=== PATIENT | male | born 1960 | race African-American/Black ===

== ENCOUNTER 2016-09-18 22:10 | Inpatient (IN) | payer OTHER ==
[~2016-09-18] VITALS: Ht 182.9 cm; Wt 82.0 kg
[2016-09-18 22:25] VITALS: BP 152/97; PULSE 129; RESP 18; TEMP 99; O2SAT 99
[2016-09-18] MEDS ORDERED: METF500T PO (22:32)
[2016-09-18] MEDS ORDERED: GLIP5TAB8 PO (22:32)
[2016-09-18] MEDS ORDERED: CYAN1TAB24 (22:32)
[2016-09-18] MEDS ORDERED: SODIUM CHLOR 0.9% 1000 ML INJ 1,000 ML IV ONE (22:45)
[2016-09-18] MEDS ORDERED: ONDANSETRON HCL 4 MG/2 ML VIAL IV ONE (22:45)
--- NOTE | 2016-09-18 22:47 | PD ---
HPI Chief Complaint: GI Complaint Time Seen by Provider: 22:26 Travel History International Travel<30 days: No Contact w/Intl Traveler<30days: No Traveled to known affect area: No History of Present Illness HPI The patient is a 56 year old male who presents to the [facility] emergency department with a history of nausea, vomiting, and diarrhea that began this morning at approximately 8 AM. The patient reports that he's had between 15 and 30 episodes of vomiting. He reports that he's had slightly less episodes of diarrhea. He reports that his emesis has been brown in color. He denies having any prior history of GI bleed. He does report having a history of diabetes mellitus. The patient was brought in by ambulance services and his blood sugar was reportedly in the 290s prior to arrival. The patient reports having midepigastric abdominal pain associated with this. I review systems, the patient denies any recent fevers, cough, congestion, neck pain, chest pain, shortness of breath, urinary symptoms, or neurologic symptoms. [facility] Past Medical History Narrative Medical The patient's past medical history is significant for diabetes mellitus. The patient is followed through the [facility] for his primary care. Diabetes: Yes Patient Takes Glucophage: Yes Tetanus Vaccination: > 5 Years Influenza Vaccination: No Past Surgical History Narrative Surgical The patient denies having any past surgical history. Surgical History: No Previous Surgery Social History Alcohol Use: Yes (DAILY) Tobacco Use: No Substance Use: No Allergies-Medications (Allergen,Severity, Reaction): Coded Allergies: No Known Allergies (Unverified , 09/18/16) Reported Meds & Prescriptions Reported Meds & Active Scripts Active Reported B12 (Cyanocobalamin) 1,000 Mcg Tab Glipizide 5 Mg Tab 5 Mg PO BIDAC Take 30 minutes before a meal Metformin (Metformin HCl) 500 Mg Tab 500 Mg PO BIDPC With meals Review of Systems Except as stated in HPI: all other systems reviewed are Neg General / Constitutional: No: Fever Eyes: No: Visual changes HENT: No: Headaches Cardiovascular: No: Chest Pain or Discomfort Respiratory: No: Shortness of Breath Gastrointestinal: Positive: Nausea, Vomiting, Diarrhea, Abdominal Pain, Changes in Bowel Habits, Indigestion, Loss of Appetite, No: Hematemesis, Hematochezia, Constipation Genitourinary: No: Dysuria Musculoskeletal: No: Pain Skin: No Rash Neurologic: No: Weakness, Focal Abnormalities, Change in Mentation, Slurred Speech, Sensory Disturbance Psychiatric: No: Depression Endocrine: No: Polydipsia Hematologic/Lymphatic: No: Easy Bruising Physical Exam Narrative General: The patient is a well-developed well-nourished male in no acute distress. Head and Neck exam: Head is normocephalic atraumatic. Eyes: EOMI, pupils are equal round and reactive to light. Nose: Midline septum with pink mucous membranes Mouth: Dentition unremarkable. Moist mucus membranes. Posterior oropharynx is not erythematous. No tonsillar hypertrophy. Uvula midline. Airway patent. Neck: No palpable lymphadenopathy. No nuchal rigidity. No thyromegaly. Cardiovascular: Sinus tachycardia in the low 100 without murmurs, gallops, or rubs. No pulse deficit to the extremities on simultaneous auscultation and palpation of his radial artery. Lungs: Clear to auscultation bilaterally. No wheezes, rhonchi, or rales. Abdomen: Soft, with tenderness on palpation of the midepigastric area, no other tenderness on palpation of the other quadrants of the abdomen. No guarding, rebound, or rigidity. Normal bowel sounds are audible. No tenderness on palpation of McBurney's point. Negative [place] sign. Extremities: No clubbing, cyanosis, or edema. 2+ pulses in all 4 extremities. No calf tenderness on motion. Back: No spinous process tenderness to palpation. No costovertebral angle tenderness to palpation. Neurologic Exam: Grossly nonfocal. Skin Exam: No rash noted. Intact skin that is warm and dry. Data Data Last Documented VS Vital Signs Date Time Temp Pulse Resp B/P Pulse Ox O2 Delivery O2 Flow Rate FiO2 09/18/16 23:33 113 18 148/92 99 Room Air 09/18/16 22:25 99.0 Orders Complete Blood Count With Diff (09/18/16 22:37) Comprehensive Metabolic Panel (09/18/16 22:37) Creatine Kinase (Cpk) (09/18/16 22:37) Ckmb (Isoenzyme) Profile (09/18/16 22:37) Troponin I (09/18/16 22:37) Act Partial Throm Time (Ptt) (09/18/16 22:37) Lipase (09/18/16 22:37) Urinalysis - C+S If Indicated (09/18/16 22:37) Fibrinogen (09/18/16 22:37) Magnesium (Mg) (09/18/16 22:37) Beta Hydroxybutyrate (Acetone) (09/18/16 22:37) Chest, Single Ap (09/18/16 22:37) Iv Access Insert/Monitor (09/18/16 22:37) Ecg Monitoring (09/18/16 22:37) Oximetry (09/18/16 22:37) Sodium Chlor 0.9% 1000 Ml Inj (Ns 1000 M (09/18/16 22:45) Ondansetron Inj (Zofran Inj) (09/18/16 22:45) Pantoprazole Inj (Protonix Inj) (09/18/16 23:00) Pantoprazole Inj (Protonix Inj) (09/18/16 23:00) CKMB (09/18/16 22:45) CKMB% (09/18/16 22:45) Sodium Chlor 0.9% 1000 Ml Inj (Ns 1000 M (09/19/16 00:15) Prothrombin Time / Inr (Pt) (09/19/16 00:15) Blood Gas Venous (Vbg) (09/19/16 00:16) Blood Glucose (09/19/16 00:26) Admit Order (Ed Use Only) (09/19/16 00:42) Labs Laboratory Tests Test 09/18/16 09/18/16 09/19/16 22:45 23:05 00:25 White Blood Count 12.5 TH/MM3 Red Blood Count 4.57 MIL/MM3 Hemoglobin 14.9 GM/DL Hematocrit 43.2 % Mean Corpuscular Volume 94.6 FL Mean Corpuscular Hemoglobin 32.7 PG Mean Corpuscular Hemoglobin 34.5 % Concent Red Cell Distribution Width 13.6 % Platelet Count 325 TH/MM3 Mean Platelet Volume 8.1 FL Neutrophils (%) (Auto) 90.6 % Lymphocytes (%) (Auto) 4.9 % Monocytes (%) (Auto) 4.2 % Eosinophils (%) (Auto) 0.0 % Basophils (%) (Auto) 0.3 % Neutrophils # (Auto) 11.3 TH/MM3 Lymphocytes # (Auto) 0.6 TH/MM3 Monocytes # (Auto) 0.5 TH/MM3 Eosinophils # (Auto) 0.0 TH/MM3 Basophils # (Auto) 0.0 TH/MM3 CBC Comment DIFF FINAL Differential Comment Activated Partial 21.3 SEC Thromboplast Time Fibrinogen 423 mg/dL Sodium Level 138 MEQ/L Potassium Level 4.7 MEQ/L Chloride Level 92 MEQ/L Carbon Dioxide Level 28.8 MEQ/L Anion Gap 17 MEQ/L Blood Urea Nitrogen 13 MG/DL Creatinine 1.64 MG/DL Estimat Glomerular Filtration 53 ML/MIN Rate Random Glucose 294 MG/DL Calcium Level 10.3 MG/DL Magnesium Level 2.6 MG/DL Total Bilirubin 1.1 MG/DL Aspartate Amino Transf 59 U/L (AST/SGOT) Alanine Aminotransferase 57 U/L (ALT/SGPT) Alkaline Phosphatase 108 U/L Total Creatine Kinase 284 U/L Creatine Kinase MB LESS THAN 0.5 NG/ML Troponin I LESS THAN 0.02 NG/ML Total Protein 9.4 GM/DL Albumin 4.3 GM/DL Lipase 109 U/L B-Hydroxybutyrate 1.19 MMOL/L Urine Color YELLOW Urine Turbidity CLEAR Urine pH 8.0 Urine Specific [place] 1.020 Urine Protein 30 mg/dL Urine Glucose (UA) 1000 mg/dL Urine Ketones 40 mg/dL Urine Occult Blood NEG Urine Nitrite NEG Urine Bilirubin NEG Urine Urobilinogen LESS THAN 2.0 MG/DL Urine Leukocyte Esterase NEG Urine RBC 7 /hpf Urine WBC 1 /hpf Urine Squamous Epithelial <1 /hpf Cells Urine Bacteria RARE /hpf Urine Mucus FEW /lpf Microscopic Urinalysis Comment CULT NOT INDICATED Blood Gas Puncture Site FROM IV LOCK Blood Gas Patient Temperature 98.6 Venous Blood pH 7.55 Venous Blood Partial Pressure 20 mmHg CO2 Venous Blood Partial Pressure 49 mmHg O2 Venous Blood HCO3 18 mmol/L Venous Blood Oxygen Saturation 86 % Venous Blood Oxygen Content 14.0 Vol % Venous Blood Base Excess -4.4 mmol/L Oxygen Delivery Device ROOM AIR Blood Gas Inspired Oxygen 21 % MDM Medical Decision Making Medical Screen Exam Complete: Yes Emergency Medical Condition: Yes Medical Record Reviewed: Yes Interpretation(s) Last Impressions Abdomen X-Ray 09/19/16 0000 Signed Impressions: Service Date/Time: Monday, September 19, 2016 01:28 - CONCLUSION: 1. No evidence of obstruction. Tristin Quispe MD Chest X-Ray 09/18/16 2237 Signed Impressions: Service Date/Time: Sunday, September 18, 2016 22:36 - CONCLUSION: No acute cardiopulmonary disease. Patria Neri MD Differential Diagnosis Viral versus bacterial gastroenteritis, versus GI bleed related to peptic ulcer disease, versus hemorrhagic esophagitis, versus Yadira-Ambriz tear, versus gastritis, versus acute pancreatitis Narrative Course During the course of the patients emergency department visit, the patients history, examination, and differential diagnosis were reviewed with the patient. The patient had IV access obtained and blood work sent for analysis. The patient states on a panel monitor with oximetry and blood pressure monitoring. The patient had an EKG done on arrival. The patient's EKG shows a sinus tachycardia rate of 112, nonspecific T-wave abnormalities, no acute ST segment elevation. The patient was initially provided normal saline 1 L IV fluid bolus, Zofran 4 mg IV. Gastric occult was done of his emesis and was positive for blood. The patient was started on Protonix 80 mg IV followed by a drip. The patients laboratory studies were reviewed and remarkable for a white count of 12.5, hemoglobin 14.9, platelets 325 with 90.6 neutrophils, CMP is remarkable for chloride of 92, anion gap 17, creatinine 1.64, glucose 294, calcium 10.3, magnesium 2.6, total bilirubin 1.1, AST 59, CPK 284, troponin I less than 0.02, lipase 109, PT 11.1, PTT 21.3, beta hydroxybutyrate is 1.19, urinalysis shows thousand glucose 40 ketones 7 RBCs otherwise unremarkable ABG reveals a pH of 7.55. Radiology studies were reviewed and remarkable for a chest x-ray that shows no acute abnormality. As the patient is not acidotic the patient was given regular insulin for hyperglycemia coverage subcutaneously. The patient was given 5 units subcutaneous 1. The patient was continued on normal saline for hydration, and given a second liter of normal saline IV fluids. The patients results were discussed with the patient, including the plan of care. I explained that further testing and/ or monitoring is indicated based on the patients history, examination, and/ or laboratory findings. Therefore, I recommended admission for additional evaluation. The patient expressed understanding and was agreeable with this plan. The patient was admitted to the hospital in guarded condition and [facility] a [facility] Physician Communication Physician Communication The patient's case was discussed with Dr. Ramsey who did agree to admit the patient for further evaluation and treatment at this time. Diagnosis Primary Impression: Nausea, vomiting, and diarrhea Additional Impression: Coffee ground emesis Admitting Information Admitting Physician Requests: Admit Eli Garcia MD Sep 18, 2016 22:47
--- NOTE | 2016-09-18 22:56 | RADRPT ---
EXAM DATE/TIME: 09/18/2016 22:36 [facility] COMPARISON: No previous studies available for comparison. INDICATIONS : Vomiting MEDICAL HISTORY : None. SURGICAL HISTORY : None. ENCOUNTER: Initial ACUITY: 1 day PAIN SCORE: 0/10 LOCATION: chest FINDINGS: The lungs are clear without infiltrate, nodule, or mass. There is no appreciable pleural effusion fo r technique. Heart and mediastinum are unremarkable. CONCLUSION: No acute cardiopulmonary disease. Patria Neri MD on September 18, 2016 at 22:53 Board Certified Radiologist. This report was verified electronically.
[2016-09-18 23:00] LABS: AUTOMATED NEUTROPHIL # 11.3 TH/MM3 (1.8-7.7); BASOPHIL % 0.3 % (0.0-2.0); HEMATOCRIT 43.2 % (39.0-51.0); HEMO FLAGS DIFF FINAL; LYMPH % 4.9 % (9.0-44.0); LYMPHOCYTE # 0.6 TH/MM3 (1.0-4.8); MEAN CELL VOLUME 94.6 FL (80.0-100.0); MEAN CORPUSCULAR HEMOGLOBIN 32.7 PG (27.0-34.0); MEAN CORPUSCULAR HGB CONC 34.5 % (32.0-36.0); MONO % 4.2 % (0.0-8.0); NEUT % 90.6 % (16.0-70.0); PLATELET COUNT 325 TH/MM3 (150-450); RED BLOOD COUNT 4.57 MIL/MM3 (4.50-5.90); RED CELL DISTRIBUTION WIDTH 13.6 % (11.6-17.2); WHITE BLOOD COUNT 12.5 TH/MM3 (4.0-11.0)
[2016-09-18] MEDS ORDERED: PANTOPRAZOLE INJ 80 MG in SODIUM CHLORIDE 0.9% INJ 35 ML IV ONE (23:00)
[2016-09-18 23:10] LABS: APTT (PATIENT) 21.3 SEC (24.3-30.1)
[2016-09-18 23:16] LABS: ALKALINE PHOSPHATASE 108 U/L (45-117); ALT (GPT) 57 U/L (12-78); ANION GAP 17 MEQ/L (5-15); AST (GOT) 59 U/L (15-37); BETA-HYDROXYBUTYRATE 1.19 MMOL/L (0.00-0.39); BICARBONATE 28.8 MEQ/L (21.0-32.0); BLOOD UREA NITROGEN 13 MG/DL (7-18); CHLORIDE 92 MEQ/L (98-107); CREATINE KINASE 284 U/L (39-308); GLOMERULAR FILTRATION RATE 53 ML/MIN (>89); MAGNESIUM 2.6 MG/DL (1.5-2.5); POTASSIUM 4.7 MEQ/L (3.5-5.1); SODIUM (NA) 138 MEQ/L (136-145); TOTAL BILIRUBIN ADULT 1.1 MG/DL (0.2-1.0)
[2016-09-18 23:28] LABS: CKMB LESS THAN 0.5 NG/ML (0.5-3.6)
[2016-09-18] MEDS: PANTOPRAZOLE INJ 80 MG in SODIUM CHLORIDE 0.9% INJ 100 ML IV SCH (23:32)
[2016-09-18 23:33] VITALS: BP 148/92; PULSE 113; RESP 18; O2SAT 99
[2016-09-19] VITALS (9 sets, daily range): BP systolic 125–176; BP diastolic 81–105; PULSE 78–121; RESP 17–20; TEMP 98.2–98.9; O2SAT 96–100
[2016-09-19 00:06] LABS: BACTERIA, URINE RARE /hpf; BLOOD, URINE NEG (NEG); COMMENT (UR) CULT NOT INDICATED; CULTURE IF INDICATED CULT NOT INDICATED; GLUCOSE,URINE 1000 mg/dL (NEG); KETONE, URINE 40 mg/dL (NEG); MUCUS URINE FEW /lpf (OCC); NITRITE,URINE NEG (NEG); SQUAMOUS EPITHELIAL CELL URINE <1 /hpf (0-5); URINE COLOR YELLOW (YELLW/STRAW)
[2016-09-19] MEDS ORDERED: SODIUM CHLOR 0.9% 1000 ML INJ 1,000 ML IV ONE (00:15)
[2016-09-19] MEDS ORDERED: SODIUM CHLOR 0.9% 1000 ML INJ 1,000 ML IV SCH (00:46)
[2016-09-19] MEDS ORDERED: SODIUM CHLORIDE 0.9% FLUSH 10 ML FLUSH IV FLUSH PRN (01:00)
[2016-09-19] MEDS ORDERED: INSULIN HUMAN REGULAR 1,000 UNITS/10 ML VIAL SQ ONE (01:00)
[2016-09-19] MEDS ORDERED: GLUCAGON 1 MG/ML VIAL OTHER PRN ×2 (01:00→01:30)
[2016-09-19] MEDS ORDERED: DEXTROSE 50% IN WATER 50 ML VIAL(D50) IV PUSH PRN ×2 (01:00→01:30)
[2016-09-19] MEDS ORDERED: NALOXONE HCL 0.4 MG/ML AMP IV PRN (01:00)
--- NOTE | 2016-09-19 01:04 | HHI.HP ---
[facility] Admission Diagnosis GI Bleed, Hyperglycemia, dehydration Diagnoses: Travel History International Travel<30 Days: No Contact w/Intl Traveler <30 Da: No Traveled to Known Affected Are: No History of Present Illness History from patient, ER physician to medication, and review of medical records. Patient reported that he came to the hospital because he's been having nausea vomiting which started today. Reports he last vomited about 5 times at least. Also reports of diarrhea which is about 5 times at niece as well. Reports black color stool. Also reports that the vomitus was black in color. ER physician also confirmed that the vomitus in ER was positive for occult blood. Patient denies taking any NSAIDs. He's not on any blood thinners. No fever. Denies any urinary burning or pain on urination. He does report of epigastric pain but stated that this only started after he vomited several times. Patient is a diabetic since age of [age] years old or so. He states that his A1c was 13 previously and currently is at 6. Review of Systems Except as stated in HPI: all other systems reviewed are Neg Past Family Social History Past Medical History dm Past Surgical History none Allergies: Coded Allergies: No Known Allergies (Unverified , 09/18/16) Family History mom breast cancer mom diabetic Social History no smoking drink socially no drugs lives by self, still drives Physical Exam Vital Signs Vital Signs Date Time Temp Pulse Resp B/P Pulse Ox O2 Delivery O2 Flow Rate FiO2 09/18/16 23:33 113 18 148/92 99 Room Air 09/18/16 22:25 99.0 129 18 152/97 99 Physical Exam GENERAL: This is a well-nourished, well-developed patient, in mild distress from constant nausea and vomiting and hiccups SKIN: No rashes, ecchymoses or lesions. Cool and dry. HEAD: Atraumatic. Normocephalic. No temporal or scalp tenderness. EYES: No scleral icterus. No injection or drainage. ENT: Nose without bleeding, purulent drainage or septal hematoma. Airway patent. NECK: Trachea midline. No JVD CARDIOVASCULAR: Regular rate and rhythm without murmurs, gallops, or rubs. RESPIRATORY: Clear to auscultation. Breath sounds equal bilaterally. No wheezes , rales, or rhonchi. GASTROINTESTINAL: Abdomen soft, non-tender, nondistended. . No guarding. MUSCULOSKELETAL: Extremities without clubbing, cyanosis, or edema. No calf tenderness. NEUROLOGICAL: Awake and alert. Motor and sensory grossly within normal limits. Normal speech. Laboratory Laboratory Tests Test 09/18/16 09/18/16 22:45 23:05 White Blood Count 12.5 Red Blood Count 4.57 Hemoglobin 14.9 Hematocrit 43.2 Mean Corpuscular Volume 94.6 Mean Corpuscular Hemoglobin 32.7 Mean Corpuscular Hemoglobin 34.5 Concent Red Cell Distribution Width 13.6 Platelet Count 325 Mean Platelet Volume 8.1 Neutrophils (%) (Auto) 90.6 Lymphocytes (%) (Auto) 4.9 Monocytes (%) (Auto) 4.2 Eosinophils (%) (Auto) 0.0 Basophils (%) (Auto) 0.3 Neutrophils # (Auto) 11.3 Lymphocytes # (Auto) 0.6 Monocytes # (Auto) 0.5 Eosinophils # (Auto) 0.0 Basophils # (Auto) 0.0 CBC Comment DIFF FINAL Differential Comment Activated Partial 21.3 Thromboplast Time Fibrinogen 423 Sodium Level 138 Potassium Level 4.7 Chloride Level 92 Carbon Dioxide Level 28.8 Anion Gap 17 Blood Urea Nitrogen 13 Creatinine 1.64 Estimat Glomerular Filtration 53 Rate Random Glucose 294 Calcium Level 10.3 Magnesium Level 2.6 Total Bilirubin 1.1 Aspartate Amino Transf 59 (AST/SGOT) Alanine Aminotransferase 57 (ALT/SGPT) Alkaline Phosphatase 108 Total Creatine Kinase 284 Creatine Kinase MB LESS THAN 0.5 Troponin I LESS THAN 0.02 Total Protein 9.4 Albumin 4.3 Lipase 109 B-Hydroxybutyrate 1.19 Urine Color YELLOW Urine Turbidity CLEAR Urine pH 8.0 Urine Specific [place] 1.020 Urine Protein 30 Urine Glucose (UA) 1000 Urine Ketones 40 Urine Occult Blood NEG Urine Nitrite NEG Urine Bilirubin NEG Urine Urobilinogen LESS THAN 2.0 Urine Leukocyte Esterase NEG Urine RBC 7 Urine WBC 1 Urine Squamous Epithelial <1 Cells Urine Bacteria RARE Urine Mucus FEW Microscopic Urinalysis Comment CULT NOT INDICATED Result Diagram: 09/18/16224409/18/162244 Imaging Last 48 hours Impressions Abdomen X-Ray 09/19/16 0000 Signed Impressions: Service Date/Time: Monday, September 19, 2016 01:28 - CONCLUSION: 1. No evidence of obstruction. Tristin Quispe MD Chest X-Ray 09/18/16 2237 Signed Impressions: Service Date/Time: Sunday, September 18, 2016 22:36 - CONCLUSION: No acute cardiopulmonary disease. Patria Neri MD Assessment and Plan Assessment and Plan Impression: Nausea/vomiting/diarrhealikely gastroenteritis Upper GI bleedlikely from gastritis/esophagitis. Mild anion gap metabolic acidosislikely from renal failure secondary to dehydration, with GI loss. Would need to watch out for DKA. Acute renal failuresecondary to dehydration/volume loss History of diabetes Plan: Patient was given normal saline 2 L bolus total. We'll repeat BMP status post hydration and follow anion gap If anion gap is normal, will hydrate patient with D5 half normal saline at 100 cc per hour. Cover with low-dose sliding scale while on D5 IV fluids. We'll monitor fingersticks every 4 hours. Nausea control. Would obtain KUB to rule out perforation/air under diaphragm. At this point, CT abdomen will not be obtained since patient cannot tolerate by mouth contrast. Abdomen is also quite benign on examination apart from the fact that he has nausea and vomiting and diarrhea. We'll check stool studies. Pantoprazole IV drip. GI consult. Nothing by mouth. Serial hemoglobin hematocrit. DVT prophylaxiswith SCD. GI prophylaxis on pantoprazole. Physician Certification 2 Midnight Certification Type: Admission for Inpatient Services Order for Inpatient Services The services are ordered in accordance with Medicare regulations or non- Medicare payer requirements, as applicable. In the case of services not specified as inpatient-only, they are appropriately provided as inpatient services in accordance with the 2-midnight benchmark. Estimated LOS (days): 2 days is the estimated time the patient will need to remain in the hospital, assuming treatment plan goals are met and no additional complications. Post-Hospital Plan: Kathia Coronado MD September 19, 2016 01:04
[2016-09-19] MEDS: ONDANSETRON HCL 4 MG/2 ML VIAL IVP PRN ×4 (01:07→23:39)
[2016-09-19 01:13] LABS: BLOOD GAS VENOUS BASE EXCESS -4.4 mmol/L (-2-2); BLOOD GAS VENOUS HCO3 18 mmol/L (22-26); BLOOD GAS VENOUS O2 HGB SAT 86 % (70-76); BLOOD GAS VENOUS PCO2 20 mmHg (44-48); BLOOD GAS VENOUS PO2 49 mmHg (35-40); BLOOD GAS VENOUS pH 7.55 (7.360-7.400); CRITICAL VALUE YES; FIO2 21 %; OXYGEN DEVICE ROOM AIR; TEMP CORR TO 98.6
[2016-09-19 01:14] LABS: DRAW SITE FROM IV LOCK; STAT YES
--- NOTE | 2016-09-19 02:00 | RADRPT ---
EXAM DATE/TIME: 09/19/2016 01:28 [facility] COMPARISON: No previous studies available for comparison. INDICATIONS : Gastrointestinal bleed. Nausea, Vomitting. MEDICAL HISTORY : Diabetes mellitus type I. SURGICAL HISTORY : None. ENCOUNTER: Initial ACUITY: 1 day PAIN SCORE: 2/10 LOCATION: Abdomen FINDINGS: Supine view of the abdomen was performed. The abdominal bowel gas pattern is normal. No abnormal ma sses, calcifications, or organomegaly is seen. The osseous structures are unremarkable. CONCLUSION: 1. No evidence of obstruction. Tristin Quispe MD on September 19, 2016 at 1:58 Board Certified Radiologist. This report was verified electronically.
[2016-09-19] MEDS: DEXT 5%-NACL 0.45% 1000 ML INJ 1,000 ML IV SCH ×3 (02:40→23:15)
[2016-09-19 03:04] LABS: HEMATOCRIT 40.5 % (39.0-51.0); REVIEW FLAG FINAL
[2016-09-19 03:20] LABS: BICARBONATE 30.7 MEQ/L (21.0-32.0); POTASSIUM 3.4 MEQ/L (3.5-5.1)
[2016-09-19 03:26] LABS: PROTHROMBIN TIME - PATIENT 11.1 SEC (9.8-11.6)
[2016-09-19 06:53] LABS: ALKALINE PHOSPHATASE 103 U/L (45-117); ALT (GPT) 54 U/L (12-78); ANION GAP 10 MEQ/L (5-15); AST (GOT) 42 U/L (15-37); BICARBONATE 30.8 MEQ/L (21.0-32.0); BLOOD UREA NITROGEN 11 MG/DL (7-18); CHLORIDE 100 MEQ/L (98-107); GLOMERULAR FILTRATION RATE 75 ML/MIN (>89); POTASSIUM 3.3 MEQ/L (3.5-5.1); SODIUM (NA) 141 MEQ/L (136-145)
[2016-09-19] MEDS ORDERED: INSULIN ASPART SUPPLEMENTAL SCALE SQ SCH (07:00)
[2016-09-19 07:09] LABS: BASOPHIL % 0.2 % (0.0-2.0); HEMATOCRIT 41.7 % (39.0-51.0); HEMO FLAGS DIFF FINAL; LYMPH % 6.9 % (9.0-44.0); LYMPHOCYTE # 0.9 TH/MM3 (1.0-4.8); MEAN CELL VOLUME 94.6 FL (80.0-100.0); MEAN CORPUSCULAR HEMOGLOBIN 32.1 PG (27.0-34.0); MONO % 5.1 % (0.0-8.0); NEUT % 87.8 % (16.0-70.0); PLATELET COUNT 274 TH/MM3 (150-450); RED BLOOD COUNT 4.41 MIL/MM3 (4.50-5.90); WHITE BLOOD COUNT 12.5 TH/MM3 (4.0-11.0)
[2016-09-19] MEDS: INSULIN ASPART SUPPLEMENTAL SCALE SQ SCH ×4 (07:28→23:14)
[2016-09-19] MEDS: POTASSIUM CHLOR 20 MEQ PREMIX 100 ML IV SCH ×2 (07:28→08:39)
[2016-09-19] MEDS: SODIUM CHLORIDE 0.9% FLUSH 10 ML FLUSH IV FLUSH SCH ×2 (08:39→20:16)
--- NOTE | 2016-09-19 09:33 | PD.CONS ---
HPI History of Present Illness This is a 56 year old male who came to the emergency room for evaluation of nausea and vomiting. His symptoms began suddenly yesterday evening around 8 PM. He states that he did not have anything to eat prior to the onset of his symptoms. He complains of nausea and vomiting with coffee ground emesis. He also complains of moderate epigastric discomfort which he describes as a severe gas pain. He feels that if he could just belch, his pain would improve. However, whenever he goes to belch he actually vomits a small amount of coffee ground emesis. He also complains of black tarry stools since yesterday. He does not normally have reflux, but states that he has been having severe heartburn since this morning. He also reports a 27 pound weight loss over the past year (unintentionally). He denies any history of peptic ulcer disease. He denies the use of ibuprofen or Aleve. He does drink alcohol, although the amount is unclear. He states that he has not had any ETOH in 3 weeks and then drank on (unable to quantify amount) and started feeling bad on Monday , but is unable to describe this further. He has never had an EGD/Colonoscopy. (Dianna Denise) PFSH Past Medical History Diabetes Past Surgical History Denies (Dianna Denise) Coded Allergies: No Known Allergies (Unverified , 09/18/16) Medications Allergies Coded Allergies Type Severity Reaction Last Updated Verified No Known Allergies 09/18/16 No Active Scripts Medications Dose Route/Sig Days Date Category Dose Instructions B12 (Cyanocobalamin) 1,000 Mcg Tab 09/18/16 Reported Glipizide 5 Mg Tab 5 Mg PO BIDAC 09/18/16 Reported Take 30 minutes before a meal Metformin (Metformin HCl) 500 Mg Tab 500 Mg PO BIDPC 09/18/16 Reported With meals Family History Mom breast cancer, DM Social History Denies tobacco ETOH, amount unclear. He is unable to quantify (Dianna Denise) Review of Systems Constitutional: COMPLAINS OF: Fatigue, Weight loss, Change in appetite Respiratory: DENIES: Cough Cardiovascular: DENIES: Chest pain Gastrointestinal: COMPLAINS OF: Abdominal pain, Black stools, Diarrhea, Nausea , Vomiting, Heartburn, Hematemesis, DENIES: Constipation Musculoskeletal: DENIES: Joint pain Integumentary: DENIES: Abnormal pigmentation Hematologic/lymphatic: DENIES: Bruising Neurologic: DENIES: Headache Psychiatric: DENIES: Confusion (HowieDianna Wallace DULCE) GI Exam Vitals I&O Vital Signs Date Time Temp Pulse Resp B/P Pulse Ox O2 Delivery O2 Flow Rate FiO2 09/19/16 08:00 98.2 121 18 125/83 97 09/19/16 05:27 116 09/19/16 05:03 Room Air 09/19/16 04:25 98.5 118 17 165/95 98 09/19/16 01:30 118 18 146/81 98 Room Air 09/18/16 23:33 113 18 148/92 99 Room Air 09/18/16 22:25 99.0 129 18 152/97 99 I/O 09/18/16 09/18/16 09/18/16 09/19/16 09/19/16 09/19/16 07:00 15:00 23:00 07:00 15:00 23:00 Intake Total 0 ml Balance 0 ml Intake Oral 0 ml # Voids 1 # Bowel Movements 0 Imaging Last Impressions Abdomen X-Ray 09/19/16 0000 Signed Impressions: Service Date/Time: Monday, September 19, 2016 01:28 - CONCLUSION: 1. No evidence of obstruction. Tristin Quispe MD Chest X-Ray 09/18/167 Signed Impressions: Service Date/Time: Sunday, September 18, 2016 22:36 - CONCLUSION: No acute cardiopulmonary disease. Patria Neri MD Laboratory Test 09/18/16 09/18/16 09/19/16 09/19/16 22:45 23:05 00:25 02:35 White Blood Count 12.5 TH/MM3 Red Blood Count 4.57 MIL/MM3 Hemoglobin 14.9 GM/DL 14.0 GM/DL Hematocrit 43.2 % 40.5 % Mean Corpuscular Volume 94.6 FL Mean Corpuscular Hemoglobin 32.7 PG Mean Corpuscular Hemoglobin 34.5 % Concent Red Cell Distribution Width 13.6 % Platelet Count 325 TH/MM3 Mean Platelet Volume 8.1 FL Neutrophils (%) (Auto) 90.6 % Lymphocytes (%) (Auto) 4.9 % Monocytes (%) (Auto) 4.2 % Eosinophils (%) (Auto) 0.0 % Basophils (%) (Auto) 0.3 % Neutrophils # (Auto) 11.3 TH/MM3 Lymphocytes # (Auto) 0.6 TH/MM3 Monocytes # (Auto) 0.5 TH/MM3 Eosinophils # (Auto) 0.0 TH/MM3 Basophils # (Auto) 0.0 TH/MM3 CBC Comment DIFF FINAL Differential Comment Activated Partial 21.3 SEC Thromboplast Time Fibrinogen 423 mg/dL Sodium Level 138 MEQ/L 143 MEQ/L Potassium Level 4.7 MEQ/L 3.4 MEQ/L Chloride Level 92 MEQ/L 100 MEQ/L Carbon Dioxide Level 28.8 MEQ/L 30.7 MEQ/L Anion Gap 17 MEQ/L 12 MEQ/L Blood Urea Nitrogen 13 MG/DL 11 MG/DL Creatinine 1.64 MG/DL 1.38 MG/DL Estimat Glomerular Filtration 53 ML/MIN 64 ML/MIN Rate Random Glucose 294 MG/DL 247 MG/DL Calcium Level 10.3 MG/DL 9.4 MG/DL Magnesium Level 2.6 MG/DL Total Bilirubin 1.1 MG/DL Aspartate Amino Transf 59 U/L (AST/SGOT) Alanine Aminotransferase 57 U/L (ALT/SGPT) Alkaline Phosphatase 108 U/L Total Creatine Kinase 284 U/L Creatine Kinase MB LESS THAN 0.5 NG/ML Troponin I LESS THAN 0.02 NG/ML Total Protein 9.4 GM/DL Albumin 4.3 GM/DL Lipase 109 U/L B-Hydroxybutyrate 1.19 MMOL/L Urine Color YELLOW Urine Turbidity CLEAR Urine pH 8.0 Urine Specific [place] 1.020 Urine Protein 30 mg/dL Urine Glucose (UA) 1000 mg/dL Urine Ketones 40 mg/dL Urine Occult Blood NEG Urine Nitrite NEG Urine Bilirubin NEG Urine Urobilinogen LESS THAN 2.0 MG/DL Urine Leukocyte Esterase NEG Urine RBC 7 /hpf Urine WBC 1 /hpf Urine Squamous Epithelial <1 /hpf Cells Urine Bacteria RARE /hpf Urine Mucus FEW /lpf Microscopic Urinalysis Comment CULT NOT INDICATED Blood Gas Puncture Site FROM IV LOCK Blood Gas Patient Temperature 98.6 Venous Blood pH 7.55 Venous Blood Partial Pressure 20 mmHg CO2 Venous Blood Partial Pressure 49 mmHg O2 Venous Blood HCO3 18 mmol/L Venous Blood Oxygen Saturation 86 % Venous Blood Oxygen Content 14.0 Vol % Venous Blood Base Excess -4.4 mmol/L Oxygen Delivery Device ROOM AIR Blood Gas Inspired Oxygen 21 % Prothrombin Time 11.1 SEC Prothromb Time International 1.0 RATIO Ratio Blood Type A POSITIVE Antibody Screen NEGATIVE Blood Bank Comment Test 09/19/16 05:41 White Blood Count 12.5 TH/MM3 Red Blood Count 4.41 MIL/MM3 Hemoglobin 14.2 GM/DL Hematocrit 41.7 % Mean Corpuscular Volume 94.6 FL Mean Corpuscular Hemoglobin 32.1 PG Mean Corpuscular Hemoglobin 34.0 % Concent Red Cell Distribution Width 14.0 % Platelet Count 274 TH/MM3 Mean Platelet Volume 7.9 FL Neutrophils (%) (Auto) 87.8 % Lymphocytes (%) (Auto) 6.9 % Monocytes (%) (Auto) 5.1 % Eosinophils (%) (Auto) 0.0 % Basophils (%) (Auto) 0.2 % Neutrophils # (Auto) 11.0 TH/MM3 Lymphocytes # (Auto) 0.9 TH/MM3 Monocytes # (Auto) 0.6 TH/MM3 Eosinophils # (Auto) 0.0 TH/MM3 Basophils # (Auto) 0.0 TH/MM3 CBC Comment DIFF FINAL Differential Comment Sodium Level 141 MEQ/L Potassium Level 3.3 MEQ/L Chloride Level 100 MEQ/L Carbon Dioxide Level 30.8 MEQ/L Anion Gap 10 MEQ/L Blood Urea Nitrogen 11 MG/DL Creatinine 1.21 MG/DL Estimat Glomerular Filtration 75 ML/MIN Rate Random Glucose 226 MG/DL Calcium Level 9.5 MG/DL Total Bilirubin 1.0 MG/DL Aspartate Amino Transf 42 U/L (AST/SGOT) Alanine Aminotransferase 54 U/L (ALT/SGPT) Alkaline Phosphatase 103 U/L Total Protein 8.9 GM/DL Albumin 4.2 GM/DL Physical Examination HEENT: Normocephalic; atraumatic; no jaundice CHEST: CTA CARDIAC: RRR ABDOMEN: Soft, nondistended, moderate epigastric tenderness; no hepatosplenomegaly; bowel sounds are present in all four quadrants. EXTREMITIES: No clubbing, cyanosis, or edema. SKIN: Normal; no rash; no jaundice. CAR WRECKER: No focal deficits; alert and oriented times three. (Dianna Denise) Assessment and Plan Plan ASSESSMENT: - Upper GIB. 1 day hx of coffee ground emesis and melena. No hx PUD. Unclear ETOH use- downplays and unable to quantify. No NSAID use. H/H stable 14.2/ 41.7. PPI gtt. - N/V, Abdominal pain. Abdomen X-Ray (09/19/16)---> 1. No evidence of obstruction. Reports moderate epigastric pain x 1 day. PPI - GERD. States he does not usually have this but has severe heartburn/reflux since he woke up. PPI - Mild elevation of LFTs. Improved. T. Bili 1.0, AST 42, ALT 54, Alk Phosph 103. - VALERIA, improved. - DM per primary. PLAN: - Plan for egd in am - Obtain consents - Clear liquids - NPO after MN - Protonix Gtt - CBC, CMP in am - Supportive care - Further recommendations to follow based on results of above - Pt seen and examined by Dr. Pimentel and myself and this note is written on his behalf (Dianna Denise) Physician Comments Seen and examined with DULCE, egd planned for tomorrow. Discussed with pt. Thank you. (Karely Pimentel MD) Dianna Denise September 19, 2016 09:33 Karely Pimentel MD September 19, 2016 20:44
[2016-09-19] MEDS: PANTOPRAZOLE INJ 80 MG in SODIUM CHLORIDE 0.9% INJ 100 ML IV SCH ×3 (10:39→23:15)
[2016-09-19 12:57] LABS: REVIEW FLAG FINAL
[2016-09-19 16:40] LABS: REVIEW FLAG FINAL
[2016-09-19] MEDS: MORPHINE SULFATE 4 MG/ML INJ IV PUSH PRN ×2 (20:15→23:39)
[2016-09-19] MEDS: METOCLOPRAMIDE HCL 10 MG/2 ML VIAL IV PUSH PRN (20:15)
--- NOTE | 2016-09-19 22:51 | EKG ---
Date Performed: 09/18/2016 Time Performed: 22:25:22 PTAGE: 56 years EKG: SINUS TACHYCARDIA NONSPECIFIC T-WAVE ABNORMALITY ABNORMAL RHYTHM ECG NO PREVIOUS TRACING DOCTOR: Khanh Kim Interpretating Date/Time 09/19/2016 22:48:47
[2016-09-20] VITALS (7 sets, daily range): BP systolic 109–187; BP diastolic 76–117; PULSE 85–108; RESP 17–19; TEMP 98–98.6; O2SAT 95–99
[2016-09-20] MEDS ORDERED: CHLORHEXIDINE GLUCONATE 2 % 1 PACK (2 CLOTHS) TOPICAL PRN (05:15)
[2016-09-20] MEDS ORDERED: INSULIN HUMAN REGULAR 1,000 UNITS/10 ML VIAL SQ PRN (05:15)
[2016-09-20] MEDS ORDERED: LACTATED RINGER'S 1000 ML IV PRN (05:15)
[2016-09-20] MEDS ORDERED: POVIDONE IODINE 5% (ANTISEPSIS KIT) 4 APPLICATIONS EACH NARE PRN (05:15)
[2016-09-20] MEDS ORDERED: METOPROLOL TARTRATE 25 MG TAB PO PRN (05:15)
[2016-09-20] MEDS ORDERED: SODIUM CHLORID 0.9% 500 ML IV PRN (05:15)
[2016-09-20] MEDS: INSULIN ASPART SUPPLEMENTAL SCALE SQ SCH ×4 (06:38→21:47)
--- NOTE | 2016-09-20 08:17 | HHI.PR ---
Subjective Remarks This is a pleasant 56 y/o male who came to ER with Nausea, vomit, Melenic stools , loose stools, he has DM II, patient seen in his bedroom, no signs of bleeding, awaiting for EGD and Colonoscopy today, stable in his bedroom, no nausea, vomit or diarrhea. discussed with nurse Miss Ayala Objective Vital Signs Date Time Temp Pulse Resp B/P Pulse Ox O2 Delivery O2 Flow Rate FiO2 09/20/16 03:40 98.2 92 18 109/76 98 09/20/16 00:10 98.6 104 17 146/96 95 09/19/16 20:45 100 129/82 09/19/16 19:30 98.9 113 17 176/105 98 153/103 09/19/16 18:55 Room Air 09/19/16 16:30 98.8 108 20 166/102 96 09/19/16 12:00 78 09/19/16 11:50 98.5 112 20 145/91 100 I/O 09/19/16 09/19/16 09/19/16 09/20/16 09/20/16 09/20/16 07:00 15:00 23:00 07:00 15:00 23:00 Intake Total 0 ml 240 ml 1240 ml 726 ml Output Total 400 ml Balance 0 ml -160 ml 1240 ml 726 ml Intake Oral 0 ml 240 ml 240 ml 0 ml IV Total 1000 ml 726 ml Output Urine Total 400 ml # Voids 1 0 1 # Bowel Movements 0 0 0 0 Result Diagram: 09/19/16 1537 09/19/16 0541 Imaging Last Impressions Abdomen X-Ray 09/19/16 0000 Signed Impressions: Service Date/Time: Monday, September 19, 2016 01:28 - CONCLUSION: 1. No evidence of obstruction. Tristin Quispe MD Chest X-Ray 09/18/16 1027 Signed Impressions: Service Date/Time: Sunday, September 18, 2016 22:36 - CONCLUSION: No acute cardiopulmonary disease. Patria Neri MD Procedures No procedures performed. Other Results Laboratory Tests Test 09/18/16 09/18/16 09/19/16 09/19/16 22:45 23:05 00:25 02:35 Activated Partial 21.3 SEC Thromboplast Time Fibrinogen 423 mg/dL Magnesium Level 2.6 MG/DL Total Creatine Kinase 284 U/L Creatine Kinase MB LESS THAN 0.5 NG/ML Troponin I LESS THAN 0.02 NG/ML Lipase 109 U/L B-Hydroxybutyrate 1.19 MMOL/L Urine Color YELLOW Urine Turbidity CLEAR Urine pH 8.0 Urine Specific [place] 1.020 Urine Protein 30 mg/dL Urine Glucose (UA) 1000 mg/dL Urine Ketones 40 mg/dL Urine Occult Blood NEG Urine Nitrite NEG Urine Bilirubin NEG Urine Urobilinogen LESS THAN 2.0 MG/DL Urine Leukocyte Esterase NEG Urine RBC 7 /hpf Urine WBC 1 /hpf Urine Squamous Epithelial <1 /hpf Cells Urine Bacteria RARE /hpf Urine Mucus FEW /lpf Microscopic Urinalysis Comment CULT NOT INDICATED Blood Gas Puncture Site FROM IV LOCK Blood Gas Patient Temperature 98.6 Venous Blood pH 7.55 Venous Blood Partial Pressure 20 mmHg CO2 Venous Blood Partial Pressure 49 mmHg O2 Venous Blood HCO3 18 mmol/L Venous Blood Oxygen Saturation 86 % Venous Blood Oxygen Content 14.0 Vol % Venous Blood Base Excess -4.4 mmol/L Oxygen Delivery Device ROOM AIR Blood Gas Inspired Oxygen 21 % Prothrombin Time 11.1 SEC Prothromb Time International 1.0 RATIO Ratio Blood Type A POSITIVE Antibody Screen NEGATIVE Blood Bank Comment Test 09/19/16 09/19/16 05:41 15:37 White Blood Count 12.5 TH/MM3 Red Blood Count 4.41 MIL/MM3 Mean Corpuscular Volume 94.6 FL Mean Corpuscular Hemoglobin 32.1 PG Mean Corpuscular Hemoglobin 34.0 % Concent Red Cell Distribution Width 14.0 % Platelet Count 274 TH/MM3 Mean Platelet Volume 7.9 FL Neutrophils (%) (Auto) 87.8 % Lymphocytes (%) (Auto) 6.9 % Monocytes (%) (Auto) 5.1 % Eosinophils (%) (Auto) 0.0 % Basophils (%) (Auto) 0.2 % Neutrophils # (Auto) 11.0 TH/MM3 Lymphocytes # (Auto) 0.9 TH/MM3 Monocytes # (Auto) 0.6 TH/MM3 Eosinophils # (Auto) 0.0 TH/MM3 Basophils # (Auto) 0.0 TH/MM3 CBC Comment DIFF FINAL Differential Comment Sodium Level 141 MEQ/L Potassium Level 3.3 MEQ/L Chloride Level 100 MEQ/L Carbon Dioxide Level 30.8 MEQ/L Anion Gap 10 MEQ/L Blood Urea Nitrogen 11 MG/DL Creatinine 1.21 MG/DL Estimat Glomerular Filtration 75 ML/MIN Rate Random Glucose 226 MG/DL Calcium Level 9.5 MG/DL Total Bilirubin 1.0 MG/DL Aspartate Amino Transf 42 U/L (AST/SGOT) Alanine Aminotransferase 54 U/L (ALT/SGPT) Alkaline Phosphatase 103 U/L Total Protein 8.9 GM/DL Albumin 4.2 GM/DL Hemoglobin 13.2 GM/DL Hematocrit 38.0 % Objective Remarks GENERAL: No acute distress. SKIN: No rashes, ecchymoses or lesions. Cool and dry. HEAD: Atraumatic. Normocephalic. No temporal or scalp tenderness. EYES: No scleral icterus. No injection or drainage. ENT: Nose without bleeding, purulent drainage or septal hematoma. Airway patent. NECK: Trachea midline. No JVD CARDIOVASCULAR: Regular rate and rhythm without murmurs, gallops, or rubs. RESPIRATORY: Clear to auscultation. Breath sounds equal bilaterally. No wheezes , rales, or rhonchi. GASTROINTESTINAL: Abdomen soft, non-tender, nondistended. . No guarding. MUSCULOSKELETAL: Extremities without clubbing, cyanosis, or edema. No calf tenderness. NEUROLOGICAL: Awake and alert. Motor and sensory grossly within normal limits. Normal speech. Medications and IVs Current Medications Medications (Trade) Dose Ordered Sig/[place] Route Start Time Stop Time Status Last Admin (Protonix Inj/NS Inj) 100 ml @ 10 mls/hr CONTINUOUS IV 09/18/16 23:00 09/19/16 23:15 (NS Flush) 2 ml UNSCH PRN IV FLUSH 09/19/16 01:00 (NS Flush) 2 ml BID IV FLUSH 09/19/16 09:00 (Zofran Inj) 4 mg Q6H PRN IVP 09/19/16 01:00 09/19/16 23:39 Naloxone HCl 0.4 mg 0.4 mg UNSCH PRN IV 09/19/16 01:00 (D5W-05/23 NS 1000 ml Inj) 1,000 ml @ 84 mls/hr [id number] IV 09/19/16 01:30 09/19/16 23:15 (D50w (Vial) Inj) 25 ml UNSCH PRN IV PUSH 09/19/16 01:30 (Glucagon Inj) 1 mg UNSCH PRN OTHER 09/19/16 01:30 (Reglan Inj) 10 mg Q8H PRN IV PUSH 09/19/16 19:45 09/19/16 20:15 Morphine Sulfate 2 mg 2 mg Q3H PRN IV PUSH 09/19/16 19:45 09/19/16 23:39 Lactated Ringer's 1,000 ml @ 30 mls/hr Q24H PRN IV 09/20/16 05:15 09/23/16 05:14 (NS 500 ml Inj) 500 ml @ 30 mls/hr [id number] PRN IV 09/20/16 05:15 09/23/16 05:14 A/P Assessment and Plan 1. Upper GI bleed, Given IV fluids, on Protonix Drip, will have EGD and Colonoscopy later today. 2. DM II sliding scale. stable 3. Hypokalemia replaced and following. DVT prophylaxiswith SCD. GI prophylaxis on pantoprazole. Attending Attestation Expected later today or tomorrow AM Jacques Mauro MD September 20, 2016 08:16
[2016-09-20 08:22] LABS: AUTOMATED NEUTROPHIL # 6.2 TH/MM3 (1.8-7.7); BASOPHIL % 0.3 % (0.0-2.0); EOSINOPHIL % 0.2 % (0.0-4.0); HEMATOCRIT 38.9 % (39.0-51.0); HEMO FLAGS DIFF FINAL; LYMPH % 19.8 % (9.0-44.0); LYMPHOCYTE # 1.7 TH/MM3 (1.0-4.8); MEAN CELL VOLUME 95.6 FL (80.0-100.0); MEAN CORPUSCULAR HEMOGLOBIN 32.3 PG (27.0-34.0); MEAN CORPUSCULAR HGB CONC 33.8 % (32.0-36.0); MONO % 9.3 % (0.0-8.0); NEUT % 70.4 % (16.0-70.0); PLATELET COUNT 232 TH/MM3 (150-450); RED BLOOD COUNT 4.07 MIL/MM3 (4.50-5.90); RED CELL DISTRIBUTION WIDTH 13.7 % (11.6-17.2); WHITE BLOOD COUNT 8.7 TH/MM3 (4.0-11.0)
[2016-09-20] MEDS: SODIUM CHLORIDE 0.9% FLUSH 10 ML FLUSH IV FLUSH SCH ×2 (08:47→21:47)
[2016-09-20 08:56] LABS: ALKALINE PHOSPHATASE 89 U/L (45-117); ALT (GPT) 42 U/L (12-78); ANION GAP 7 MEQ/L (5-15); AST (GOT) 72 U/L (15-37); BLOOD UREA NITROGEN 10 MG/DL (7-18); CHLORIDE 104 MEQ/L (98-107); GLOMERULAR FILTRATION RATE 94 ML/MIN (>89); POTASSIUM 3.3 MEQ/L (3.5-5.1); SODIUM (NA) 138 MEQ/L (136-145); TOTAL BILIRUBIN ADULT 1.2 MG/DL (0.2-1.0)
[2016-09-20] MEDS ORDERED: PROPOFOL 200 MG/20 ML AMP IV ONE (09:41)
[2016-09-20] MEDS ORDERED: GLYCOPYRROLATE 0.2 MG/ML VIAL IV ONE (09:41)
--- NOTE | 2016-09-20 09:59 | GIPROC ---
[facility] [address] [facility]. [facility], [address] EGD PROCEDURE REPORT EXAM DATE: 09/20/2016 PATIENT NAME: Juan Ramon Baptiste MR #: [id number] BIRTHDATE: 1960 ATTENDING: Karely Pimentel MD ORDER #: [id number] AIRPORT DUTY MANAGER: Char Salazar STATUS: inpatient INDICATIONS: The patient is a 56 yr old male here for an EGD due to melena PROCEDURE PERFORMED: EGD w/ biopsy MEDICATIONS: None and Per Anesthesia. TOPICAL ANESTHETIC: CONSENT: The patient understands the risks and benefits of the procedure and understands that these risks include, but are not limited to: sedation, allergic reaction, infection, perforation and/or bleeding. Alternative means of evaluation and treatment include, among others: physical exam, x-rays, and/or surgical intervention. The patient elects to proceed with this endoscopic procedure. medical equipment was checked for proper function. Hand hygiene and appropriate measures for infection prevention was taken. After the risks, benefits and alternatives of the procedure were thoroughly explained, Informed consent was verified, confirmed and timeout was successfully executed by the treatment team. The patient was anesthetized with topical anesthesia and the Pentax [id number] endoscope was introduced through the mouth and advanced to the second portion of the duodenum. Retroflexed views revealed no abnormalities The gastroscope was then slowly withdrawn and removed. ESOPHAGUS: There was LA Class C esophagitis noted. A biopsy was performed using cold forceps. Sample sent for histology. STOMACH: There was erythematous moderate gastritis in the gastric antrum. A biopsy was performed using cold forceps. Sample sent for histology. DUODENUM: The duodenal mucosa appeared normal. ADVERSE EVENTS: There were no complications. IMPRESSIONS: 1. There was LA Class C esophagitis noted; biopsy was performed 2. There was erythematous gastritis in the gastric antrum; biopsy was performed 3. Normal duodenal mucosa 4. Retroflexed views revealed no abnormalities RECOMMENDATIONS: 1. Await biopsy results. Biopsy results will not be ready for 7-10 days. If you don't hear from us in two weeks, call our office for biopsy results. 2. Anti-reflux regimen 3. Continue PPI 4. Avoid NSAIDS 5. Follow-up: GI clinic 2 week(s) 6. Ok to ks home per gi PATIENT CONDITION: stable DISPOSITION: Inpatient REPEAT EXAM: Return 1 year EGD pending biopsy results Karely Pimentel MD eSigned: Karely Pimentel MD 09/20/2016 9:58 AM cc: PATIENT NAME: Juan Ramon Baptiste MR#: [id number]
[2016-09-20] MEDS: METOCLOPRAMIDE HCL 10 MG/2 ML VIAL IV PUSH PRN (10:44)
[2016-09-20] MEDS: PANTOPRAZOLE INJ 80 MG in SODIUM CHLORIDE 0.9% INJ 100 ML IV SCH (10:44)
[2016-09-20] MEDS ORDERED: cloNIDine HCL 0.1 MG TAB PO PRN (12:45)
[2016-09-20] MEDS: MORPHINE SULFATE 4 MG/ML INJ IV PUSH PRN ×2 (12:54→17:48)
[2016-09-20] MEDS: ONDANSETRON HCL 4 MG/2 ML VIAL IVP PRN ×2 (12:54→17:48)
[2016-09-20] MEDS: DEXT 5%-NACL 0.45% 1000 ML INJ 1,000 ML IV SCH (13:15)
[2016-09-21 00:15] VITALS: BP 118/82; PULSE 72; RESP 16; TEMP 98.4; O2SAT 97
[2016-09-21 04:40] VITALS: BP 158/98; PULSE 84; RESP 16; TEMP 98.7; O2SAT 98
[2016-09-21] MEDS: ONDANSETRON HCL 4 MG/2 ML VIAL IVP PRN (04:56)
[2016-09-21] MEDS: DEXT 5%-NACL 0.45% 1000 ML INJ 1,000 ML IV SCH (04:57)
[2016-09-21] MEDS: PANTOPRAZOLE INJ 80 MG in SODIUM CHLORIDE 0.9% INJ 100 ML IV SCH (04:58)
[2016-09-21] MEDS: MORPHINE SULFATE 4 MG/ML INJ IV PUSH PRN (05:09)
[2016-09-21] MEDS: INSULIN ASPART SUPPLEMENTAL SCALE SQ SCH ×2 (07:00→11:00)
[2016-09-21] MEDS: SODIUM CHLORIDE 0.9% FLUSH 10 ML FLUSH IV FLUSH SCH (08:21)
[2016-09-21 08:27] VITALS: BP 142/90; PULSE 76; RESP 16; TEMP 98; O2SAT 97
[2016-09-21] MEDS ORDERED: POTASSIUM CHLORIDE 20 MEQ CONTROLLED RELEASE TAB PO ONE ×3 (08:45→15:15)
[2016-09-21] MEDS ORDERED: PANTOPRAZOLE SOD 40 MG DELAYED RELEASE TAB PO SCH (09:00)
[2016-09-21] MEDS ORDERED: SUCRALFATE 1 GM TAB PO SCH (11:00)
[2016-09-21 11:01] VITALS: O2SAT 98
[2016-09-21 11:56] VITALS: BP 127/83; PULSE 60; RESP 16; TEMP 97.9; O2SAT 99
[2016-09-21] MEDS ORDERED: CARA1TAB6 PO ×2 (15:00→16:09)
[2016-09-21] MEDS ORDERED: PANT40TA3 PO ×2 (15:00→16:09)
--- NOTE | 2016-09-21 15:01 | HHI.DS ---
Discharge Summary Admission Date September 19, 2016 at 00:44 Discharge Date: September 21, 2016 Admitting Diagnosis GI Bleed, Hyperglycemia, dehydration (1) Coffee ground emesis ICD Code: K92.0 Diagnosis: Principal Procedures EGD AND COLONOSCOPY Brief History - From Admission History from patient, ER physician to medication, and review of medical records. Patient reported that he came to the hospital because he's been having nausea vomiting which started today. Reports he last vomited about 5 times at least. Also reports of diarrhea which is about 5 times at niece as well. Reports black color stool. Also reports that the vomitus was black in color. ER physician also confirmed that the vomitus in ER was positive for occult blood. Patient denies taking any NSAIDs. He's not on any blood thinners. No fever. Denies any urinary burning or pain on urination. He does report of epigastric pain but stated that this only started after he vomited several times. Patient is a diabetic since age of [age] years old or so. He states that his A1c was 13 previously and currently is at 6. CBC/BMP: 09/20/16 0634 09/21/16 1217 Significant Findings Laboratory Tests Test 09/18/16 09/18/16 09/19/16 09/19/16 22:45 23:05 00:25 02:35 White Blood Count 12.5 TH/MM3 (4.0-11.0) Neutrophils (%) (Auto) 90.6 % (16.0-70.0) Lymphocytes (%) (Auto) 4.9 % (9.0-44.0) Neutrophils # (Auto) 11.3 TH/MM3 (1.8-7.7) Lymphocytes # (Auto) 0.6 TH/MM3 (1.0-4.8) Activated Partial 21.3 SEC Thromboplast Time (24.3-30.1) Fibrinogen 423 mg/dL (181-393) Chloride Level 92 MEQ/L (98-107) Anion Gap 17 MEQ/L (5-15) Creatinine 1.64 MG/DL 1.38 MG/DL (0.60-1.30) (0.60-1.30) Estimat Glomerular Filtration 53 ML/MIN (>89) 64 ML/MIN (>89) Rate Random Glucose 294 MG/DL 247 MG/DL (74-106) (74-106) Calcium Level 10.3 MG/DL (8.5-10.1) Magnesium Level 2.6 MG/DL (1.5-2.5) Total Bilirubin 1.1 MG/DL (0.2-1.0) Aspartate Amino Transf 59 U/L (15-37) (AST/SGOT) Creatine Kinase MB LESS THAN 0.5 NG/ML (0.5-3.6) Troponin I LESS THAN 0.02 NG/ML (0.02-0.05) Total Protein 9.4 GM/DL (6.4-8.2) B-Hydroxybutyrate 1.19 MMOL/L (0.00-0.39) Urine Protein 30 mg/dL (NEG-TRACE) Urine Glucose (UA) 1000 mg/dL (NEG) Urine Ketones 40 mg/dL (NEG) Urine RBC 7 /hpf (0-3) Urine Bacteria RARE /hpf (NONE) Urine Mucus FEW /lpf (OCC) Venous Blood pH 7.55 (7.360-7.400) Venous Blood Partial Pressure 20 mmHg (44-48) CO2 Venous Blood Partial Pressure 49 mmHg (35-40) O2 Venous Blood HCO3 18 mmol/L (22-26) Venous Blood Oxygen Saturation 86 % (70-76) Venous Blood Base Excess -4.4 mmol/L (-2-2) Potassium Level 3.4 MEQ/L (3.5-5.1) Test 09/19/16 09/19/16 09/20/16 09/21/16 05:41 15:37 06:34 12:17 White Blood Count 12.5 TH/MM3 (4.0-11.0) Red Blood Count 4.41 MIL/MM3 4.07 MIL/MM3 (4.50-5.90) (4.50-5.90) Neutrophils (%) (Auto) 87.8 % 70.4 % (16.0-70.0) (16.0-70.0) Lymphocytes (%) (Auto) 6.9 % (9.0-44.0) Neutrophils # (Auto) 11.0 TH/MM3 (1.8-7.7) Lymphocytes # (Auto) 0.9 TH/MM3 (1.0-4.8) Potassium Level 3.3 MEQ/L 3.3 MEQ/L 3.3 MEQ/L (3.5-5.1) (3.5-5.1) (3.5-5.1) Estimat Glomerular Filtration 75 ML/MIN (>89) Rate Random Glucose 226 MG/DL 198 MG/DL (74-106) (74-106) Aspartate Amino Transf 42 U/L (15-37) 72 U/L (15-37) (AST/SGOT) Total Protein 8.9 GM/DL (6.4-8.2) Hematocrit 38.0 % 38.9 % (39.0-51.0) (39.0-51.0) Monocytes (%) (Auto) 9.3 % (0.0-8.0) Total Bilirubin 1.2 MG/DL (0.2-1.0) Imaging Last Impressions Abdomen X-Ray 09/19/16 0000 Signed Impressions: Service Date/Time: Monday, September 19, 2016 01:28 - CONCLUSION: 1. No evidence of obstruction. Tristin Quispe MD Chest X-Ray 09/18/16 2237 Signed Impressions: Service Date/Time: Sunday, September 18, 2016 22:36 - CONCLUSION: No acute cardiopulmonary disease. Patria Neri MD PE at Discharge GENERAL: No acute distress. SKIN: No rashes, ecchymoses or lesions. Cool and dry. HEAD: Atraumatic. Normocephalic. No temporal or scalp tenderness. EYES: No scleral icterus. No injection or drainage. ENT: Nose without bleeding, purulent drainage or septal hematoma. Airway patent. NECK: Trachea midline. No JVD CARDIOVASCULAR: Regular rate and rhythm without murmurs, gallops, or rubs. RESPIRATORY: Clear to auscultation. Breath sounds equal bilaterally. No wheezes , rales, or rhonchi. GASTROINTESTINAL: Abdomen soft, non-tender, nondistended. . No guarding. MUSCULOSKELETAL: Extremities without clubbing, cyanosis, or edema. No calf tenderness. NEUROLOGICAL: Awake and alert. Motor and sensory grossly within normal limits. Normal speech. Hospital Course This is a pleasant 56 y/o male who came to ER with Nausea, vomit, Melenic stools , loose stools, he has DM II, patient seen in his bedroom, no signs of bleeding. 09/21: Seen in his bedroom status post EGD with Diagnosis of LA Class C Esophagitis biopsy taken, erythematous Gastritis in the antrum, biopsy taken, normal duodenal mucosa. okay to discharge home seen his Potassium level decreased will try to replenish given 40 meq at 8:30 am and will give another dose at 10:30 am and follow because continue low was given 40 meq more and will follow by PCP that is [place] and with GI specialist Doctor Karely Pimentel. no complaint by patient. no signs of bleeding and no Nausea, vomit or diarrhea. Assessment and Plan 1. Upper GI bleed, Given IV fluids, on Protonix Drip, will have EGD performed and found LA Class C Esophagitis biopsy taken, erythematous Gastritis in the antrum, biopsy taken, normal duodenal mucosa. okay to discharge Home as per GI specialist will continue PPI and [facility] Karely Pimentel [facility] one week 2. DM II sliding scale. stable will continue Home medicines at discharge 3. Hypokalemia replaced DVT prophylaxiswith SCD. GI prophylaxis on pantoprazole. Discharge Planning Discharge Home today Pt Condition on Discharge: Good Discharge Disposition: Discharge Home Discharge Time: <= 30 minutes Discharge Instructions DIET: Follow Instructions for: Diabetic Diet Activities you can perform: Regular-No Restrictions Jacques Mauro MD September 21, 2016 15:00
--- NOTE | 2016-09-21 15:16 | HHI.PR ---
Subjective Remarks This is a pleasant 56 y/o male who came to ER with Nausea, vomit, Melenic stools , loose stools, he has DM II, patient seen in his bedroom, no signs of bleeding. 09/21: Seen in his bedroom status post EGD with Diagnosis of LA Class C Esophagitis biopsy taken, erythematous Gastritis in the antrum, biopsy taken, normal duodenal mucosa. okay to discharge home seen his Potassium level decreased will try to replenish given 40 meq at 8:30 am and will give another dose at 10:30 am and follow because continue low was given 40 meq more and will follow by PCP that is [place] and with GI specialist Doctor Karely Pimentel. no complaint by patient. no signs of bleeding and no Nausea, vomit or diarrhea. Objective Vital Signs Date Time Temp Pulse Resp B/P Pulse Ox O2 Delivery O2 Flow Rate FiO2 09/21/16 11:56 97.9 60 16 127/83 99 09/21/16 11:01 98 21 09/21/16 08:27 98.0 76 16 142/90 97 09/21/16 04:40 98.7 84 16 158/98 98 09/21/16 00:15 98.4 72 16 118/82 97 09/20/16 20:00 98.1 85 17 128/88 98 09/20/16 17:53 98 21 09/20/16 16:00 98.1 87 18 115/76 98 I/O 09/20/16 09/20/16 09/20/16 09/21/16 09/21/16 09/21/16 07:00 15:00 23:00 07:00 15:00 23:00 Intake Total 726 ml 1020 ml 240 ml 240 ml Output Total 900 ml Balance 726 ml 120 ml 240 ml 240 ml Intake Oral 0 ml 720 ml 240 ml 240 ml IV Total 726 ml Other 300 ml Output Urine Total 900 ml # Voids 1 1 1 # Bowel Movements 0 0 0 Result Diagram: 09/20/16 0634 09/21/16 1217 Imaging Last Impressions Abdomen X-Ray 09/19/16 0000 Signed Impressions: Service Date/Time: Monday, September 19, 2016 01:28 - CONCLUSION: 1. No evidence of obstruction. Tristin Quispe MD Chest X-Ray 09/18/16 2237 Signed Impressions: Service Date/Time: Sunday, September 18, 2016 22:36 - CONCLUSION: No acute cardiopulmonary disease. Patria Neri MD Procedures EGD Other Results Laboratory Tests Test 09/18/16 09/18/16 09/19/16 09/19/16 22:45 23:05 00:25 02:35 Activated Partial 21.3 SEC Thromboplast Time Fibrinogen 423 mg/dL Magnesium Level 2.6 MG/DL Total Creatine Kinase 284 U/L Creatine Kinase MB LESS THAN 0.5 NG/ML Troponin I LESS THAN 0.02 NG/ML Lipase 109 U/L B-Hydroxybutyrate 1.19 MMOL/L Urine Color YELLOW Urine Turbidity CLEAR Urine pH 8.0 Urine Specific [place] 1.020 Urine Protein 30 mg/dL Urine Glucose (UA) 1000 mg/dL Urine Ketones 40 mg/dL Urine Occult Blood NEG Urine Nitrite NEG Urine Bilirubin NEG Urine Urobilinogen LESS THAN 2.0 MG/DL Urine Leukocyte Esterase NEG Urine RBC 7 /hpf Urine WBC 1 /hpf Urine Squamous Epithelial <1 /hpf Cells Urine Bacteria RARE /hpf Urine Mucus FEW /lpf Microscopic Urinalysis Comment CULT NOT INDICATED Blood Gas Puncture Site FROM IV LOCK Blood Gas Patient Temperature 98.6 Venous Blood pH 7.55 Venous Blood Partial Pressure 20 mmHg CO2 Venous Blood Partial Pressure 49 mmHg O2 Venous Blood HCO3 18 mmol/L Venous Blood Oxygen Saturation 86 % Venous Blood Oxygen Content 14.0 Vol % Venous Blood Base Excess -4.4 mmol/L Oxygen Delivery Device ROOM AIR Blood Gas Inspired Oxygen 21 % Prothrombin Time 11.1 SEC Prothromb Time International 1.0 RATIO Ratio Blood Type A POSITIVE Antibody Screen NEGATIVE Blood Bank Comment Test 09/20/16 09/21/16 06:34 12:17 White Blood Count 8.7 TH/MM3 Red Blood Count 4.07 MIL/MM3 Hemoglobin 13.1 GM/DL Hematocrit 38.9 % Mean Corpuscular Volume 95.6 FL Mean Corpuscular Hemoglobin 32.3 PG Mean Corpuscular Hemoglobin 33.8 % Concent Red Cell Distribution Width 13.7 % Platelet Count 232 TH/MM3 Mean Platelet Volume 7.9 FL Neutrophils (%) (Auto) 70.4 % Lymphocytes (%) (Auto) 19.8 % Monocytes (%) (Auto) 9.3 % Eosinophils (%) (Auto) 0.2 % Basophils (%) (Auto) 0.3 % Neutrophils # (Auto) 6.2 TH/MM3 Lymphocytes # (Auto) 1.7 TH/MM3 Monocytes # (Auto) 0.8 TH/MM3 Eosinophils # (Auto) 0.0 TH/MM3 Basophils # (Auto) 0.0 TH/MM3 CBC Comment DIFF FINAL Differential Comment Sodium Level 138 MEQ/L Chloride Level 104 MEQ/L Carbon Dioxide Level 27.0 MEQ/L Anion Gap 7 MEQ/L Blood Urea Nitrogen 10 MG/DL Creatinine 0.99 MG/DL Estimat Glomerular Filtration 94 ML/MIN Rate Random Glucose 198 MG/DL Calcium Level 8.6 MG/DL Total Bilirubin 1.2 MG/DL Aspartate Amino Transf 72 U/L (AST/SGOT) Alanine Aminotransferase 42 U/L (ALT/SGPT) Alkaline Phosphatase 89 U/L Total Protein 7.7 GM/DL Albumin 3.6 GM/DL Potassium Level 3.3 MEQ/L Objective Remarks GENERAL: No acute distress. SKIN: No rashes, ecchymoses or lesions. Cool and dry. HEAD: Atraumatic. Normocephalic. No temporal or scalp tenderness. EYES: No scleral icterus. No injection or drainage. ENT: Nose without bleeding, purulent drainage or septal hematoma. Airway patent. NECK: Trachea midline. No JVD CARDIOVASCULAR: Regular rate and rhythm without murmurs, gallops, or rubs. RESPIRATORY: Clear to auscultation. Breath sounds equal bilaterally. No wheezes , rales, or rhonchi. GASTROINTESTINAL: Abdomen soft, non-tender, nondistended. . No guarding. MUSCULOSKELETAL: Extremities without clubbing, cyanosis, or edema. No calf tenderness. NEUROLOGICAL: Awake and alert. Motor and sensory grossly within normal limits. Normal speech. Medications and IVs Current Medications Medications (Trade) Dose Ordered Sig/[place] Route Start Time Stop Time Status Last Admin (NS Flush) 2 ml UNSCH PRN IV FLUSH 09/19/16 01:00 (NS Flush) 2 ml BID IV FLUSH 09/19/16 09:00 09/20/16 21:47 (Zofran Inj) 4 mg Q6H PRN IVP 09/19/16 01:00 09/21/16 04:56 (Narcan Inj) 0.4 mg UNSCH PRN IV 09/19/16 01:00 (D50w (Vial) Inj) 25 ml UNSCH PRN IV PUSH 09/19/16 01:30 (Glucagon Inj) 1 mg UNSCH PRN OTHER 09/19/16 01:30 (Reglan Inj) 10 mg Q8H PRN IV PUSH 09/19/16 19:45 09/20/16 10:44 Morphine Sulfate 2 mg 2 mg Q3H PRN IV PUSH 09/19/16 19:45 09/21/16 05:09 Lactated Ringer's 1,000 ml @ 30 mls/hr Q24H PRN IV 09/20/16 05:15 09/23/16 05:14 (NS 500 ml Inj) 500 ml @ 30 mls/hr [id number] PRN IV 09/20/16 05:15 09/23/16 05:14 (Catapres) 0.1 mg Q6H PRN PO 09/20/16 12:45 09/20/16 12:54 (Protonix) 40 mg DAILY PO 09/21/16 09:00 09/21/16 10:59 (Carafate) 1 gm ACHS PO 09/21/16 11:00 09/21/16 10:59 (KCl) 40 meq ONCE ONCE PO 09/21/16 15:15 09/21/16 15:16 UNV A/P Assessment and Plan 1. Upper GI bleed, Given IV fluids, on Protonix Drip, will have EGD performed and found LA Class C Esophagitis biopsy taken, erythematous Gastritis in the antrum, biopsy taken, normal duodenal mucosa. okay to discharge Home as per GI specialist will continue PPI and [facility] one week 2. DM II sliding scale. stable will continue Home medicines at discharge 3. Hypokalemia replaced DVT prophylaxiswith SCD. GI prophylaxis on pantoprazole. Discharge Planning Discharge Home today Jacques aMuro MD September 21, 2016 15:16
== END 2016-09-21 15:52 | disposition home or self-care (01) | DRG 378 ==
LOC: NEPE 22:10 → NEDA 09-19 00:44 → N06A 09-19 03:48
PROVIDERS: ADMIT Internal Medicine; ATTEND Internal Medicine
PROC: 0DB68ZX Excision of Stomach, Via Natural or Artificial Opening Endoscopic, Diagnostic (ICD-10-PCS; 2016-09-20)
PROC: 0DB58ZX Excision of Esophagus, Via Natural or Artificial Opening Endoscopic, Diagnostic (ICD-10-PCS; principal; 2016-09-20 09:27)
DX: K92.1 Melena (principal); E87.2 Acidosis; N17.9 Acute kidney failure, unspecified; E11.65 Type 2 diabetes mellitus with hyperglycemia; E87.6 Hypokalemia; E86.0 Dehydration; K21.0 Gastro-esophageal reflux disease with esophagitis; K29.70 Gastritis, unspecified, without bleeding; Z79.84 Long term (current) use of oral hypoglycemic drugs
CPT/HCPCS: 71010; 74000; 80048; 80053; 81001; 82010; 82550; 82552; 82805; 82948; 83690; 83735; 84132; 84484; 85014; 85018; 85025; 85384; 85610; 85730; 86850; 86900; 86901; 88305; 88312; 93005; 96361; 96374; 96375; C9113; J1815; J2270; J2405; J2765; J3230; J3480; J7030

== ENCOUNTER 2017-01-07 00:56 | Inpatient (IN) | payer OTHER, MEDICARE ==
[2017-01-07] VITALS (7 sets, daily range): BP systolic 93–139; BP diastolic 53–89; PULSE 98–119; RESP 16–20; TEMP 97.4–99.6; O2SAT 92–100
[~2017-01-07] VITALS: Ht 182.9 cm; Wt 86.2 kg
[~2017-01-07 00:56] MED LIST: CARA1TAB6 PO; CYAN1TAB24; GLIP5TAB8 PO; METF500T PO; PANT40TA3 PO
--- NOTE | 2017-01-07 01:14 | PD ---
HPI . "I have had the hiccups for 6 days straight" Chief Complaint: Abdominal Pain Time Seen by Provider: 01:04 Travel History International Travel<30 days: No Contact w/Intl Traveler<30days: No Traveled to known affect area: No History of Present Illness HPI This is a 56 year-old male who presents to the [place] emergency room for 6 days of hiccups. He states that he also has epigastric pain and a sore throat from throwing up and hiccuping, he tried Gas-X and Tums without resolution of his symptoms. He is currently vomiting small amounts of brown/black fluid. His past medical history includes diabetes and was seen here on 09/19 with upper GI bleed and was diagnosed with gastritis and esophagitis. [facility] and was [facility] treated with [facility]. He states he has not been for follow up or taking any GI medications since his last visit 1 month ago. Apparently at his last visit he was told to stop all GI medications. He admits to black and tarry stools, and states he was supposed to provide a stool sample to his doctor but has not had a bowel movement in 3 days. The patient is a poor historian. PFSH Past Medical History Cancer: No Cardiovascular Problems: No Chemotherapy: No Diabetes: Yes (NEUROPATHY) Patient Takes Glucophage: Yes (4 days ago) Diminished Hearing: No Endocrine: Yes Genitourinary: No Immune Disorder: No Musculoskeletal: No Neurologic: No Reproductive: No Respiratory: No Radiation Therapy: No Sickle Cell Disease: No Tetanus Vaccination: Unknown Influenza Vaccination: No Past Surgical History Surgical History: No Previous Surgery Abdominal Surgery: No Cardiac Surgery: No Ear Surgery: No Endocrine Surgery: No Eye Surgery: No Genitourinary Surgery: No Gynecologic Surgery: No Oral Surgery: No Thoracic Surgery: No Social History Alcohol Use: Yes (DAILY) Tobacco Use: No Substance Use: No Allergies-Medications (Allergen,Severity, Reaction): Coded Allergies: No Known Allergies (Unverified , 09/18/16) Reported Meds & Prescriptions Reported Meds & Active Scripts Active Reported Glipizide 5 Mg Tab 5 Mg PO BIDAC Take 30 minutes before a meal Metformin (Metformin HCl) 500 Mg Tab 500 Mg PO BIDPC With meals Review of Systems Except as stated in HPI: all other systems reviewed are Neg Gastrointestinal: Positive: Nausea, Vomiting, Abdominal Pain, Hematemesis, Constipation, No: Diarrhea Physical Exam Narrative GENERAL: The patient was seated on the exam bed and clutching a waste bag. He was hiccuping and asking for relief. He was otherwise alert and oriented x3. SKIN: Warm and dry. HEAD: Atraumatic. Normocephalic. EYES: Pupils equal and round. Yellowed sclera. ENT: No nasal bleeding or discharge. Mucous membranes pink and moist. NECK: Trachea midline. CARDIOVASCULAR: Regular rate and rhythm. No murmurs or extra beats. RESPIRATORY: No accessory muscle use. GASTROINTESTINAL: Abdomen soft, non-tender, nondistended. Rectal exam revealed no stool in the rectal vault, prostate was enlarged but uniform. MUSCULOSKELETAL: No obvious deformities. No edema. NEUROLOGICAL: Awake and alert. No obvious cranial nerve deficits. Motor grossly within normal limits. Normal speech. PSYCHIATRIC: Appropriate mood and affect; insight and judgment normal. Data Data Last Documented VS Vital Signs Date Time Temp Pulse Resp B/P Pulse Ox O2 Delivery O2 Flow Rate FiO2 01/07/17 03:21 119 18 129/75 98 Room Air 01/07/17 00:59 99.1 Orders Chlorpromazine (Thorazine) (01/07/17 01:15) Ondansetron Inj (Zofran Inj) (01/07/17 01:15) Chlorpromazine Inj (Thorazine Inj) (01/07/17 01:30) Pantoprazole Inj (Protonix Inj) (01/07/17 01:30) Complete Blood Count With Diff (01/07/17 01:22) Comprehensive Metabolic Panel (01/07/17 01:22) Chest, Single Ap (01/07/17 ) Sodium Chlor 0.9% 1000 Ml Inj (Ns 1000 M (01/07/17 02:45) Sodium Chlor 0.9% 1000 Ml Inj (Ns 1000 M (01/07/17 02:45) Consult Gastroenterology (01/07/17 ) Pantoprazole Inj (Protonix Inj) (01/07/17 03:45) Pantoprazole Inj (Protonix Inj) (01/07/17 03:45) Admit Order (Ed Use Only) (01/07/17 03:38) Labs Laboratory Tests Test 01/07/17 01:50 White Blood Count 20.1 TH/MM3 Red Blood Count 4.94 MIL/MM3 Hemoglobin 16.1 GM/DL Hematocrit 46.7 % Mean Corpuscular Volume 94.5 FL Mean Corpuscular Hemoglobin 32.5 PG Mean Corpuscular Hemoglobin 34.4 % Concent Red Cell Distribution Width 14.6 % Platelet Count 260 TH/MM3 Mean Platelet Volume 8.0 FL Neutrophils (%) (Auto) 86.4 % Lymphocytes (%) (Auto) 7.2 % Monocytes (%) (Auto) 6.4 % Eosinophils (%) (Auto) 0.0 % Basophils (%) (Auto) 0.0 % Neutrophils # (Auto) 17.4 TH/MM3 Lymphocytes # (Auto) 1.5 TH/MM3 Monocytes # (Auto) 1.3 TH/MM3 Eosinophils # (Auto) 0.0 TH/MM3 Basophils # (Auto) 0.0 TH/MM3 CBC Comment DIFF FINAL Differential Comment Sodium Level 136 MEQ/L Potassium Level 4.0 MEQ/L Chloride Level 81 MEQ/L Carbon Dioxide Level 37.5 MEQ/L Anion Gap 18 MEQ/L Blood Urea Nitrogen 38 MG/DL Creatinine 5.36 MG/DL Estimat Glomerular Filtration 13 ML/MIN Rate Random Glucose 240 MG/DL Calcium Level 11.2 MG/DL Total Bilirubin 1.5 MG/DL Aspartate Amino Transf 54 U/L (AST/SGOT) Alanine Aminotransferase 35 U/L (ALT/SGPT) Alkaline Phosphatase 78 U/L Total Protein 9.6 GM/DL Albumin 4.6 GM/DL [facility] Medical Decision Making Medical Screen Exam Complete: Yes Emergency Medical Condition: Yes Medical Record Reviewed: Yes (Admission 09/19 for UGI bleed, diagnosed with gastritis and esophagitis) Differential Diagnosis Persistent hiccups, gastritis, esophagitis, GI bleed Narrative Course This is a 56 year old male with previous history of GI bleed secondary to gastritis and esophagitis who presents with persistent hiccups and vomiting. He has not followed up with his GI in the last month, and has not been taking any GI medications. Vital Signs Date Time Temp Pulse Resp B/P Pulse Ox O2 Delivery O2 Flow Rate FiO2 01/07/17 00:59 99.1 114 18 123/75 100 This patient appears hemodynamically stable. He is being evaluated by a laboratory phlebotomist at the [place] clinic. CBC & BMP Diagram 01/07/17 01:50 The renal failure is a new finding. IV fluids have been ordered. The patient will need to be admitted to the hospital. HemaPrompt Point of Care Internal Pos. & Neg. Controls: Passed Fecal Specimen Occult Blood: Negative Gastric Specimen Occult Blood: Positive Physician Communication Physician Communication Dr. Lakhani Diagnosis Primary Impression: Coffee ground emesis Additional Impressions: Acute renal failure Qualified Code: N17.9 - Acute renal failure, unspecified acute renal failure type Leukocytosis Qualified Code: D72.829 - Leukocytosis, unspecified type Admitting Information Admitting Physician Requests: Admit Condition: Stable Gissel Bautista MD Jan 07, 2017 01:14
[2017-01-07] MEDS ORDERED: chlorproMAZINE HCL 25 MG TAB PO SCH (01:15)
[2017-01-07] MEDS ORDERED: ONDANSETRON HCL 4 MG/2 ML VIAL IV PUSH ONE (01:15)
[2017-01-07] MEDS ORDERED: PANTOPRAZOLE SODIUM 40 MG VIAL IV PUSH ONE (01:30)
[2017-01-07 02:07] LABS: AUTOMATED NEUTROPHIL # 17.4 TH/MM3 (1.8-7.7); HEMATOCRIT 46.7 % (39.0-51.0); HEMO FLAGS DIFF FINAL; LYMPH % 7.2 % (9.0-44.0); LYMPHOCYTE # 1.5 TH/MM3 (1.0-4.8); MEAN CELL VOLUME 94.5 FL (80.0-100.0); MEAN CORPUSCULAR HEMOGLOBIN 32.5 PG (27.0-34.0); MEAN CORPUSCULAR HGB CONC 34.4 % (32.0-36.0); MONO % 6.4 % (0.0-8.0); NEUT % 86.4 % (16.0-70.0); PLATELET COUNT 260 TH/MM3 (150-450); RED BLOOD COUNT 4.94 MIL/MM3 (4.50-5.90); RED CELL DISTRIBUTION WIDTH 14.6 % (11.6-17.2); WHITE BLOOD COUNT 20.1 TH/MM3 (4.0-11.0)
--- NOTE | 2017-01-07 02:17 | RADRPT ---
EXAM DATE/TIME: 01/07/2017 01:42 [facility] COMPARISON: CHEST SINGLE AP, September 18, 2016, 22:36. INDICATIONS : Nausea and vomiting x 3 days MEDICAL HISTORY : Diabetes mellitus type I. SURGICAL HISTORY : None. ENCOUNTER: Initial ACUITY: 3 days PAIN SCORE: 7/10 LOCATION: Bilateral chest FINDINGS: A single view of the chest demonstrates the lungs to be symmetrically aerated without evidence of mas s, infiltrate or effusion. Mild basilar atelectasis. The cardiomediastinal contours are unremarkable. Osseous structures are intact. CONCLUSION: 1. Basilar atelectasis. No effusion. No pneumothorax. Heart size within normal limits. Castro Moctezuma MD on January 07, 2017 at 2:13 Board Certified Radiologist. This report was verified electronically.
[2017-01-07 02:25] LABS: ALKALINE PHOSPHATASE 78 U/L (45-117); TOTAL BILIRUBIN ADULT 1.5 MG/DL (0.2-1.0)
[2017-01-07 02:26] LABS: ALT (GPT) 35 U/L (12-78); ANION GAP 18 MEQ/L (5-15); AST (GOT) 54 U/L (15-37); BICARBONATE 37.5 MEQ/L (21.0-32.0); BLOOD UREA NITROGEN 38 MG/DL (7-18); CHLORIDE 81 MEQ/L (98-107); GLOMERULAR FILTRATION RATE 13 ML/MIN (>89); SODIUM (NA) 136 MEQ/L (136-145)
[2017-01-07] MEDS ORDERED: SODIUM CHLOR 0.9% 1000 ML INJ 1,000 ML IV ONE ×2 (02:45)
[2017-01-07] MEDS ORDERED: PANTOPRAZOLE INJ 80 MG in SODIUM CHLORIDE 0.9% INJ 35 ML IV ONE (03:45)
[2017-01-07] MEDS ORDERED: PANTOPRAZOLE INJ 80 MG in SODIUM CHLORIDE 0.9% INJ 100 ML IV SCH (03:45)
[2017-01-07] MEDS: SODIUM CHLOR 0.9% 1000 ML INJ 1,000 ML IV SCH ×2 (03:58→15:50)
[2017-01-07] MEDS ORDERED: SODIUM CHLORIDE 0.9% FLUSH 10 ML FLUSH IV FLUSH PRN (04:00)
[2017-01-07] MEDS ORDERED: LACTULOSE SYRUP 20 GM/30 ML CUP PO PRN (04:00)
[2017-01-07] MEDS ORDERED: DEXTROSE 50% IN WATER 50 ML VIAL(D50) IV PRN (04:00)
[2017-01-07] MEDS ORDERED: GLUCAGON 1 MG/ML VIAL OTHER PRN (04:00)
[2017-01-07] MEDS ORDERED: SENNOSIDES 8.6 MG TAB PO PRN (04:00)
[2017-01-07] MEDS ORDERED: MAGNESIUM HYDROXIDE SUSP 30 ML CUP PO PRN (04:00)
[2017-01-07] MEDS ORDERED: MORPHINE SULFATE 4 MG/ML INJ IV PRN (04:00)
[2017-01-07] MEDS ORDERED: BISACODYL 10 MG SUPP RECTAL PRN (04:00)
[2017-01-07] MEDS ORDERED: ACETAMINOPHEN 325 MG TAB PO PRN (04:00)
[2017-01-07] MEDS ORDERED: ONDANSETRON HCL 4 MG/2 ML VIAL IVP PRN (04:00)
--- NOTE | 2017-01-07 05:12 | HHI.HP ---
[facility] Admission Diagnosis upper GI bleed, ARF Diagnoses: (1) GI bleed Diagnosis: Principal (2) Intractable nausea and vomiting Diagnosis: Principal (3) VALERIA (acute kidney injury) Diagnosis: Principal (4) DM (diabetes mellitus) Diagnosis: Principal Travel History International Travel<30 Days: No Contact w/Intl Traveler <30 Da: No Traveled to Known Affected Are: No History of Present Illness This is a 56-year-old male with PMH of DM and GERD who presented to the ER with complaints of epigastric pain, nausea, vomiting and persistent hiccups for approx 1wk. States has been taking OTC medications with no relief. Denies fever, chills, diarrhea or sick contacts. Reports vomiting now coffee ground emesis, similar to previous episode of GI Bleed. Previous admit 09/19-09/21/16 for hematemesis, s/p EGD by Dr. Pimentel w/ LA Class C Esophagitis and Gastritis, instructed to continue w/ PPI and Carafate and follow up w/ PCP. States he [facility] and was recently taken off his medications by his PCP approx 1mo ago, he is unsure why. On arrival, BP 123/75, HR 114, O2 sat 100% on RA, Temp 99.1. WBC 20.1, elevated neutrophil count. Creatinine 5.36, previously 0.9905-17. UA pending. Urine Drug Screen pending. CXR with basilar atelectasis. S/p IVF and analgesics/antiemetics in ER w/ some improvement. Started on Protonix gtt, GI Consulted by ER physician. Review of Systems Except as stated in HPI: all other systems reviewed are Neg ROS: 14 point review of systems otherwise negative. Past Family Social History Past Medical History PMH: DM and GERD Past Surgical History PAST SURGICAL HISTORY: None Allergies: Coded Allergies: No Known Allergies (Unverified , 09/18/16) Family History PAST FAMILY HISTORY: Reviewed, positive for DM. Social History PAST SOCIAL HISTORY: Occasional alcohol. Negative for tobacco or drugs. Physical Exam Vital Signs Vital Signs Date Time Temp Pulse Resp B/P Pulse Ox O2 Delivery O2 Flow Rate FiO2 01/07/17 04:18 Room Air 01/07/17 03:21 119 18 129/75 98 Room Air 01/07/17 00:59 99.1 114 18 123/75 100 Physical Exam PE: GENERAL: Middle-aged black male in no acute distress, on arrival with intractable nausea and vomiting, now resolved. HEENT: PERRLA, EOMI. No scleral icterus or conjunctival pallor. No lid lag or facial droop. CARDIOVASCULAR: Regular rate and rhythm. No obvious murmurs to auscultation. No chest tenderness to palpation. RESPIRATORY: No obvious rhonchi or wheezing. Clear to auscultation. Breath sounds equal bilaterally. GASTROINTESTINAL: Abdomen soft, mild epigastric tenderness palpation, nondistended. BS normal. MUSCULOSKELETAL: Extremities without clubbing, cyanosis, or edema. No obvious deformities. NEUROLOGICAL: Awake, alert and oriented x4. No focal neurologic deficits. Moving both upper and lower extremities spontaneously. Laboratory Laboratory Tests Test 01/07/17 01:50 White Blood Count 20.1 Red Blood Count 4.94 Hemoglobin 16.1 Hematocrit 46.7 Mean Corpuscular Volume 94.5 Mean Corpuscular Hemoglobin 32.5 Mean Corpuscular Hemoglobin 34.4 Concent Red Cell Distribution Width 14.6 Platelet Count 260 Mean Platelet Volume 8.0 Neutrophils (%) (Auto) 86.4 Lymphocytes (%) (Auto) 7.2 Monocytes (%) (Auto) 6.4 Eosinophils (%) (Auto) 0.0 Basophils (%) (Auto) 0.0 Neutrophils # (Auto) 17.4 Lymphocytes # (Auto) 1.5 Monocytes # (Auto) 1.3 Eosinophils # (Auto) 0.0 Basophils # (Auto) 0.0 CBC Comment DIFF FINAL Differential Comment Sodium Level 136 Potassium Level 4.0 Chloride Level 81 Carbon Dioxide Level 37.5 Anion Gap 18 Blood Urea Nitrogen 38 Creatinine 5.36 Estimat Glomerular Filtration 13 Rate Random Glucose 240 Calcium Level 11.2 Total Bilirubin 1.5 Aspartate Amino Transf 54 (AST/SGOT) Alanine Aminotransferase 35 (ALT/SGPT) Alkaline Phosphatase 78 Total Protein 9.6 Albumin 4.6 Result Diagram: 01/07/1714901/07/17 0150 Assessment and Plan Problem List: (1) GI bleed ICD Code: K92.2 Status: Acute (2) Intractable nausea and vomiting ICD Code: R11.2 Status: Acute (3) AVLERIA (acute kidney injury) ICD Code: N17.9 Status: Acute (4) DM (diabetes mellitus) ICD Code: E11.9 Status: Acute Assessment and Plan A/P: 1. GI Bleed: Multiple episodes of nausea/vomiting, now with hematemesis, similar presentation 09/19/16 s/p EGD by Dr. Pimentel w/ LA Class C Esophagitis/ Gastritis, instructed to continue w/ PPI/Carafate, however states taken off meds by PCP approx 1mo ago for unknown reasons. Hemodynamically stable. Hgb 16.1. Started on Protonix gtt, GI Consulted by ER physician. Monitor Hgb/Hct 2. Intractable N/V: Improved. s/p analgesics/antiemetics in ER w/ improvement , will continue, IVF for hydration. 3. VALERIA: Creatinine 5.36, previously 0.99 on 09/20/16. U/a, Urine Drug Screen pending. VALERIA likely secondary to intractable nv/dehydration. IVF, Consult Nephrology, Renal US. 4. DM: Sliding scale w/ Accu-Cheks. Hold Metformin 5. DVT Prophylaxis: Pharmacologic contraindication secondary to GI Bleed 6. Social work for d/c planning as needed. 7. Case discussed w/ ER physician at length. Physician Certification 2 Midnight Certification Type: Admission for Inpatient Services Order for Inpatient Services The services are ordered in accordance with Medicare regulations or non- Medicare payer requirements, as applicable. In the case of services not specified as inpatient-only, they are appropriately provided as inpatient services in accordance with the 2-midnight benchmark. Estimated LOS (days): 2 days is the estimated time the patient will need to remain in the hospital, assuming treatment plan goals are met and no additional complications. Post-Hospital Plan: Not yet determined Maryam Lakhani MD Jan 07, 2017 05:12
[2017-01-07 05:20] LABS: BACTERIA, URINE FEW /hpf; BLOOD, URINE MOD (NEG); COMMENT (UR) CULTURE INDICATED; CULTURE IF INDICATED CULTURE INDICATED; GLUCOSE,URINE 150 mg/dL (NEG); HYALINE CAST, URINE 162 /lpf (RARE); KETONE, URINE NEG (NEG); MUCUS URINE FEW /lpf (OCC); NITRITE,URINE NEG (NEG); SQUAMOUS EPITHELIAL CELL URINE 6 /hpf (0-5); TRANSITIONAL EPI CELLS, URINE 1 /hpf; URINE COLOR YELLOW (YELLW/STRAW)
[2017-01-07] MEDS ORDERED: METOPROLOL TARTRATE 25 MG TAB PO ONE (06:15)
[2017-01-07] MEDS: INSULIN ASPART SUPPLEMENTAL SCALE SQ SCH ×4 (06:51→21:00)
--- NOTE | 2017-01-07 08:44 | RADRPT ---
EXAM DATE/TIME: 01/07/2017 07:33 [facility] COMPARISON: No previous studies available for comparison. INDICATIONS : Increased lab values. MEDICAL HISTORY : Diabetes. Alcohol use. Caffeine use. Gastritis. Esophagitis. SURGICAL HISTORY : None. ENCOUNTER: Initial ACUITY: 1 day PAIN SCORE: 3/10 LOCATION: Bilateral flank MEASUREMENTS: RIGHT KIDNEY: 11.7 x 6.2 x 6.3 cm LEFT KIDNEY: 9.9 x 5.4 x 6.8 cm FINDINGS: RIGHT KIDNEY: Renal cortex is normal in thickness and echotexture. No hydronephrosis, stone, or mass. LEFT KIDNEY: Renal cortex is normal in thickness and heterogeneous echotexture. No hydronephrosis, stone, or mass . BLADDER: Within normal limits given the degree of distension. CONCLUSION: 1. No evidence for hydronephrosis. 2. Left kidney slightly heterogeneous of uncertain etiology but could be pyelonephritis in the right clinical setting. Johan Payton MD on January 07, 2017 at 8:40 Board Certified Radiologist. This report was verified electronically.
[2017-01-07] MEDS: SODIUM CHLORIDE 0.9% FLUSH 10 ML FLUSH IV FLUSH SCH ×2 (09:00→22:38)
[2017-01-07] MEDS: DOCUSATE SODIUM 50 MG/SENNA 8.6 MG TAB PO SCH ×2 (09:40→22:37)
--- NOTE | 2017-01-07 11:53 | PD.CONS ---
HPI History of Present Illness This is a 56 year old male with a history of esophagitis, gastritis, who presented to the ER for evaluation of nausea, vomiting, abdominal pain, hematemesis, and hiccuping. He was evaluated in September of 2016 for hematemesis and underwent EGD (09/20/16)----> There was LA Class C esophagitis noted; biopsy was performed 2. There was erythematous gastritis in the gastric antrum; biopsy was performed. 3. Normal duodenal mucosa 4. Retroflexed views revealed no abnormalities. Gastric mucosa with moderate active chronic gastritis and focal intestinal metaplasia, A marlyn stain is positive for a small number of helicobacter-like organisms, distal esophagus biopsy with squamous mucosa with marked parakeratosis and mild chronic inflammation. He reports that he was treated with antibiotics and his symptoms improved, but since being off of the antibiotics, he has been having some burning discomfort in his stomach and esophagus. He is not currently taking any meds for his stomach. He states that he started having nausea and vomiting, with a small amount of hematemesis on Monday. He then had a couple of episodes on and one episode yesterday. He cannot tell me if this is dark or red blood. He complains of a burning sensation in his epigastric area that radiates to his chest. He also reports that he has been having black tarry stools for the past few days. He has not tried any [id number] medications and is not currently on any meds for his stomach. He denies the use of any alcohol or NSAIDs. Of note he does have a history of diabetes, but he cannot tell me if this is well controlled or not. (Dianna Denise) [facility] Past Medical History DM H. Pylori Gastritis Esophagitis Past Surgical History EGD (Dianna Denise) Coded Allergies: No Known Allergies (Unverified , 09/18/16) Medications Allergies Coded Allergies Type Severity Reaction Last Updated Verified No Known Allergies 09/18/16 No Active Scripts Medications Dose Route/Sig Days Date Category Dose Instructions Glipizide 5 Mg Tab 5 Mg PO BIDAC 09/18/16 Reported Take 30 minutes before a meal Metformin (Metformin HCl) 500 Mg Tab 500 Mg PO BIDPC 09/18/16 Reported With meals Family History Noncontributory Social History Denies the use of ETOH, Tobacco, or ETOH use. (Dianna Denisealysia CARDONA) Review of Systems Constitutional: DENIES: Fatigue, Fever Respiratory: DENIES: Cough Cardiovascular: COMPLAINS OF: Chest pain Gastrointestinal: COMPLAINS OF: Abdominal pain, Black stools, Nausea, Vomiting , Heartburn, Hematemesis, DENIES: Bloody stools, Constipation, Diarrhea Musculoskeletal: DENIES: Back pain Integumentary: DENIES: Abnormal pigmentation Hematologic/lymphatic: DENIES: Bruising Neurologic: DENIES: Headache Psychiatric: DENIES: Confusion (Dianna Denisealysia CARDONA) GI Exam Vitals I&O Vital Signs Date Time Temp Pulse Resp B/P Pulse Ox O2 Delivery O2 Flow Rate FiO2 01/07/17 08:00 99.6 98 20 108/73 92 01/07/17 04:55 97.4 110 17 139/89 95 01/07/17 04:18 Room Air 01/07/17 03:21 119 18 129/75 98 Room Air 01/07/17 00:59 99.1 114 18 123/75 100 I/O 01/06/17 01/06/17 01/06/17 01/07/17 01/07/17 01/07/17 07:00 15:00 23:00 07:00 15:00 23:00 Intake Total 60 ml Balance 60 ml Intake Oral 60 ml Imaging Last Impressions Renal Ultrasound 01/07/17 0000 Signed Impressions: Service Date/Time: Saturday, January 07, 2017 07:33 - CONCLUSION: 1. No evidence for hydronephrosis. 2. Left kidney slightly heterogeneous of uncertain etiology but could be pyelonephritis in the right clinical setting. Johan Payton MD Chest X-Ray 01/07/17 0000 Signed Impressions: Service Date/Time: Saturday, January 07, 2017 01:42 - CONCLUSION: 1. Basilar atelectasis. No effusion. No pneumothorax. Heart size within normal limits. Castro Moctezuma MD Laboratory Test 01/07/17 01/07/17 01:50 04:20 White Blood Count 20.1 TH/MM3 Red Blood Count 4.94 MIL/MM3 Hemoglobin 16.1 GM/DL Hematocrit 46.7 % Mean Corpuscular Volume 94.5 FL Mean Corpuscular Hemoglobin 32.5 PG Mean Corpuscular Hemoglobin 34.4 % Concent Red Cell Distribution Width 14.6 % Platelet Count 260 TH/MM3 Mean Platelet Volume 8.0 FL Neutrophils (%) (Auto) 86.4 % Lymphocytes (%) (Auto) 7.2 % Monocytes (%) (Auto) 6.4 % Eosinophils (%) (Auto) 0.0 % Basophils (%) (Auto) 0.0 % Neutrophils # (Auto) 17.4 TH/MM3 Lymphocytes # (Auto) 1.5 TH/MM3 Monocytes # (Auto) 1.3 TH/MM3 Eosinophils # (Auto) 0.0 TH/MM3 Basophils # (Auto) 0.0 TH/MM3 CBC Comment DIFF FINAL Differential Comment Sodium Level 136 MEQ/L Potassium Level 4.0 MEQ/L Chloride Level 81 MEQ/L Carbon Dioxide Level 37.5 MEQ/L Anion Gap 18 MEQ/L Blood Urea Nitrogen 38 MG/DL Creatinine 5.36 MG/DL Estimat Glomerular Filtration 13 ML/MIN Rate Random Glucose 240 MG/DL Calcium Level 11.2 MG/DL Total Bilirubin 1.5 MG/DL Aspartate Amino Transf 54 U/L (AST/SGOT) Alanine Aminotransferase 35 U/L (ALT/SGPT) Alkaline Phosphatase 78 U/L Total Protein 9.6 GM/DL Albumin 4.6 GM/DL Urine Color YELLOW Urine Turbidity HAZY Urine pH 6.0 Urine Specific [place] 1.014 Urine Protein 100 mg/dL Urine Glucose (UA) 150 mg/dL Urine Ketones NEG mg/dL Urine Occult Blood MOD Urine Nitrite NEG Urine Bilirubin NEG Urine Urobilinogen LESS THAN 2.0 MG/DL Urine Leukocyte Esterase NEG Urine RBC 11 /hpf Urine WBC 13 /hpf Urine Squamous Epithelial 6 /hpf Cells Urine Transitional Epithelial 1 /hpf Cells Urine Amorphous Sediment RARE Urine Bacteria FEW /hpf Urine Hyaline Casts 162 /lpf Urine Mucus FEW /lpf Microscopic Urinalysis Comment CULTURE INDICATED Urine Opiates Screen NEG Urine Barbiturates Screen NEG Urine Amphetamines Screen NEG Urine Benzodiazepines Screen NEG Urine Cocaine Screen NEG Urine Cannabinoids Screen NEG Date/Time Procedure Status Source Growth 01/07/17 04:20 Urine Culture Received Urine Clean Catch Pending Physical Examination HEENT: Normocephalic; atraumatic; no jaundice. CHEST: CTA CARDIAC: RRR ABDOMEN: Soft, nondistended, mild epigastric tenderness; no hepatosplenomegaly ; bowel sounds are present in all four quadrants. EXTREMITIES: No clubbing, cyanosis, or edema. SKIN: Normal; no rash; no jaundice. CAMPAIGN COORDINATOR: No focal deficits; alert and oriented times three. (Dianna Denise) Assessment and Plan Plan ASSESSMENT: - GIB, Hematemesis. Pt was admitted for the same in September and underwent with EGD (09/20/16)----> There was LA Class C esophagitis noted; biopsy was performed 2. There was erythematous gastritis in the gastric antrum; biopsy was performed. 3. Normal duodenal mucosa 4. Retroflexed views revealed no abnormalities. Gastric mucosa with moderate active chronic gastritis and focal intestinal metaplasia, A marlyn stain is positive for a small number of helicobacter-like organisms, distal esophagus biopsy with squamous mucosa with marked parakeratosis and mild chronic inflammation. He reports that he was treated with antibiotics and his symptoms improved, but since being off of the antibiotics, he has been having some burning discomfort in his stomach and esophagus. HH is stable. Protonix gtt, change to BID dosing. Add carafate. Monitor HH - Intractable N/V, Epigastric pain. Pt also with hx of dm and intractable hiccups. Will add reglan and reduced dose secondary to impaired renal function. Check Stool for H. Pylori Ag- as he reports that his symptoms improved while on abx , but came back after he completed his antibiotics. GES. - Hiccups. Will check GES. Reglan at reduced risk. - Mild elevation of LFTs. T. Bili 1.5, AST 54, ALT 35, Alk Phosph 78. - VALERIA. Creat was normal on 09/20, now 5.36. Has had intractable nausea/vomiting , likely related to dehydration. IVF. - DM. Per attending. PLAN: - Clear liquids - GES - Stool for H. Pylori Ag - D/C Protonix Gtt - Protonix 40mg IV BID - Add Carafate - Add Reglan at 5mg IV q8h - CBC, CMP in am - Consider further imaging of liver/liver workup if lfts remain elevated - Possible EGD on Monday if symptoms persist - Pt seen and examined by Dr. Ferrara and myself and this note is written on his behalf (Dianna Denise) Physician Comments Seen and examined, plan as above, will re-assess the condition after correction of the uremia, EGD if symptoms persists or significant drop in HH. Will follow up with you. (Lisa Ferrara MD) Dianna Denise Jan 07, 2017 11:53 Lisa Ferrara MD Jan 07, 2017 11:59
[2017-01-07] MEDS: METOCLOPRAMIDE HCL 10 MG/2 ML VIAL IV PUSH SCH ×2 (15:44→22:38)
[2017-01-07] MEDS: PANTOPRAZOLE SODIUM 40 MG VIAL IV PUSH SCH (15:45)
[2017-01-07] MEDS: SUCRALFATE 1 GM/10 ML CUP PO SCH ×2 (15:45→22:37)
--- NOTE | 2017-01-07 19:32 | MB ---
cc: ANTONY RODRIGUEZ MD DATE OF CONSULTATION 01/07/17 REASON FOR CONSULTATION Acute renal failure management. HISTORY OF PRESENT ILLNESS This is a 56-year-old male with history of diabetes as well as gastroesophageal reflux disease. The patient had a previous presentation with gastritis in September when he had an upper endoscopy and was found to have esophagitis and had gastritis as well as H. Pylori. The patient had been on PPIs and Carafate which were stopped approximately 1 month prior to this admission. The patient reported having ongoing hiccups as well as epigastric and abdominal pains. The patient reported having ongoing nausea and vomiting as well with poor p.o. intake. This persisted for quite some time until he came into the emergency room for evaluation. Here the patient was found to have significant renal failure. His creatinine upon presentation here was 5.3. His previous creatinine was 0.99 in September of this year. The patient further progressed with ongoing nausea and vomiting and as well developed hematemesis and he was admitted with the primary team. GI was consulted and the patient was started on PPI drip as well as Carafate. Plan is for a possible EGD early this week as he further stabilizes. The patient's hemoglobin has otherwise been stable at 16 from initial labs. The patient presented with symptoms of volume depletion and was started with IV fluids. He currently is on normal saline at 100 cc/hour at this time. He apparently has a history of diabetes and had been on metformin at home and this was held as well. At this point the patient is resting in bed. He reports having ongoing weakness and fatigue, however, was feeling somewhat better since admission here. Nephrology was consulted for further evaluation. REVIEW OF SYSTEMS The patient reports having nausea and vomiting as well as poor p.o. intake with difficulty swallowing and poor fluid intake as well as hiccups. No fevers, chills, no diarrhea. No chest pains. No dizziness. No dyspnea. No loss of consciousness, otherwise review of systems negative. PAST FAMILY HISTORY INCLUDES Diabetes and GERD. PAST SURGICAL HISTORY Includes EGD. ALLERGIES NO KNOWN DRUG ALLERGIES. FAMILY HISTORY Diabetes. SOCIAL HISTORY Occasional alcohol. MEDICAL HISTORY Includes diabetes and GERD for the patient otherwise. PHYSICAL EXAMINATION VITAL SIGNS: At time of evaluation temperature 98.8, pulse 103, respiratory rate 20, blood pressure 93/53, pulse ox 98% on room air. GENERAL: Awake, alert, oriented, lethargic, no apparent distress. HEENT: Neck soft supple. CARDIAC: Regular rate and rhythm. PULMONARY: Lungs clear to auscultation. ABDOMEN: Soft, mild tenderness. EXTREMITIES: No edema. LABORATORY FINDINGS UA with 100 protein, 150 glucose and 162 hyaline casts. White count 20.1, hemoglobin 16.1, hematocrit 46.7 with platelet count 260, sodium 136, potassium 4, chloride 81, bicarb 37.5, BUN 38, creatinine 5.3, glucose 240. Tox screen negative. ASSESSMENT/PLAN PROBLEM #1 Acute kidney injury: The patient had a normal creatinine of 0.99 in September of this year. At this time he presents with a creatinine of 5, has an extensive history of poor p.o. intake, nausea, vomiting and volume depletion. Clinically he appears volume depleted at this time. He has acute kidney injury at this point apparently secondary to volume depletion. At this point, agree with IV fluids and the patient continues with 100 cc of normal saline per hour. His urinalysis further supports volume depletion with greater than 160 hyaline casts seen. At this point I suspect his renal function should improve given apparently normal renal function in September. Continue with aggressive IV fluid and continue follow up labs and urine output. I have instructed the nurses to monitor strict Is and Os so we can further assess urine output. Renal ultrasound was otherwise unremarkable, some questionable heterogenicity of the left kidney was seen, however clinically this does not correlate to any significant issues. Continue to monitor urine output and continue to monitor at this time. PROBLEM #2 GI bleed: The patient presented with nausea and vomiting which progressed to hematemesis. He has a history of H. Pylori as well as gastritis and esophagitis in the past. At this point he continues on a PPI and Carafate. Continue to follow with GI service. PROBLEM #3 Hiccups: The patient is followed with GI. Reglan has been started. Continue to monitor. PROBLEM #4 Diabetes: The patient had been on metformin in the past. Continue to hold this. He is on insulin sliding scale. Continue monitor for improvement. Antony Rodriguez MD DVP/EO /5:59 PM /7:15 PM KAVITHA
[2017-01-07] MEDS: MORPHINE SULFATE 4 MG/ML INJ IV PRN (22:46)
[2017-01-08] MEDS: PANTOPRAZOLE SODIUM 40 MG VIAL IV PUSH SCH ×2 (00:19→12:05)
[2017-01-08 00:27] VITALS: BP 135/86; PULSE 105; RESP 18; TEMP 98.3; O2SAT 95
[2017-01-08] MEDS: SODIUM CHLOR 0.9% 1000 ML INJ 1,000 ML IV SCH ×3 (01:24→19:58)
[2017-01-08 02:22] LABS: AUTOMATED NEUTROPHIL # 7.9 TH/MM3 (1.8-7.7); BASOPHIL % 0.2 % (0.0-2.0); EOSINOPHIL % 0.2 % (0.0-4.0); HEMATOCRIT 37.9 % (39.0-51.0); HEMO FLAGS DIFF FINAL; LYMPH % 15.7 % (9.0-44.0); LYMPHOCYTE # 1.6 TH/MM3 (1.0-4.8); MEAN CELL VOLUME 94.9 FL (80.0-100.0); MEAN CORPUSCULAR HEMOGLOBIN 32.8 PG (27.0-34.0); MEAN CORPUSCULAR HGB CONC 34.6 % (32.0-36.0); MONO % 8.3 % (0.0-8.0); NEUT % 75.6 % (16.0-70.0); PLATELET COUNT 177 TH/MM3 (150-450); RED CELL DISTRIBUTION WIDTH 14.5 % (11.6-17.2); WHITE BLOOD COUNT 10.4 TH/MM3 (4.0-11.0)
[2017-01-08 02:43] LABS: ALKALINE PHOSPHATASE 60 U/L (45-117); ALT (GPT) 31 U/L (12-78); ANION GAP 8 MEQ/L (5-15); AST (GOT) 60 U/L (15-37); BICARBONATE 35.7 MEQ/L (21.0-32.0); BLOOD UREA NITROGEN 28 MG/DL (7-18); CHLORIDE 99 MEQ/L (98-107); GLOMERULAR FILTRATION RATE 56 ML/MIN (>89); SODIUM (NA) 143 MEQ/L (136-145); TOTAL BILIRUBIN ADULT 1.4 MG/DL (0.2-1.0)
[2017-01-08 02:50] LABS: POTASSIUM 2.5 MEQ/L (3.5-5.1)
[2017-01-08] MEDS ORDERED: POTASSIUM CHLOR 20 MEQ PREMIX 100 ML IV ONE (03:45)
[2017-01-08] MEDS: POTASSIUM CHLORIDE 20 MEQ CONTROLLED RELEASE TAB PO ONE ×2 (04:30→05:20)
[2017-01-08] MEDS: MORPHINE SULFATE 4 MG/ML INJ IV PRN ×2 (04:48→20:22)
[2017-01-08] MEDS: INSULIN ASPART SUPPLEMENTAL SCALE SQ SCH ×4 (07:00→20:06)
[2017-01-08] MEDS: SUCRALFATE 1 GM/10 ML CUP PO SCH ×4 (07:06→20:06)
[2017-01-08] MEDS: METOCLOPRAMIDE HCL 10 MG/2 ML VIAL IV PUSH SCH ×3 (07:06→22:38)
[2017-01-08 07:51] VITALS: BP 160/104; PULSE 96; RESP 17; TEMP 97.9; O2SAT 96
[2017-01-08 08:00] VITALS: BP 160/104; PULSE 96; RESP 17; TEMP 97.9; O2SAT 96
[2017-01-08] MEDS ORDERED: POTASSIUM CHLORIDE 10 MEQ CONTROLLED RELEASE TAB PO ONE ×2 (08:00→17:00)
--- NOTE | 2017-01-08 11:52 | RADRPT ---
EXAM DATE/TIME: 01/08/2017 08:08 [place] COMPARISON: No previous studies available for comparison. INDICATIONS : Increased lab values. MEDICAL HISTORY : Diabetes. Alcohol use. Caffeine use. Gastritis. Esophagitis. SURGICAL HISTORY : None. ENCOUNTER: Initial ACUITY: 1 day PAIN SCORE: 0/10 LOCATION: Bilateral upper quadrant MEASUREMENTS: LIVER: 13.9 cm length COMMON DUCT: Non-visualized RIGHT KIDNEY: 11.8 x 5.4. x 5.2 cm SPLEEN: 7.6 cm length FINDINGS: LIVER: Diffuse echogenic without focal lesion or ductal dilatation. Hepatopedal flow main portal vein. COMMON DUCT: No intraluminal mass or stone visualized. GALLBLADDER: Contains no stones, demonstrates no wall thickening or pericholecystic fluid. PANCREAS: Not seen due to overlying bowel gas. RIGHT KIDNEY: No hydronephrosis, stone or mass. SPLEEN: No focal lesion. CONCLUSION: 1. Echogenic liver likely moderate hepatic steatosis. 2. No evidence for cholelithiasis. 3. Nonvisualization of the pancreas. Johan Payton MD on January 08, 2017 at 10:29 Board Certified Radiologist. This report was verified electronically.
[2017-01-08 12:00] VITALS: BP 157/104; PULSE 108; RESP 18; TEMP 98.4; O2SAT 95
[2017-01-08] MEDS: SODIUM CHLORIDE 0.9% FLUSH 10 ML FLUSH IV FLUSH SCH ×2 (12:05→20:05)
[2017-01-08] MEDS: POLYETHYLENE GLYCOL 17 GM PKG PO SCH (12:05)
[2017-01-08] MEDS: DOCUSATE SODIUM 50 MG/SENNA 8.6 MG TAB PO SCH ×3 (12:05→20:07)
[2017-01-08 16:00] VITALS: BP 142/98; PULSE 109; RESP 16; TEMP 97.8; O2SAT 96
--- NOTE | 2017-01-08 16:41 | HHI.PR ---
Subjective Remarks Follow up on patient with GIB, intractable N/V and VALERIA. Patient seen and examined today. Patient not a very good historian. He will mostly give only head nods for responses. States he is the same. Denies any nausea or vomiting. No change in abdominal pain. Denies any fever or chills. Denies any chest pain or shortness of breath. Objective Vitals Vital Signs Date Time Temp Pulse Resp B/P (MAP) Pulse Ox O2 Delivery O2 Flow Rate FiO2 01/08/17 12:00 98.4 108 18 157/104 (121) 95 01/08/17 08:00 97.9 96 17 160/104 (122) 96 01/08/17 07:51 97.9 96 17 160/104 (122) 96 01/08/17 00:27 98.3 105 18 135/86 (102) 95 01/07/17 20:43 98.4 103 16 116/84 (95) 93 I/O 01/07/17 01/07/17 01/07/17 01/08/17 01/08/17 01/08/17 07:00 15:00 23:00 07:00 15:00 23:00 Intake Total 60 ml 360 ml Output Total 500 ml 550 ml Balance 60 ml -140 ml -550 ml Intake Oral 60 ml 360 ml Output Urine Total 500 ml 550 ml # Bowel Movements 0 Result Diagram: 01/08/17 0058 01/08/17 1144 Imaging Last Impressions Renal Ultrasound 01/07/17 0000 Signed Impressions: Service Date/Time: Saturday, January 07, 2017 07:33 - CONCLUSION: 1. No evidence for hydronephrosis. 2. Left kidney slightly heterogeneous of uncertain etiology but could be pyelonephritis in the right clinical setting. Johan Payton MD Chest X-Ray 01/07/17 0000 Signed Impressions: Service Date/Time: Saturday, January 07, 2017 01:42 - CONCLUSION: 1. Basilar atelectasis. No effusion. No pneumothorax. Heart size within normal limits. Castro Moctezuma MD Objective Remarks GENERAL: Well-nourished, well-developed patient in NAD. Awake and alert. Appears comfortable. SKIN: Warm and dry. No rash. HEAD: Normocephalic. Atraumatic. EYES: Pupils equal and round. No scleral icterus. No injection or drainage. ENT: No nasal bleeding or discharge. Mucous membranes pink and moist. NECK: Supple. Trachea midline. CARDIOVASCULAR: Regular rate and rhythm. S1, S2 noted. No murmur appreciated. RESPIRATORY: No accessory muscle use. Clear to auscultation. Breath sounds equal bilaterally. GASTROINTESTINAL: Abdomen soft, non-tender, nondistended. Normoactive bowel sounds x4. MUSCULOSKELETAL: No obvious deformities. Extremities without clubbing, cyanosis , or edema. NEUROLOGICAL: Awake and alert. Able to move all extremities. Normal speech. PSYCHIATRIC: Flat affect. Not talkative. Medications and IVs Current Medications Medications (Trade) Dose Ordered Sig/[place] Route Start Time Stop Time Status Last Admin (D50w (Vial) Inj) 50 ml UNSCH PRN IV 01/07/17 04:00 (Glucagon Inj) 1 mg UNSCH PRN OTHER 01/07/17 04:00 (NovoLOG SUPPLEMENTAL SCALE) 1 ACHS SLIDING SCALE SQ 01/07/17 07:00 01/07/17 06:51 Sodium Chloride 1,000 ml @ 100 mls/hr Q10H IV 01/07/17 03:58 01/08/17 12:05 (NS Flush) 2 ml UNSCH PRN IV FLUSH 01/07/17 04:00 (NS Flush) 2 ml BID IV FLUSH 01/07/17 09:00 01/08/17 12:05 (Zofran Inj) 4 mg Q6H PRN IVP 01/07/17 04:00 (Tylenol) 650 mg Q6H PRN PO 01/07/17 04:00 (Morphine Inj) 1 mg Q3H PRN IV 01/07/17 04:00 (Morphine Inj) 2 mg Q3H PRN IV 01/07/17 04:00 01/08/17 04:48 (Hetal-Colace) 1 tab BID PO 01/07/17 09:00 01/08/17 12:05 (Milk Of Magnesia Liq) 30 ml Q12H PRN PO 01/07/17 04:00 (Senokot) 17.2 mg Q12H PRN PO 01/07/17 04:00 (Dulcolax Supp) 10 mg DAILY PRN RECTAL 01/07/17 04:00 (Lactulose Liq) 30 ml DAILY PRN PO 01/07/17 04:00 (Thorazine) 50 mg Q8HR PRN PO 01/07/17 06:15 01/07/17 10:34 (Protonix Inj) 40 mg Q12H IV PUSH 01/07/17 12:00 01/08/17 12:05 (Carafate Liq) 1 gm ACHS PO 01/07/17 16:00 01/08/17 12:05 (Reglan Inj) 5 mg Q8HR IV PUSH 01/07/17 14:00 01/08/17 07:06 (Miralax) 17 gm DAILY PO 01/08/17 09:00 01/08/17 12:05 (Catapres) 0.1 mg Q8HR PRN PO 01/08/17 14:30 A/P Problem List: (1) GI bleed ICD Code: K92.2 - Gastrointestinal hemorrhage, unspecified Status: Acute (2) Intractable nausea and vomiting ICD Code: R11.2 - Nausea with vomiting, unspecified Status: Acute (3) VALERIA (acute kidney injury) ICD Code: N17.9 - Acute kidney failure, unspecified Status: Acute (4) DM (diabetes mellitus) ICD Code: E11.9 - Type 2 diabetes mellitus without complications Status: Acute Assessment and Plan 56-year-old male with PMH of DM and GERD who presented to the ER with complaints of epigastric pain, nausea, vomiting and persistent hiccups for approx 1wk. States has been taking OTC medications with no relief. Denies fever, chills, diarrhea or sick contacts. Reports vomiting now coffee ground emesis, similar to previous episode of GI Bleed. UGIB Multiple episodes of nausea/vomiting, now with hematemesis. Hiccups. Resolved at present. similar presentation 09/19/16 s/p EGD by Dr. Pimentel w/ LA Class C Esophagitis/ Gastritis, instructed to continue w/ PPI/Carafate, however states taken off meds by PCP approx 1mo ago for unknown reasons. Hemodynamically stable. Hemoglobin has dropped from 16.1 to 13.1. May be dilutional. AM labs to monitor trend. Followed by GI. Off of Protonix drip. On Protonix 40 mg IV twice a day, Carafate and Reglan. Possible EGD on Monday if symptoms persist. Tolerating clear liquid diet. Advance per GI. Intractable N/V improved Continue Zofran as needed GES pending Hypertension BP 157/104 Begin nifedipine SR 30mg daily clonidine 0.1mg q8h prn with parameters monitor vitals VALERIA Likely secondary to intractable nausea/vomiting/dehydration Creatinine much improved, 5.36 --> 1.55. UCX shows no growth x 24hrs Nephrology following. Appreciate recs. Renal US shows no evidence of hydronephrosis. Per nephrology, some questionable heterogenicity of the left kidney was seen however clinically does not correlate any significant issues. Monitor I's and O's Hypokalemia Status post repletion AM labs to monitor response Hyperbilirubinemia Elevated AST Liver ultrasound ordered Hepatitis profile Repeat CMP in a.m. Diabetes mellitus blood sugar 126 Continue with Accu-Cheks and insulin sliding scale Continue to hold metformin DVT prophylaxis Pharmacological contraindication secondary to GI bleed Discussed with Dr. Frias and patient Kaylin Boone Jan 08, 2017 16:40
[2017-01-08] MEDS ORDERED: NIFEdipine 30 MG SUSTAINED RELEASE TAB PO ONE (16:45)
[2017-01-08] MEDS ORDERED: POLYETHYLENE GLYCOL 17 GM PKG PO ONE (17:15)
--- NOTE | 2017-01-08 17:20 | HHI.GIFU ---
Subjective Remarks Patient is resting in bed, denies N/V or hematemesis, states last episode was a couple of days ago. He has persistent hiccups, states on going for a long time. (Markie Hess) Objective Vitals I&O Vital Signs Date Time Temp Pulse Resp B/P (MAP) Pulse Ox O2 Delivery O2 Flow Rate FiO2 01/08/17 12:00 98.4 108 18 157/104 (121) 95 01/08/17 08:00 97.9 96 17 160/104 (122) 96 01/08/17 07:51 97.9 96 17 160/104 (122) 96 01/08/17 00:27 98.3 105 18 135/86 (102) 95 01/07/17 20:43 98.4 103 16 116/84 (95) 93 I/O 01/07/17 01/07/17 01/07/17 01/08/17 01/08/17 01/08/17 07:00 15:00 23:00 07:00 15:00 23:00 Intake Total 60 ml 360 ml Output Total 500 ml 550 ml Balance 60 ml -140 ml -550 ml Intake Oral 60 ml 360 ml Output Urine Total 500 ml 550 ml # Bowel Movements 0 Laboratory Laboratory Tests Test 01/08/17 00:58 01/08/17 07:30 01/08/17 11:44 White Blood Count 10.4 Red Blood Count 4.00 Hemoglobin 13.1 Hematocrit 37.9 Mean Corpuscular Volume 94.9 Mean Corpuscular Hemoglobin 32.8 Mean Corpuscular Hemoglobin Concent 34.6 Red Cell Distribution Width 14.5 Platelet Count 177 Mean Platelet Volume 7.8 Neutrophils (%) (Auto) 75.6 Lymphocytes (%) (Auto) 15.7 Monocytes (%) (Auto) 8.3 Eosinophils (%) (Auto) 0.2 Basophils (%) (Auto) 0.2 Neutrophils # (Auto) 7.9 Lymphocytes # (Auto) 1.6 Monocytes # (Auto) 0.9 Eosinophils # (Auto) 0.0 Basophils # (Auto) 0.0 CBC Comment DIFF FINAL Differential Comment Blood Urea Nitrogen 28 Creatinine 1.55 Random Glucose 143 Total Protein 7.1 Albumin 3.3 Calcium Level 9.0 Alkaline Phosphatase 60 Aspartate Amino Transf (AST/SGOT) 60 Alanine Aminotransferase (ALT/SGPT) 31 Total Bilirubin 1.4 Sodium Level 143 Potassium Level 2.5 3.1 3.0 Chloride Level 99 Carbon Dioxide Level 35.7 Anion Gap 8 Estimat Glomerular Filtration Rate 56 Magnesium Level 2.3 Lipase 171 Date/Time Source Procedure Growth Status 01/07/17 04:20 Urine Clean Catch Urine Culture - Preliminary NO GROWTH IN 24 HOURS. Resulted Imaging Last Impressions Renal Ultrasound 01/07/17 0000 Signed Impressions: Service Date/Time: Saturday, January 07, 2017 07:33 - CONCLUSION: 1. No evidence for hydronephrosis. 2. Left kidney slightly heterogeneous of uncertain etiology but could be pyelonephritis in the right clinical setting. Johan Payton MD Chest X-Ray 01/07/17 0000 Signed Impressions: Service Date/Time: Saturday, January 07, 2017 01:42 - CONCLUSION: 1. Basilar atelectasis. No effusion. No pneumothorax. Heart size within normal limits. Castro Moctezuma MD Physical Exam HEENT: normocephalic; atraumatic; no jaundice. NECK: Neck is supple, no JVD, no lymphadenopathy. CHEST: Chest is clear to auscultation and percussion. CARDIAC: Regular rate and rhythm with no murmur gallop or rubs. ABDOMEN: Soft, nondistended, nontender; no hepatosplenomegaly; bowel sounds are present in all four quadrants. EXTREMITIES: No clubbing, cyanosis, or edema. SKIN: Normal; no rash; no jaundice. INCIDENT ENGINEER: No focal deficits; alert and oriented times three. (Deshawn,Markie [facility]) Assessment and Plan Plan ASSESSMENT: - GIB, Hematemesis. Pt was admitted for the same in September and underwent with EGD (09/20/16)----> There was LA Class C esophagitis noted; biopsy was performed 2. There was erythematous gastritis in the gastric antrum; biopsy was performed. 3. Normal duodenal mucosa 4. Retroflexed views revealed no abnormalities. Gastric mucosa with moderate active chronic gastritis and focal intestinal metaplasia, A Madelin stain is positive for a small number of Helicobacter-like organisms, distal esophagus biopsy with squamous mucosa with marked parakeratosis and mild chronic inflammation. He reports that he was treated with antibiotics and his symptoms improved, but since being off of the antibiotics, he has been having some burning discomfort in his stomach and esophagus. Drop in hgb today 13.1 - Intractable N/V, Epigastric pain. Pt also with hx of dm and intractable hiccups. Reglan, will add Phenergan - Hiccups. Will check GES. Reglan at reduced risk. - Mild elevation of AST, bili Hepatitis panel pending Liver US showed moderate hepatic steatosis, no evidence of cholelithiasis - VALERIA. Has had intractable nausea/vomiting, likely related to dehydration. IVF. - DM. Per attending. PLAN: - Clear liquids - Await GES - Await Stool for H. Pylori Ag - Cont. Protonix 40mg IV BID - Cont Carafate - Cont. Reglan at 5mg IV q8h - Add Phenergan - CBC in am - Possible EGD sometimes this week pending GES results and clinical symptoms - Pt seen and examined by Dr. Ferrara and myself and this note is written on his behalf (Markie Hess) Physician Comments Agree with the plan as above, will follow up with you. (Lisa Ferrara MD) Markie Hess Jan 08, 2017 17:20 Lisa Ferrara MD Jan 09, 2017 09:24
[2017-01-08] MEDS ORDERED: PILL SPLITTER OTHER PRN (18:00)
[2017-01-08] MEDS: PROMETHAZINE HCL 25 MG TAB PO SCH (18:00)
--- NOTE | 2017-01-08 18:39 | HHI.NPPN ---
Subjective Additional Remarks Feeling better today Objective Data Data 01/08/17 01/09/17 18:59 06:59 Intake Total 275 ml Output Total 400 ml Balance -125 ml Intake Oral 275 ml Output Urine Total 400 ml # Bowel Movements 0 Vital Signs Date Time Temp Pulse Resp B/P (MAP) Pulse Ox O2 Delivery O2 Flow Rate FiO2 01/08/17 16:00 97.8 109 16 142/98 (113) 96 01/08/17 12:00 98.4 108 18 157/104 (121) 95 01/08/17 08:00 97.9 96 17 160/104 (122) 96 01/08/17 07:51 97.9 96 17 160/104 (122) 96 01/08/17 00:27 98.3 105 18 135/86 (102) 95 01/07/17 20:43 98.4 103 16 116/84 (95) 93 -: 01/08/17 0058 01/08/17 1144 Physical Exam General Appearance: No Acute Distress, Comfortable Throat Throat Exam: Oral Mucosa [place] & Moist Neck Neck Exam: Neck Supple Pulmonary Resp Exam: Clear Bilaterally Cardiology CV Exam: Regular, Normal Sinus Rhythm Gastrointestinal/Abdomen GI Exam: Soft, Non-Tender, Bowel Sounds Present Integumentary Skin Exam: Dry, Intact Extremeties Extremities Exam: No Edema Neurologic Neuro Exam: Alert, Awake, Oriented, Speech Clear Psychiatric Psych Exam: Appropriate Responses Assessment/Plan Problem List: (1) VALERIA (acute kidney injury) ICD Codes: N17.9 - Acute kidney failure, unspecified Status: Acute Plan: Creatinine of 0.99 in September of this year. VALERIA due to volume depletion, nausea and vomiting. Creatine 5 -> 1.5 on IVFs. Continue IVFs for now with NS at 100cc/hour Stop IVFs tomorrow if tolerating PO intake and creatinine stable. Renal ultrasound was otherwise unremarkable, some questionable heterogenicity of the left kidney was seen, however clinically this does not correlate to any significant issues. Continue to monitor urine output and continue to monitor at this time. (2) GI bleed ICD Codes: K92.2 - Gastrointestinal hemorrhage, unspecified Status: Acute Plan: The patient presented with nausea and vomiting which progressed to hematemesis. He has a history of H. Pylori as well as gastritis and esophagitis in the past. At this point he continues on a PPI and Carafate. Continue to follow with GI service - possible EGD this week. On reglan, phenergan for hiccups (3) DM (diabetes mellitus) ICD Codes: E11.9 - Type 2 diabetes mellitus without complications Status: Acute Plan: Diabetes: The patient had been on metformin in the past. Continue to hold this. He is on insulin sliding scale. Continue monitor for improvement. Problem Qualifiers (1) DM (diabetes mellitus): Kennedy Olmos MD Jan 08, 2017 18:39
[2017-01-08 20:00] VITALS: BP 173/105; PULSE 110; RESP 18; TEMP 98; O2SAT 98
[2017-01-08] MEDS: cloNIDine HCL 0.1 MG TAB PO PRN (20:05)
[2017-01-09] VITALS (7 sets, daily range): BP systolic 92–183; BP diastolic 71–115; PULSE 81–106; RESP 16–18; TEMP 95.3–99.2; O2SAT 96–98
[2017-01-09] MEDS: PANTOPRAZOLE SODIUM 40 MG VIAL IV PUSH SCH ×2 (00:31→12:00)
[2017-01-09] MEDS: PROMETHAZINE HCL 25 MG TAB PO SCH ×4 (00:31→18:19)
[2017-01-09 05:22] LABS: AUTOMATED NEUTROPHIL # 5.1 TH/MM3 (1.8-7.7); BASOPHIL % 0.3 % (0.0-2.0); EOSINOPHIL # 0.1 TH/MM3 (0-0.4); HEMATOCRIT 37.1 % (39.0-51.0); HEMO FLAGS DIFF FINAL; LYMPHOCYTE # 1.8 TH/MM3 (1.0-4.8); MEAN CELL VOLUME 95.4 FL (80.0-100.0); MEAN CORPUSCULAR HEMOGLOBIN 32.8 PG (27.0-34.0); MEAN CORPUSCULAR HGB CONC 34.4 % (32.0-36.0); MONO % 9.2 % (0.0-8.0); NEUT % 66.5 % (16.0-70.0); PLATELET COUNT 151 TH/MM3 (150-450); RED BLOOD COUNT 3.89 MIL/MM3 (4.50-5.90); RED CELL DISTRIBUTION WIDTH 14.1 % (11.6-17.2); WHITE BLOOD COUNT 7.7 TH/MM3 (4.0-11.0)
[2017-01-09 05:40] LABS: ALKALINE PHOSPHATASE 57 U/L (45-117); ALT (GPT) 41 U/L (12-78); ANION GAP 7 MEQ/L (5-15); AST (GOT) 50 U/L (15-37); BICARBONATE 27.8 MEQ/L (21.0-32.0); BLOOD UREA NITROGEN 15 MG/DL (7-18); CHLORIDE 106 MEQ/L (98-107); GLOMERULAR FILTRATION RATE 101 ML/MIN (>89); POTASSIUM 3.3 MEQ/L (3.5-5.1); SODIUM (NA) 141 MEQ/L (136-145); TOTAL BILIRUBIN ADULT 1.4 MG/DL (0.2-1.0)
[2017-01-09] MEDS: SODIUM CHLOR 0.9% 1000 ML INJ 1,000 ML IV SCH ×2 (05:58→15:58)
[2017-01-09] MEDS: METOCLOPRAMIDE HCL 10 MG/2 ML VIAL IV PUSH SCH ×3 (06:07→21:53)
[2017-01-09] MEDS: INSULIN ASPART SUPPLEMENTAL SCALE SQ SCH ×4 (07:00→21:00)
[2017-01-09] MEDS: SUCRALFATE 1 GM/10 ML CUP PO SCH ×4 (08:49→21:52)
[2017-01-09] MEDS: POTASSIUM CHLORIDE 10 MEQ CONTROLLED RELEASE TAB PO ONE ×2 (08:49→15:28)
[2017-01-09] MEDS: POLYETHYLENE GLYCOL 17 GM PKG PO SCH ×2 (08:50)
[2017-01-09] MEDS: SODIUM CHLORIDE 0.9% FLUSH 10 ML FLUSH IV FLUSH SCH ×2 (08:50→21:53)
[2017-01-09] MEDS ORDERED: NIFEdipine 30 MG SUSTAINED RELEASE TAB PO SCH (09:00)
[2017-01-09] MEDS: DOCUSATE SODIUM 50 MG/SENNA 8.6 MG TAB PO SCH ×2 (09:00→21:52)
[2017-01-09] MEDS ORDERED: POTASSIUM CHLORIDE 10 MEQ CONTROLLED RELEASE TAB PO ONE (09:45)
--- NOTE | 2017-01-09 09:45 | HHI.PR ---
Subjective Remarks Follow up on patient with GIB, intractable N/V and VALERIA. Patient seen and examined today. Patient reports abdominal pain is the same. Denies any improvement. Requesting to eat. Denies any nausea or vomiting. Denies any fever or chills. Denies any chest pain or shortness of breath. No BM. Denies any dysuria. Objective Vitals Vital Signs Date Time Temp Pulse Resp B/P (MAP) Pulse Ox O2 Delivery O2 Flow Rate FiO2 01/09/17 08:00 99.2 99 17 151/100 (117) 98 01/09/17 04:02 98.4 81 18 112/79 (90) 96 01/09/17 00:00 98.5 92 18 92/71 (78) 98 01/08/17 20:00 98.0 110 18 173/105 (127) 98 01/08/17 16:00 97.8 109 16 142/98 (113) 96 01/08/17 12:00 98.4 108 18 157/104 (121) 95 I/O 01/08/17 01/08/17 01/08/17 01/09/17 01/09/17 01/09/17 07:00 15:00 23:00 07:00 15:00 23:00 Intake Total 275 ml 3820 ml 240 ml Output Total 550 ml 400 ml 600 ml 800 ml Balance -550 ml -125 ml 3220 ml -560 ml Intake Oral 275 ml 240 ml 240 ml IV Total 3580 ml Output Urine Total 550 ml 400 ml 600 ml 800 ml # Bowel Movements 0 0 0 0 Result Diagram: 01/09/17 0356 01/09/17 0356 Imaging Last Impressions Liver Ultrasound 01/08/17 0000 Signed Impressions: Service Date/Time: Sunday, January 08, 2017 08:08 - CONCLUSION: 1. Echogenic liver likely moderate hepatic steatosis. 2. No evidence for cholelithiasis. 3. Nonvisualization of the pancreas. Johan Payton MD Renal Ultrasound 01/07/17 0000 Signed Impressions: Service Date/Time: Saturday, January 07, 2017 07:33 - CONCLUSION: 1. No evidence for hydronephrosis. 2. Left kidney slightly heterogeneous of uncertain etiology but could be pyelonephritis in the right clinical setting. Johan Payton MD Chest X-Ray 01/07/17 0000 Signed Impressions: Service Date/Time: Saturday, January 07, 2017 01:42 - CONCLUSION: 1. Basilar atelectasis. No effusion. No pneumothorax. Heart size within normal limits. Castro Moctezuma MD Objective Remarks GENERAL: Well-nourished, well-developed patient in NAD. Awake and alert. Appears comfortable. Sitting up in hospital bed. SKIN: Warm and dry. No rash. HEAD: Normocephalic. Atraumatic. EYES: EOMI. No scleral icterus. No injection or drainage. ENT: No nasal bleeding or discharge. Mucous membranes pink and moist. NECK: Supple. Trachea midline. CARDIOVASCULAR: Regular rate and rhythm. S1, S2 noted. No murmur appreciated. RESPIRATORY: No accessory muscle use. Clear to auscultation. Breath sounds equal bilaterally. GASTROINTESTINAL: Abdomen soft, non-tender, nondistended. Normoactive bowel sounds x4. MUSCULOSKELETAL: No obvious deformities. Extremities without clubbing, cyanosis , or edema. NEUROLOGICAL: Awake and alert. Able to move all extremities. Normal speech. PSYCHIATRIC: Flat affect. Medications and IVs Current Medications Medications (Trade) Dose Ordered Sig/[place] Route Start Time Stop Time Status Last Admin (D50w (Vial) Inj) 50 ml UNSCH PRN IV 01/07/17 04:00 (Glucagon Inj) 1 mg UNSCH PRN OTHER 01/07/17 04:00 (NovoLOG SUPPLEMENTAL SCALE) 1 ACHS SLIDING SCALE SQ 01/07/17 07:00 01/07/17 06:51 Sodium Chloride 1,000 ml @ 100 mls/hr Q10H IV 01/07/17 03:58 01/08/17 19:58 (NS Flush) 2 ml UNSCH PRN IV FLUSH 01/07/17 04:00 (NS Flush) 2 ml BID IV FLUSH 01/07/17 09:00 01/09/17 08:50 (Zofran Inj) 4 mg Q6H PRN IVP 01/07/17 04:00 (Tylenol) 650 mg Q6H PRN PO 01/07/17 04:00 (Morphine Inj) 1 mg Q3H PRN IV 01/07/17 04:00 (Morphine Inj) 2 mg Q3H PRN IV 01/07/17 04:00 01/08/17 20:22 (Hetal-Colace) 1 tab BID PO 01/07/17 09:00 01/08/17 12:05 (Milk Of Magnesia Liq) 30 ml Q12H PRN PO 01/07/17 04:00 (Senokot) 17.2 mg Q12H PRN PO 01/07/17 04:00 (Dulcolax Supp) 10 mg DAILY PRN RECTAL 01/07/17 04:00 (Lactulose Liq) 30 ml DAILY PRN PO 01/07/17 04:00 (Thorazine) 50 mg Q8HR PRN PO 01/07/17 06:15 01/07/17 10:34 (Protonix Inj) 40 mg Q12H IV PUSH 01/07/17 12:00 01/09/17 00:31 (Carafate Liq) 1 gm ACHS PO 01/07/17 16:00 01/09/17 08:49 (Reglan Inj) 5 mg Q8HR IV PUSH 01/07/17 14:00 01/09/17 06:07 (Miralax) 17 gm DAILY PO 01/08/17 09:00 01/08/17 12:05 (Catapres) 0.1 mg Q8HR PRN PO 01/08/17 14:30 01/08/17 20:05 (Procardia Xl) 30 mg DAILY PO 01/09/17 09:00 (Miralax) 17 gm DAILY PO 01/09/17 09:00 (Phenergan) 12.5 mg Q6H PO 01/08/17 18:00 01/09/17 00:31 (Pill Splitter) 1 ea UNSCH PRN OTHER 01/08/17 18:00 (KCl) 30 meq ONCE ONCE PO 01/09/17 08:15 01/09/17 08:16 UNV A/P Problem List: (1) GI bleed ICD Code: K92.2 - Gastrointestinal hemorrhage, unspecified Status: Acute (2) Intractable nausea and vomiting ICD Code: R11.2 - Nausea with vomiting, unspecified Status: Acute (3) VALERIA (acute kidney injury) ICD Code: N17.9 - Acute kidney failure, unspecified Status: Acute (4) DM (diabetes mellitus) ICD Code: E11.9 - Type 2 diabetes mellitus without complications Status: Acute Assessment and Plan 56-year-old male with PMH of DM and GERD who presented to the ER with complaints of epigastric pain, nausea, vomiting and persistent hiccups for approx 1wk. States has been taking OTC medications with no relief. Denies fever, chills, diarrhea or sick contacts. Reports vomiting now coffee ground emesis, similar to previous episode of GI Bleed. UGIB Multiple episodes of nausea/vomiting, now with hematemesis. Hiccups. Resolved at present. similar presentation 09/19/16 s/p EGD by Dr. Pimentel w/ LA Class C Esophagitis/ Gastritis, instructed to continue w/ PPI/Carafate, however states taken off meds by PCP approx 1mo ago for unknown reasons. Hemodynamically stable. Hemoglobin has dropped from 16.1 to 12.8. May be dilutional. AM labs to monitor trend. Followed by GI. Off of Protonix drip. Continue on Protonix 40 mg IV twice a day, Carafate and Reglan. Phenergan added by GI for intractable hiccups. Possible EGD sometime this week pending GES results and clinical course. Tolerating clear liquid diet. Requesting to eat. Advance per GI. Intractable N/V Epigastric pain N/V resolved. Abdominal pain unchanged ppr but requesting to eat. Continue Zofran as needed GES pending h/o Hpylori completed abx treatment in the past. Stool for H Pylori Ag pending specimen. Hypertension hypotensive after Nifedipine dose. Patient BP 151/100 this am. Patient refusing Nifedipine now. Trial Norvasc 2.5mg daily clonidine 0.1mg q8h prn with parameters monitor vitals VALERIA Likely secondary to intractable nausea/vomiting/dehydration Creatinine much improved, 5.36 --> 0.93 UCX shows no growth x 24hrs Nephrology following. Appreciate recs. Plan to stop IVF once tolerating po and creatinine stable. Renal US shows no evidence of hydronephrosis. Per nephrology, some questionable heterogenicity of the left kidney was seen however clinically does not correlate any significant issues. Monitor I's and O's Hypokalemia improved but persistent status post repletion K level 3.3 KCL 40meq once Mag level 2.3 AM labs to monitor response Hyperbilirubinemia, stable Elevated AST, improving Liver ultrasound showing moderate hepatic steatosis, no e/o cholelithiasis Hepatitis profile pending alcohol cessation Diabetes mellitus blood sugar 131 Continue with Accu-Cheks and insulin sliding scale Continue to hold metformin DVT prophylaxis Pharmacological contraindication secondary to GI bleed Discussed with Dr. Frias and patient Problem Qualifiers (1) DM (diabetes mellitus): Kaylin Boone Jan 09, 2017 09:45
[2017-01-09] MEDS ORDERED: amLODIPine BESYLATE 5 MG TAB PO ONE (10:15)
--- NOTE | 2017-01-09 14:06 | RADRPT ---
EXAM DATE/TIME: 01/09/2017 11:24 [place] COMPARISON: No previous studies available for comparison. INDICATIONS : Nausea, vomiting and abdominal pain for one week. DOSE: 1.0 mCi Tc99m Sulfur Colloid Labeled Whole egg PO MEDICATONS: 1.) 5 mg Reglan IV at 90 minutes IMAGIN hrs MEDICAL HISTORY : Diabetes mellitus type 2. Gastritis. SURGICAL HISTORY : None. ENCOUNTER: Initial ACUITY: 1 week PAIN SCALE: 3/10 LOCATION: Abdomen. TECHNIQUE: Following the oral ingestion of radiotracer-labeled meal, dynamic sequential images in the CROATIAN projec tion were acquired with simultaneous computer acquisition. The data set was decay-corrected. FINDINGS: LAG PHASE: There is 10 minutes before onset of gastric emptying. EMPTYING: Gastric emptying kinetics are linear. The decay-corrected, back-extrapolated half-time of emptying i s 13 minutes. (Normal for this lab is 45- 90 minutes.) INTERVENTION: Reglan given at 90 minutes CONCLUSION: Normal gastric emptying.. Johan Payton MD on January 09, 2017 at 14:00 Board Certified Radiologist. This report was verified electronically.
[2017-01-09] MEDS: MORPHINE SULFATE 4 MG/ML INJ IV PRN (15:38)
--- NOTE | 2017-01-09 17:52 | HHI.GIFU ---
Subjective Remarks Resting in bed. No further bleeding. States mild nausea, no vomiting. No abdominal pain. Started on full liquid diet. (Dianna Denise) Objective Vitals I&O Vital Signs Date Time Temp Pulse Resp B/P (MAP) Pulse Ox O2 Delivery O2 Flow Rate FiO2 01/09/17 08:00 99.2 99 17 151/100 (117) 98 01/09/17 04:02 98.4 81 18 112/79 (90) 96 01/09/17 00:00 98.5 92 18 92/71 (78) 98 01/08/17 20:00 98.0 110 18 173/105 (127) 98 I/O 01/08/17 01/08/17 01/08/17 01/09/17 01/09/17 01/09/17 06:59 14:59 22:59 06:59 14:59 22:59 Intake Total 275 ml 3820 ml 240 ml Output Total 550 ml 400 ml 600 ml 800 ml Balance -550 ml -125 ml 3220 ml -560 ml Intake Oral 275 ml 240 ml 240 ml IV Total 3580 ml Output Urine Total 550 ml 400 ml 600 ml 800 ml # Bowel Movements 0 0 0 0 Laboratory Laboratory Tests Test 01/09/17 03:56 White Blood Count 7.7 Red Blood Count 3.89 Hemoglobin 12.8 Hematocrit 37.1 Mean Corpuscular Volume 95.4 Mean Corpuscular Hemoglobin 32.8 Mean Corpuscular Hemoglobin Concent 34.4 Red Cell Distribution Width 14.1 Platelet Count 151 Mean Platelet Volume 7.7 Neutrophils (%) (Auto) 66.5 Lymphocytes (%) (Auto) 23.0 Monocytes (%) (Auto) 9.2 Eosinophils (%) (Auto) 1.0 Basophils (%) (Auto) 0.3 Neutrophils # (Auto) 5.1 Lymphocytes # (Auto) 1.8 Monocytes # (Auto) 0.7 Eosinophils # (Auto) 0.1 Basophils # (Auto) 0.0 CBC Comment DIFF FINAL Differential Comment Blood Urea Nitrogen 15 Creatinine 0.93 Random Glucose 131 Total Protein 6.9 Albumin 3.1 Calcium Level 8.7 Alkaline Phosphatase 57 Aspartate Amino Transf (AST/SGOT) 50 Alanine Aminotransferase (ALT/SGPT) 41 Total Bilirubin 1.4 Sodium Level 141 Potassium Level 3.3 Chloride Level 106 Carbon Dioxide Level 27.8 Anion Gap 7 Estimat Glomerular Filtration Rate 101 Date/Time Source Procedure Growth Status 01/07/17 04:20 Urine Clean Catch Urine Culture - Final NO GROWTH IN 48 HOURS. Complete Imaging Last Impressions Liver Ultrasound 01/08/17 0000 Signed Impressions: Service Date/Time: Sunday, January 08, 2017 08:08 - CONCLUSION: 1. Echogenic liver likely moderate hepatic steatosis. 2. No evidence for cholelithiasis. 3. Nonvisualization of the pancreas. Johan Payton MD Renal Ultrasound 01/07/17 0000 Signed Impressions: Service Date/Time: Saturday, January 07, 2017 07:33 - CONCLUSION: 1. No evidence for hydronephrosis. 2. Left kidney slightly heterogeneous of uncertain etiology but could be pyelonephritis in the right clinical setting. Johan Payton MD Chest X-Ray 01/07/17 0000 Signed Impressions: Service Date/Time: Saturday, January 07, 2017 01:42 - CONCLUSION: 1. Basilar atelectasis. No effusion. No pneumothorax. Heart size within normal limits. Castro Moctezuma MD Physical Exam HEENT: Normocephalic; atraumatic CHEST: CTA, CARDIAC: RRR ABDOMEN: Soft, nondistended, nontender; no hepatosplenomegaly; bowel sounds are present in all four quadrants. EXTREMITIES: No clubbing, cyanosis, or edema. SKIN: Normal; no rash; no jaundice. OPTOMETRIC AIDE: No focal deficits; alert and oriented times three. (Dianna Denise [facility]) Assessment and Plan Plan ASSESSMENT: - GIB, Hematemesis. Pt was admitted for the same in September and underwent with EGD (09/20/16)----> There was LA Class C esophagitis noted; biopsy was performed 2. There was erythematous gastritis in the gastric antrum; biopsy was performed. 3. Normal duodenal mucosa 4. Retroflexed views revealed no abnormalities. Gastric mucosa with moderate active chronic gastritis and focal intestinal metaplasia, A Madelin stain is positive for a small number of Helicobacter-like organisms, distal esophagus biopsy with squamous mucosa with marked parakeratosis and mild chronic inflammation. He reports that he was treated with antibiotics and his symptoms improved, but since being off of the antibiotics, he has been having some burning discomfort in his stomach and esophagus. No further hematemesis. Mild nausea, no vomiting. Symptoms much improved. 12.8/37.1. Helicobacter pylori ag pending- not sent yet. - Intractable N/V, Epigastric pain. Pt also with hx of dm and intractable hiccups. GES unremarkable. Reglan. Improved. Tolerating full liquids. - Hiccups. Improved with reglan. GES unremarkable. - Mild elevation of LFTs. T. Bili 1.4, AST 50, ALT 41, Alk Phosph 57. US liver (01/08/17)---> echogenic liver likely moderate hepatic steatosis, no evidence for cholelithiasis, nonvisualization of the pancreas. - VALERIA. Has had intractable nausea/vomiting, likely related to dehydration. IVF. Improved. - DM. Per attending. PLAN: - Full liquids, diabetic soft diet in am - Stool for H. Pylori Ag - Cont. Protonix 40mg IV BID - Cont Carafate - Cont. Reglan at 5mg IV q8h - CBC in am - Supportive care - If tolerates diet in am, can follow up as outpatient. If patient unable to tolerate diet or if significant drop in Hgb, will consider EGD - Pt seen and examined by Dr. Ferrara and myself and this note is written on his behalf (Dianna Denise) Physician Comments Seen and examined, plan as above. (Lisa Ferrara MD) Dianna Denise Jan 09, 2017 17:52 Lisa Ferrara MD Jan 09, 2017 18:49
[2017-01-10] VITALS (7 sets, daily range): BP systolic 130–160; BP diastolic 86–105; PULSE 86–125; RESP 16–18; TEMP 96.2–99.5; O2SAT 93–99
[2017-01-10] MEDS: PANTOPRAZOLE SODIUM 40 MG VIAL IV PUSH SCH ×2 (00:14→12:17)
[2017-01-10] MEDS: cloNIDine HCL 0.1 MG TAB PO PRN (00:14)
[2017-01-10] MEDS: PROMETHAZINE HCL 25 MG TAB PO SCH ×4 (00:14→18:43)
[2017-01-10] MEDS: SODIUM CHLOR 0.9% 1000 ML INJ 1,000 ML IV SCH ×3 (00:24→21:44)
[2017-01-10] MEDS: SUCRALFATE 1 GM/10 ML CUP PO SCH ×4 (06:15→21:44)
[2017-01-10] MEDS: METOCLOPRAMIDE HCL 10 MG/2 ML VIAL IV PUSH SCH ×3 (06:16→21:43)
[2017-01-10] MEDS: INSULIN ASPART SUPPLEMENTAL SCALE SQ SCH ×4 (06:37→21:00)
[2017-01-10 07:54] LABS: AUTOMATED NEUTROPHIL # 3.8 TH/MM3 (1.8-7.7); BASOPHIL % 0.4 % (0.0-2.0); EOSINOPHIL # 0.1 TH/MM3 (0-0.4); EOSINOPHIL % 1.5 % (0.0-4.0); HEMATOCRIT 39.3 % (39.0-51.0); HEMO FLAGS DIFF FINAL; LYMPH % 27.3 % (9.0-44.0); LYMPHOCYTE # 1.7 TH/MM3 (1.0-4.8); MEAN CELL VOLUME 94.2 FL (80.0-100.0); MEAN CORPUSCULAR HEMOGLOBIN 32.6 PG (27.0-34.0); MEAN CORPUSCULAR HGB CONC 34.6 % (32.0-36.0); MONO % 11.5 % (0.0-8.0); NEUT % 59.3 % (16.0-70.0); PLATELET COUNT 153 TH/MM3 (150-450); RED BLOOD COUNT 4.17 MIL/MM3 (4.50-5.90); RED CELL DISTRIBUTION WIDTH 13.7 % (11.6-17.2); WHITE BLOOD COUNT 6.4 TH/MM3 (4.0-11.0)
[2017-01-10 08:15] LABS: ALT (GPT) 40 U/L (12-78); ANION GAP 9 MEQ/L (5-15); AST (GOT) 43 U/L (15-37); BICARBONATE 24.2 MEQ/L (21.0-32.0); BLOOD UREA NITROGEN 14 MG/DL (7-18); CHLORIDE 104 MEQ/L (98-107); GLOMERULAR FILTRATION RATE 104 ML/MIN (>89); POTASSIUM 3.3 MEQ/L (3.5-5.1); SODIUM (NA) 137 MEQ/L (136-145)
[2017-01-10 08:18] LABS: ALKALINE PHOSPHATASE 68 U/L (45-117); TOTAL BILIRUBIN ADULT 1.2 MG/DL (0.2-1.0)
[2017-01-10] MEDS: DOCUSATE SODIUM 50 MG/SENNA 8.6 MG TAB PO SCH ×2 (08:57→21:00)
[2017-01-10] MEDS: SODIUM CHLORIDE 0.9% FLUSH 10 ML FLUSH IV FLUSH SCH ×2 (08:58→21:44)
[2017-01-10] MEDS ORDERED: POTASSIUM CHLORIDE 10 MEQ CONTROLLED RELEASE TAB PO ONE (09:00)
[2017-01-10] MEDS ORDERED: amLODIPine BESYLATE 5 MG TAB PO SCH (09:00)
[2017-01-10] MEDS: POLYETHYLENE GLYCOL 17 GM PKG PO SCH ×2 (09:00)
[2017-01-10] MEDS ORDERED: SILDENAFIL CITRATE 20 MG TAB PO ONE (10:30)
[2017-01-10] MEDS ORDERED: DILTIAZEM-CD 120 MG CAP ER PO ONE (10:30)
--- NOTE | 2017-01-10 10:38 | HHI.PR ---
Subjective Remarks Mr. Baptiste did well with dinner yesterday but he's having problems again with breakfast. He reports that she has upper chest pains and sensations of the food gets stuck when he tries to swallow. He's had an EGD approximately 1 month ago that showed no stenosis. Episodes do not happen every time he swallows per correlated with trying to swallow boluses of food. Less symptomatic with liquids. Etiology may be secondary to esophageal spasms. He does not have any difficulties with bowel movements. He will occasionally have nausea after eating but typically will not have problems with the upper GI symptoms when 2 hours or more has passed after eating. His gastric empty study is negative. Objective Vital Signs Date Time Temp Pulse Resp B/P (MAP) Pulse Ox O2 Delivery O2 Flow Rate FiO2 01/10/17 10:07 93 01/10/17 08:00 98.9 89 18 158/103 (121) 99 01/10/17 04:50 98.9 86 16 133/86 (102) 97 01/10/17 00:02 99.5 112 17 160/98 (118) 93 01/09/17 20:15 99.1 101 16 145/97 (113) 97 01/09/17 18:35 103 131/85 (100) 01/09/17 18:05 103 01/09/17 16:00 95.3 106 18 183/115 (137) 98 I/O 01/09/17 01/09/17 01/09/17 01/10/17 01/10/17 01/10/17 07:00 15:00 23:00 07:00 15:00 23:00 Intake Total 240 ml 0 ml 240 ml 240 ml Output Total 800 ml 800 ml Balance -560 ml -800 ml 240 ml 240 ml Intake Oral 240 ml 0 ml 240 ml 240 ml Output Urine Total 800 ml 800 ml # Voids 3 2 1 # Bowel Movements 0 0 1 Result Diagram: 01/10/17 0648 01/10/17 0648 Objective Remarks GENERAL: NAD, A&Ox3 HEAD: Normocephalic. NECK: Supple, trachea midline. No lymphadenopathy. EYES: No scleral icterus. No injection or drainage. CARDIOVASCULAR: Regular rate and rhythm without murmurs, gallops, or rubs. RESPIRATORY: Breath sounds equal bilaterally. No accessory muscle use. GASTROINTESTINAL: Abdomen soft, non-tender, nondistended. MUSCULOSKELETAL: No cyanosis, or edema. SKIN: Warm and dry. NEURO: No focal neurological deficitis. A/P Problem List: (1) Coffee ground emesis ICD Code: K92.0 - Hematemesis Status: Acute (2) Intractable nausea and vomiting ICD Code: R11.2 - Nausea with vomiting, unspecified Status: Acute (3) VALERIA (acute kidney injury) ICD Code: N17.9 - Acute kidney failure, unspecified Status: Acute (4) DM (diabetes mellitus) ICD Code: E11.9 - Type 2 diabetes mellitus without complications Status: Acute (5) GI bleed ICD Code: K92.2 - Gastrointestinal hemorrhage, unspecified Status: Acute (6) Acute renal failure ICD Code: N17.9 - Acute kidney failure, unspecified Status: Acute Assessment and Plan Assessment and Plan 56-year-old male admitted secondary to hyperemesis, GI bleed, recurrent hiccups and esophageal pains with reported dysphagia with fluid boluses. Stop amlodipine and start Cardizem for blood pressure. Trial of Cardizem and Sildenafil started for suspected esophageal spasms. Upper GI bleed Recurrent hiccups Recurrent Intractable N/V Epigastric pain Suspected esophageal spasms GI following Blood pressure treatments changed from amlodipine to Cardizem for calcium channel terrance benefit Trial of sildenafil 20 mg by mouth 3 times a day, if this provides benefit will wean to lowest tolerated dose Continue Zofran Gastric venting study was normal Continue Protonix Continue Carafate Continue when necessary Phenergan Continue regular diet and monitor patient's intake and symptoms Follow CBC Hypertension Cardizem started Amlodipine held Continue as needed clonidine VALERIA Likely related to dehydration from nausea and vomiting Renal function has improved Follow renal function IV hydration if needed for poor by mouth intake secondary to nausea Once by mouth intake improves. IV hydration Hypokalemia Monitor and replace as needed Hyperbilirubinemia Elevated AST Follow as an outpatient Stable Diabetes mellitus Holding metformin Follow blood sugars Insulin sliding scale Diabetic diet DVT prophylaxis SCDs Anticoagulants contraindicated Problem Qualifiers (1) DM (diabetes mellitus): (2) Acute renal failure: Kennedy Frias MD Jan 10, 2017 10:38
[2017-01-10] MEDS: SILDENAFIL CITRATE 20 MG TAB PO SCH ×2 (14:00→21:42)
--- NOTE | 2017-01-10 14:38 | HHI.GIFU ---
Subjective Remarks Pt c/o that his stomach hurts after his nurse gave him a bunch of pills, says he can't eat regular diet and wants something softer (he is on soft diet). He did fine with full liquid, soups. (Arianna Maldonado) Objective Vitals I&O Vital Signs Date Time Temp Pulse Resp B/P (MAP) Pulse Ox O2 Delivery O2 Flow Rate FiO2 01/10/17 12:00 99.1 90 18 156/105 (122) 97 01/10/17 10:07 93 01/10/17 08:00 98.9 89 18 158/103 (121) 99 01/10/17 04:50 98.9 86 16 133/86 (102) 97 01/10/17 00:02 99.5 112 17 160/98 (118) 93 01/09/17 20:15 99.1 101 16 145/97 (113) 97 01/09/17 18:35 103 131/85 (100) 01/09/17 18:05 103 01/09/17 16:00 95.3 106 18 183/115 (137) 98 I/O 01/09/17 01/09/17 01/09/17 01/10/17 01/10/17 01/10/17 06:59 14:59 22:59 06:59 14:59 22:59 Intake Total 240 ml 240 ml 240 ml Output Total 800 ml 800 ml Balance -560 ml -560 ml 240 ml Intake Oral 240 ml 240 ml 240 ml Output Urine Total 800 ml 800 ml # Voids 5 1 # Bowel Movements 0 0 1 Laboratory Laboratory Tests Test 01/10/17 02:30 01/10/17 06:48 White Blood Count 6.4 Red Blood Count 4.17 Hemoglobin 13.6 Hematocrit 39.3 Mean Corpuscular Volume 94.2 Mean Corpuscular Hemoglobin 32.6 Mean Corpuscular Hemoglobin Concent 34.6 Red Cell Distribution Width 13.7 Platelet Count 153 Mean Platelet Volume 7.6 Neutrophils (%) (Auto) 59.3 Lymphocytes (%) (Auto) 27.3 Monocytes (%) (Auto) 11.5 Eosinophils (%) (Auto) 1.5 Basophils (%) (Auto) 0.4 Neutrophils # (Auto) 3.8 Lymphocytes # (Auto) 1.7 Monocytes # (Auto) 0.7 Eosinophils # (Auto) 0.1 Basophils # (Auto) 0.0 CBC Comment DIFF FINAL Differential Comment Blood Urea Nitrogen 14 Creatinine 0.91 Random Glucose 142 Total Protein 7.4 Albumin 3.2 Calcium Level 9.1 Alkaline Phosphatase 68 Aspartate Amino Transf (AST/SGOT) 43 Alanine Aminotransferase (ALT/SGPT) 40 Total Bilirubin 1.2 Sodium Level 137 Potassium Level 3.3 Chloride Level 104 Carbon Dioxide Level 24.2 Anion Gap 9 Estimat Glomerular Filtration Rate 104 Date/Time Source Procedure Growth Status 01/07/17 04:20 Urine Clean Catch Urine Culture - Final NO GROWTH IN 48 HOURS. Complete Imaging Last Impressions Gastric Emptying Nuclear Medicine 01/09/17 0000 Signed Impressions: Service Date/Time: Monday, January 09, 2017 11:24 - CONCLUSION: Normal gastric emptying.. Johan Payton MD Liver Ultrasound 01/08/17 0000 Signed Impressions: Service Date/Time: Sunday, January 08, 2017 08:08 - CONCLUSION: 1. Echogenic liver likely moderate hepatic steatosis. 2. No evidence for cholelithiasis. 3. Nonvisualization of the pancreas. Johan Payton MD Renal Ultrasound 01/07/17 0000 Signed Impressions: Service Date/Time: Saturday, January 07, 2017 07:33 - CONCLUSION: 1. No evidence for hydronephrosis. 2. Left kidney slightly heterogeneous of uncertain etiology but could be pyelonephritis in the right clinical setting. Johan Payton MD Chest X-Ray 01/07/17 0000 Signed Impressions: Service Date/Time: Saturday, January 07, 2017 01:42 - CONCLUSION: 1. Basilar atelectasis. No effusion. No pneumothorax. Heart size within normal limits. Castro Moctezuma MD Physical Exam HEENT: Normocephalic; atraumatic CHEST: CTA, CARDIAC: RRR ABDOMEN: Soft, nondistended, nontender; no hepatosplenomegaly; bowel sounds are present in all four quadrants. EXTREMITIES: No clubbing, cyanosis, or edema. SKIN: Normal; no rash; no jaundice. TRIAGE REGISTER NURSE: No focal deficits; alert and oriented times three. (Arianna Maldonado) Assessment and Plan Plan ASSESSMENT: - GIB, Hematemesis. HH stable. Pt was admitted for the same in September and underwent with EGD (09/20/16)----> There was LA Class C esophagitis noted; biopsy was performed 2. There was erythematous gastritis in the gastric antrum; biopsy was performed. 3. Normal duodenal mucosa 4. Retroflexed views revealed no abnormalities. Gastric mucosa with moderate active chronic gastritis and focal intestinal metaplasia, A Madelin stain is positive for a small number of Helicobacter-like organisms, distal esophagus biopsy with squamous mucosa with marked parakeratosis and mild chronic inflammation. He reports that he was treated with antibiotics and his symptoms improved, but since being off of the antibiotics, he has been having some burning discomfort in his stomach and esophagus. No further hematemesis. Mild nausea, no vomiting. Symptoms much improved. Helicobacter pylori ag pending- - Intractable N/V, Epigastric pain. Pt also with hx of dm and intractable hiccups. GES unremarkable. Reglan. Improved. Tolerating full liquids. - Hiccups. Improved with reglan. GES unremarkable. - Mild elevation of LFTs. T. Bili 1.4, AST 50, ALT 41, Alk Phosph 57. US liver (01/08/17)---> echogenic liver likely moderate hepatic steatosis, no evidence for cholelithiasis, nonvisualization of the pancreas. - VALERIA. Has had intractable nausea/vomiting, likely related to dehydration. IVF. Improved. - DM. Per attending. PLAN: - trial diabetic diet with puree consistency - consider EGD - await Stool for H. Pylori Ag - Cont. Protonix 40mg IV BID - Cont Carafate - Cont. Reglan at 5mg IV q8h - CBC in am - Supportive care - Pt seen and examined by Dr. Ferrara and myself and this note is written on his behalf (Arianna Maldonado) Physician Comments Plan as above, will follow up with you . (Lisa Ferrara MD) Arianna Maldonado Jan 10, 2017 14:38 Lisa Ferrara MD Jan 10, 2017 16:37
[2017-01-11] VITALS (8 sets, daily range): BP systolic 135–144; BP diastolic 86–103; PULSE 98–131; RESP 16–18; TEMP 97.1–99; O2SAT 95–98
[2017-01-11] MEDS: SUCRALFATE 1 GM/10 ML CUP PO SCH ×4 (06:36→22:45)
[2017-01-11] MEDS: METOCLOPRAMIDE HCL 10 MG/2 ML VIAL IV PUSH SCH ×3 (06:36→22:46)
[2017-01-11] MEDS: PROMETHAZINE HCL 25 MG TAB PO SCH ×5 (06:36→22:45)
[2017-01-11] MEDS: SILDENAFIL CITRATE 20 MG TAB PO SCH ×3 (06:36→22:46)
[2017-01-11] MEDS: INSULIN ASPART SUPPLEMENTAL SCALE SQ SCH ×4 (06:37→21:00)
[2017-01-11] MEDS: SODIUM CHLOR 0.9% 1000 ML INJ 1,000 ML IV SCH ×2 (07:58→17:58)
[2017-01-11] MEDS: DOCUSATE SODIUM 50 MG/SENNA 8.6 MG TAB PO SCH ×2 (08:18→22:45)
[2017-01-11] MEDS: DILTIAZEM-CD 120 MG CAP ER PO SCH (08:18)
[2017-01-11] MEDS: POLYETHYLENE GLYCOL 17 GM PKG PO SCH ×2 (08:21)
[2017-01-11] MEDS: SODIUM CHLORIDE 0.9% FLUSH 10 ML FLUSH IV FLUSH SCH ×2 (08:21→22:42)
[2017-01-11 08:39] LABS: BICARBONATE 19.8 MEQ/L (21.0-32.0); POTASSIUM 3.3 MEQ/L (3.5-5.1)
--- NOTE | 2017-01-11 09:13 | HHI.PR ---
Subjective Remarks Problems with dysphagia and swallowing are present. She tolerate soft foods. No new complaints. He Is returned intermittently. Objective Vital Signs Date Time Temp Pulse Resp B/P (MAP) Pulse Ox O2 Delivery O2 Flow Rate FiO2 01/11/17 08:00 98.7 99 18 136/91 (106) 98 01/11/17 04:40 99.0 103 16 138/94 (109) 98 01/11/17 00:50 97.1 131 16 141/95 (110) 95 01/10/17 21:15 98.7 112 16 130/92 (105) 98 01/10/17 16:00 96.2 125 18 131/97 (108) 98 01/10/17 12:00 99.1 90 18 156/105 (122) 97 01/10/17 10:07 93 I/O 01/10/17 01/10/17 01/10/17 01/11/17 01/11/17 01/11/17 06:59 14:59 22:59 06:59 14:59 22:59 Intake Total 240 ml 1200 ml 480 ml Balance 240 ml 1200 ml 480 ml Intake Oral 240 ml 1200 ml 480 ml # Voids 1 6 2 # Bowel Movements 1 1 0 Result Diagram: 01/10/17 0648 01/11/17 0653 Objective Remarks GENERAL: NAD, A&Ox3 HEAD: Normocephalic. NECK: Supple, trachea midline. No lymphadenopathy. EYES: No scleral icterus. No injection or drainage. CARDIOVASCULAR: Regular rate and rhythm without murmurs, gallops, or rubs. RESPIRATORY: Breath sounds equal bilaterally. No accessory muscle use. GASTROINTESTINAL: Abdomen soft, non-tender, nondistended. MUSCULOSKELETAL: No cyanosis, or edema. SKIN: Warm and dry. NEURO: No focal neurological deficitis. A/P Problem List: (1) Coffee ground emesis ICD Code: K92.0 - Hematemesis Status: Acute (2) Intractable nausea and vomiting ICD Code: R11.2 - Nausea with vomiting, unspecified Status: Acute (3) VALERIA (acute kidney injury) ICD Code: N17.9 - Acute kidney failure, unspecified Status: Acute (4) DM (diabetes mellitus) ICD Code: E11.9 - Type 2 diabetes mellitus without complications Status: Acute (5) GI bleed ICD Code: K92.2 - Gastrointestinal hemorrhage, unspecified Status: Acute (6) Acute renal failure ICD Code: N17.9 - Acute kidney failure, unspecified Status: Acute Assessment and Plan Assessment and Plan 56-year-old male admitted secondary to hyperemesis, GI bleed, recurrent hiccups and esophageal pains with reported dysphagia with fluid boluses. Continue Cardizem. Continue sildenafil. Start when necessary Ativan for hiccups. Upper GI bleed Recurrent hiccups Recurrent Intractable N/V Epigastric pain Suspected esophageal spasms GI following Blood pressure treatments changed from amlodipine to Cardizem for calcium channel terrance benefit Trial of sildenafil 20 mg by mouth 3 times a day, if this provides benefit will wean to lowest tolerated dose Continue Zofran Gastric venting study was normal Continue Protonix Continue Carafate Continue when necessary Phenergan Continue regular diet and monitor patient's intake and symptoms Follow CBC Hypertension Cardizem started Amlodipine held Continue as needed clonidine VALERIA Likely related to dehydration from nausea and vomiting Renal function has improved Follow renal function IV hydration if needed for poor by mouth intake secondary to nausea Once by mouth intake improves. IV hydration Hypokalemia Monitor and replace as needed Hyperbilirubinemia Elevated AST Follow as an outpatient Stable Diabetes mellitus Holding metformin Follow blood sugars Insulin sliding scale Diabetic diet DVT prophylaxis SCDs Anticoagulants contraindicated Problem Qualifiers (1) DM (diabetes mellitus): (2) Acute renal failure: Kennedy Frias MD Jan 11, 2017 09:13
[2017-01-11] MEDS ORDERED: LORazepam 2 MG/ML VIAL IV PUSH PRN (09:15)
[2017-01-11] MEDS: PANTOPRAZOLE SODIUM 40 MG VIAL IV PUSH SCH ×3 (11:36→22:44)
--- NOTE | 2017-01-11 16:09 | HHI.GIFU ---
Subjective Remarks Pt says he did better with pureed diet but is still having pain. He is not interested in EGD at this time and wants to wait for the h pylori stool test which is still pending. (Arianna Maldonado) Objective Vitals I&O Vital Signs Date Time Temp Pulse Resp B/P (MAP) Pulse Ox O2 Delivery O2 Flow Rate FiO2 01/11/17 12:00 98.3 110 18 144/103 (117) 98 01/11/17 10:09 111 01/11/17 08:00 98.7 99 18 136/91 (106) 98 01/11/17 04:40 99.0 103 16 138/94 (109) 98 01/11/17 00:50 97.1 131 16 141/95 (110) 95 01/10/17 21:15 98.7 112 16 130/92 (105) 98 I/O 01/10/17 01/10/17 01/10/17 01/11/17 01/11/17 01/11/17 07:00 15:00 23:00 07:00 15:00 23:00 Intake Total 240 ml 1200 ml 480 ml Balance 240 ml 1200 ml 480 ml Intake Oral 240 ml 1200 ml 480 ml # Voids 1 6 2 # Bowel Movements 1 1 0 Laboratory Laboratory Tests Test 01/11/17 06:53 Blood Urea Nitrogen 17 Creatinine 0.91 Random Glucose 151 Calcium Level 9.3 Sodium Level 134 Potassium Level 3.3 Chloride Level 103 Carbon Dioxide Level 19.8 Anion Gap 11 Estimat Glomerular Filtration Rate 104 Date/Time Source Procedure Growth Status 01/07/17 04:20 Urine Clean Catch Urine Culture - Final NO GROWTH IN 48 HOURS. Complete Imaging Last Impressions Gastric Emptying Nuclear Medicine 01/09/17 0000 Signed Impressions: Service Date/Time: Monday, January 09, 2017 11:24 - CONCLUSION: Normal gastric emptying.. Joahn Payton MD Liver Ultrasound 01/08/17 0000 Signed Impressions: Service Date/Time: Sunday, January 08, 2017 08:08 - CONCLUSION: 1. Echogenic liver likely moderate hepatic steatosis. 2. No evidence for cholelithiasis. 3. Nonvisualization of the pancreas. Johan Payton MD Renal Ultrasound 01/07/17 0000 Signed Impressions: Service Date/Time: Saturday, January 07, 2017 07:33 - CONCLUSION: 1. No evidence for hydronephrosis. 2. Left kidney slightly heterogeneous of uncertain etiology but could be pyelonephritis in the right clinical setting. Johan Payton MD Chest X-Ray 01/07/17 0000 Signed Impressions: Service Date/Time: Saturday, January 07, 2017 01:42 - CONCLUSION: 1. Basilar atelectasis. No effusion. No pneumothorax. Heart size within normal limits. Castro Moctezuma MD Physical Exam HEENT: Normocephalic; atraumatic CHEST: CTA, CARDIAC: RRR ABDOMEN: Soft, nondistended, nontender; no hepatosplenomegaly; bowel sounds are present in all four quadrants. EXTREMITIES: No clubbing, cyanosis, or edema. SKIN: Normal; no rash; no jaundice. WATERMELON HARVESTING SUPERVISOR: No focal deficits; alert and oriented times three. (Arianna Maldonado) Assessment and Plan Plan ASSESSMENT: - GIB, Hematemesis. HH stable. Pt was admitted for the same in September and underwent with EGD (09/20/16)----> There was LA Class C esophagitis noted; biopsy was performed 2. There was erythematous gastritis in the gastric antrum; biopsy was performed. 3. Normal duodenal mucosa 4. Retroflexed views revealed no abnormalities. Gastric mucosa with moderate active chronic gastritis and focal intestinal metaplasia, A Madelin stain is positive for a small number of Helicobacter-like organisms, distal esophagus biopsy with squamous mucosa with marked parakeratosis and mild chronic inflammation. He reports that he was treated with antibiotics and his symptoms improved, but since being off of the antibiotics, he has been having some burning discomfort in his stomach and esophagus. No further hematemesis. Mild nausea, no vomiting. Symptoms improved some. Helicobacter pylori ag pending- - Intractable N/V, Epigastric pain. Pt also with hx of dm and intractable hiccups. GES unremarkable. Reglan. Improved. reg pureed diet. - Hiccups. Improved with reglan. GES unremarkable. - Mild elevation of LFTs. T. Bili 1.4, AST 50, ALT 41, Alk Phosph 57. US liver (01/08/17)---> echogenic liver likely moderate hepatic steatosis, no evidence for cholelithiasis, nonvisualization of the pancreas. - VALERIA. Has had intractable nausea/vomiting, likely related to dehydration. IVF. Improved. - DM. Per attending. PLAN: - cont diabetic diet with puree consistency - consider EGD if no improvement and h pylori neg - await Stool for H. Pylori Ag - Cont. Protonix 40mg IV BID - Cont Carafate - Cont. Reglan at 5mg IV q8h - Supportive care - Pt seen and examined by Dr. Ferrara and myself and this note is written on his behalf (Arianna Maldonado) Physician Comments Agree with the plan as above, will follow up with and further recommendations to follow based on response to therapy. (Lisa Ferrara MD) Arianna Maldonado Jan 11, 2017 16:09 Lisa Ferrara MD Jan 11, 2017 22:10
[2017-01-11] MEDS: MORPHINE SULFATE 4 MG/ML INJ IV PRN (22:46)
[2017-01-12] VITALS (7 sets, daily range): BP systolic 110–134; BP diastolic 78–94; PULSE 97–120; RESP 16–18; TEMP 97.6–99; O2SAT 97–99
[2017-01-12] MEDS: SODIUM CHLOR 0.9% 1000 ML INJ 1,000 ML IV SCH ×3 (03:37→21:02)
[2017-01-12] MEDS: SILDENAFIL CITRATE 20 MG TAB PO SCH (06:29)
[2017-01-12] MEDS: SUCRALFATE 1 GM/10 ML CUP PO SCH ×4 (06:29→21:00)
[2017-01-12] MEDS: PROMETHAZINE HCL 25 MG TAB PO SCH ×3 (06:29→17:21)
[2017-01-12] MEDS: METOCLOPRAMIDE HCL 10 MG/2 ML VIAL IV PUSH SCH (06:30)
[2017-01-12] MEDS: INSULIN ASPART SUPPLEMENTAL SCALE SQ SCH ×4 (06:33→21:00)
[2017-01-12 06:51] LABS: HEMATOCRIT 41.1 % (39.0-51.0); MEAN CELL VOLUME 92.8 FL (80.0-100.0); MEAN CORPUSCULAR HEMOGLOBIN 32.9 PG (27.0-34.0); MEAN CORPUSCULAR HGB CONC 35.5 % (32.0-36.0); PLATELET COUNT 180 TH/MM3 (150-450); RED BLOOD COUNT 4.43 MIL/MM3 (4.50-5.90); RED CELL DISTRIBUTION WIDTH 13.5 % (11.6-17.2); WHITE BLOOD COUNT 8.8 TH/MM3 (4.0-11.0)
[2017-01-12 07:05] LABS: BICARBONATE 21.9 MEQ/L (21.0-32.0); POTASSIUM 3.2 MEQ/L (3.5-5.1)
[2017-01-12 07:17] LABS: REVIEW FLAG FINAL
[2017-01-12] MEDS: POLYETHYLENE GLYCOL 17 GM PKG PO SCH ×2 (07:45→09:00)
[2017-01-12] MEDS ORDERED: POTASSIUM CHLORIDE 10 MEQ CONTROLLED RELEASE TAB PO ONE (08:00)
[2017-01-12] MEDS: DILTIAZEM-CD 120 MG CAP ER PO SCH (09:45)
[2017-01-12] MEDS: DOCUSATE SODIUM 50 MG/SENNA 8.6 MG TAB PO SCH ×2 (09:46→21:00)
[2017-01-12] MEDS: SODIUM CHLORIDE 0.9% FLUSH 10 ML FLUSH IV FLUSH SCH ×2 (09:48→21:00)
--- NOTE | 2017-01-12 10:44 | HHI.PR ---
Subjective Remarks No new complaints. Patient still has dyspepsia after eating. He no longer reports symptoms of obstruction of his esophagus or food boluses being, upon swallowing. No other new complaints, H pylori is pending. Objective Vital Signs Date Time Temp Pulse Resp B/P (MAP) Pulse Ox O2 Delivery O2 Flow Rate FiO2 01/12/17 08:00 97.6 120 18 110/78 (89) 98 01/12/17 04:45 97.9 112 16 111/82 (92) 97 01/12/17 01:30 Room Air 01/12/17 00:50 98.7 114 17 112/78 (89) 98 01/11/17 22:54 18 01/11/17 20:15 98 01/11/17 20:10 98.1 117 18 141/90 (107) 96 01/11/17 16:00 98.1 100 18 135/86 (102) 96 01/11/17 12:00 98.3 110 18 144/103 (117) 98 I/O 01/11/17 01/11/17 01/11/17 01/12/17 01/12/17 01/12/17 07:00 15:00 23:00 07:00 15:00 23:00 Intake Total 480 ml 740 ml 240 ml 480 ml Balance 480 ml 740 ml 240 ml 480 ml Intake Oral 480 ml 740 ml 240 ml 480 ml # Voids 2 2 1 2 # Bowel Movements 0 0 0 0 Result Diagram: 01/12/1737 01/12/17 0537 Objective Remarks GENERAL: NAD, A&Ox3 HEAD: Normocephalic. NECK: Supple, trachea midline. No lymphadenopathy. EYES: No scleral icterus. No injection or drainage. CARDIOVASCULAR: Regular rate and rhythm without murmurs, gallops, or rubs. RESPIRATORY: Breath sounds equal bilaterally. No accessory muscle use. GASTROINTESTINAL: Abdomen soft, non-tender, nondistended. MUSCULOSKELETAL: No cyanosis, or edema. SKIN: Warm and dry. NEURO: No focal neurological deficitis. A/P Problem List: (1) Coffee ground emesis ICD Code: K92.0 - Hematemesis Status: Acute (2) Intractable nausea and vomiting ICD Code: R11.2 - Nausea with vomiting, unspecified Status: Acute (3) VALERIA (acute kidney injury) ICD Code: N17.9 - Acute kidney failure, unspecified Status: Acute (4) DM (diabetes mellitus) ICD Code: E11.9 - Type 2 diabetes mellitus without complications Status: Acute (5) GI bleed ICD Code: K92.2 - Gastrointestinal hemorrhage, unspecified Status: Acute (6) Acute renal failure ICD Code: N17.9 - Acute kidney failure, unspecified Status: Acute Assessment and Plan Assessment and Plan 56-year-old male admitted secondary to hyperemesis, GI bleed, recurrent hiccups and esophageal pains with reported dysphagia with fluid boluses. Continue Cardizem. Stop sildenafil. Monitor for any recurrence of esophageal spasms. As needed Ativan for hiccups. Follow H pylori results. Upper GI bleed Recurrent hiccups Recurrent Intractable N/V Epigastric pain Suspected esophageal spasms GI following Blood pressure treatments changed from amlodipine to Cardizem for calcium channel terrance benefit Trial of sildenafil 20 mg by mouth 3 times a day, if this provides benefit will wean to lowest tolerated dose Continue Zofran Gastric venting study was normal Continue Protonix Continue Carafate Continue when necessary Phenergan Continue regular diet and monitor patient's intake and symptoms Follow CBC Hypertension Cardizem started Amlodipine held Continue as needed clonidine VALERIA Likely related to dehydration from nausea and vomiting Renal function has improved Follow renal function IV hydration if needed for poor by mouth intake secondary to nausea Once by mouth intake improves. IV hydration Hypokalemia Monitor and replace as needed Hyperbilirubinemia Elevated AST Follow as an outpatient Stable Diabetes mellitus Holding metformin Follow blood sugars Insulin sliding scale Diabetic diet DVT prophylaxis SCDs Anticoagulants contraindicated Problem Qualifiers (1) DM (diabetes mellitus): (2) Acute renal failure: Kennedy Frias MD Jan 12, 2017 10:44
--- NOTE | 2017-01-12 12:13 | HHI.GIFU ---
Subjective Remarks Resting in bed. States he is tired, but no n/v, abdominal pain. Tolerating diet. (Dianna Denise) Objective Vitals I&O Vital Signs Date Time Temp Pulse Resp B/P (MAP) Pulse Ox O2 Delivery O2 Flow Rate FiO2 01/12/17 08:00 97.6 120 18 110/78 (89) 98 01/12/17 04:45 97.9 112 16 111/82 (92) 97 01/12/17 01:30 Room Air 01/12/17 00:50 98.7 114 17 112/78 (89) 98 01/11/17 22:54 18 01/11/17 20:15 98 01/11/17 20:10 98.1 117 18 141/90 (107) 96 01/11/17 16:00 98.1 100 18 135/86 (102) 96 I/O 01/11/17 01/11/17 01/11/17 01/12/17 01/12/17 01/12/17 06:59 14:59 22:59 06:59 14:59 22:59 Intake Total 480 ml 740 ml 240 ml 480 ml Balance 480 ml 740 ml 240 ml 480 ml Intake Oral 480 ml 740 ml 240 ml 480 ml # Voids 2 2 1 2 # Bowel Movements 0 0 0 0 Laboratory Laboratory Tests Test 01/12/17 05:37 White Blood Count 8.8 Red Blood Count 4.43 Hemoglobin 14.6 Hematocrit 41.1 Mean Corpuscular Volume 92.8 Mean Corpuscular Hemoglobin 32.9 Mean Corpuscular Hemoglobin Concent 35.5 Red Cell Distribution Width 13.5 Platelet Count 180 Mean Platelet Volume 8.0 Blood Urea Nitrogen 17 Creatinine 0.90 Random Glucose 149 Calcium Level 9.4 Sodium Level 135 Potassium Level 3.2 Chloride Level 101 Carbon Dioxide Level 21.9 Anion Gap 12 Estimat Glomerular Filtration Rate 105 Date/Time Source Procedure Growth Status 01/07/17 04:20 Urine Clean Catch Urine Culture - Final NO GROWTH IN 48 HOURS. Complete Imaging Last Impressions Gastric Emptying Nuclear Medicine 01/09/17 0000 Signed Impressions: Service Date/Time: Monday, January 09, 2017 11:24 - CONCLUSION: Normal gastric emptying.. Johan Payton MD Liver Ultrasound 01/08/17 0000 Signed Impressions: Service Date/Time: Sunday, January 08, 2017 08:08 - CONCLUSION: 1. Echogenic liver likely moderate hepatic steatosis. 2. No evidence for cholelithiasis. 3. Nonvisualization of the pancreas. Johan Payton MD Renal Ultrasound 01/07/17 0000 Signed Impressions: Service Date/Time: Saturday, January 07, 2017 07:33 - CONCLUSION: 1. No evidence for hydronephrosis. 2. Left kidney slightly heterogeneous of uncertain etiology but could be pyelonephritis in the right clinical setting. Johan Payton MD Chest X-Ray 01/07/17 0000 Signed Impressions: Service Date/Time: Saturday, January 07, 2017 01:42 - CONCLUSION: 1. Basilar atelectasis. No effusion. No pneumothorax. Heart size within normal limits. Castro Moctezuma MD Physical Exam HEENT: Normocephalic; atraumatic CHEST: CTA, CARDIAC: RRR ABDOMEN: Soft, nondistended, nontender; no hepatosplenomegaly; bowel sounds are present in all four quadrants. EXTREMITIES: No clubbing, cyanosis, or edema. SKIN: Normal; no rash; no jaundice. WELDER FITTER GAS: No focal deficits; alert and oriented times three. (Dianna Denise [facility]) Assessment and Plan Plan ASSESSMENT: - GIB, Hematemesis. HH stable. Pt was admitted for the same in September and underwent with EGD (09/20/16)----> There was LA Class C esophagitis noted; biopsy was performed 2. There was erythematous gastritis in the gastric antrum; biopsy was performed. 3. Normal duodenal mucosa 4. Retroflexed views revealed no abnormalities. Gastric mucosa with moderate active chronic gastritis and focal intestinal metaplasia, A Madelin stain is positive for a small number of Helicobacter-like organisms, distal esophagus biopsy with squamous mucosa with marked parakeratosis and mild chronic inflammation. He reports that he was treated with antibiotics and his symptoms improved, but since being off of the antibiotics, he has been having some burning discomfort in his stomach and esophagus. No further hematemesis. Helicobacter pylori ag pending. Called lab- this is a send out and they do not expect it back for another 3-4 days. Clinically he is much improved- tolerating diet, no n/v. no pain. HH stable. He has not had any gi bleeding. - Intractable N/V, Epigastric pain. GES unremarkable. Reglan. Improved. - Hiccups. Improved with reglan. GES unremarkable. - Mild elevation of LFTs. T. Bili 1.4, AST 50, ALT 41, Alk Phosph 57. US liver (01/08/17)---> echogenic liver likely moderate hepatic steatosis, no evidence for cholelithiasis, nonvisualization of the pancreas. - VALERIA. Has had intractable nausea/vomiting, likely related to dehydration. IVF. Improved. - DM. Per attending. PLAN: - EMMANUEL - Cont. PPI - Cont. Carafate - Will d/c reglan - Await H. Pylori Stool Ag- called lab and they do not expect this back for another 3-4 days - He is okay to go home from a GI standpoint with outpatient follow up - Pt seen and examined by Dr. Ferrara and myself and this note is written on his behalf (Dianna Denise) Physician Comments Seen and examined, plan as above. Stable from GI point of view, please notify us if needed . (Lisa Ferrara MD) Dianna Denise Jan 12, 2017 12:13 Lisa Ferrara MD Jan 12, 2017 12:47
[2017-01-12] MEDS: PANTOPRAZOLE SODIUM 40 MG VIAL IV PUSH SCH (13:10)
[2017-01-12] MEDS: MORPHINE SULFATE 4 MG/ML INJ IV PRN (21:00)
[2017-01-13] VITALS (7 sets, daily range): BP systolic 105–132; BP diastolic 79–89; PULSE 92–108; RESP 16–18; TEMP 98.4–100; O2SAT 96–98
[2017-01-13] MEDS: PANTOPRAZOLE SODIUM 40 MG VIAL IV PUSH SCH ×2 (00:25→13:50)
[2017-01-13] MEDS: PROMETHAZINE HCL 25 MG TAB PO SCH ×5 (00:25→23:21)
[2017-01-13] MEDS: SUCRALFATE 1 GM/10 ML CUP PO SCH ×4 (05:52→20:22)
[2017-01-13] MEDS: INSULIN ASPART SUPPLEMENTAL SCALE SQ SCH ×4 (06:25→20:24)
[2017-01-13 08:21] LABS: BICARBONATE 22.1 MEQ/L (21.0-32.0); POTASSIUM 3.3 MEQ/L (3.5-5.1)
[2017-01-13] MEDS ORDERED: POTASSIUM CHLORIDE 10 MEQ CONTROLLED RELEASE TAB PO ONE (08:45)
[2017-01-13] MEDS: POLYETHYLENE GLYCOL 17 GM PKG PO SCH (09:00)
[2017-01-13] MEDS: DOCUSATE SODIUM 50 MG/SENNA 8.6 MG TAB PO SCH ×2 (09:00→20:23)
[2017-01-13] MEDS: DILTIAZEM-CD 120 MG CAP ER PO SCH (09:57)
[2017-01-13] MEDS: SODIUM CHLORIDE 0.9% FLUSH 10 ML FLUSH IV FLUSH SCH ×2 (09:57→20:25)
[2017-01-13] MEDS: SODIUM CHLOR 0.9% 1000 ML INJ 1,000 ML IV SCH ×3 (09:58→21:45)
--- NOTE | 2017-01-13 14:39 | HHI.PR ---
Subjective Remarks Possibility of discharge discussed with the patient. He is apprehensive to leave. He does not feel his GI symptoms have improved. She would like to either get his H. pylori result her start treatment empirically for H. pylori being has a history of this, prior to considering discharge. He is hoping to have some improvement in his symptoms prior to discharge. Objective Vital Signs Date Time Temp Pulse Resp B/P (MAP) Pulse Ox O2 Delivery O2 Flow Rate FiO2 01/13/17 12:00 99.0 100 18 111/82 (92) 98 01/13/17 08:00 98.9 99 18 105/79 (88) 97 01/13/17 04:45 98.4 108 16 124/84 (97) 98 01/13/17 00:55 99.3 104 16 121/86 (98) 96 01/12/17 20:57 97 01/12/17 20:50 99.0 102 17 133/94 (107) 97 01/12/17 16:00 98.0 111 16 134/94 (107) 99 I/O 01/12/17 01/12/17 01/12/17 01/13/17 01/13/17 01/13/17 07:00 15:00 23:00 07:00 15:00 23:00 Intake Total 480 ml 480 ml 480 ml 480 ml Output Total 3 ml Balance 480 ml 477 ml 480 ml 480 ml Intake Oral 480 ml 480 ml 480 ml 480 ml Output Urine Total 3 ml # Voids 2 2 2 # Bowel Movements 0 1 0 2 Result Diagram: 01/12/17 0537 01/13/17 0716 Objective Remarks GENERAL: NAD, A&Ox3 HEAD: Normocephalic. NECK: Supple, trachea midline. No lymphadenopathy. EYES: No scleral icterus. No injection or drainage. CARDIOVASCULAR: Regular rate and rhythm without murmurs, gallops, or rubs. RESPIRATORY: Breath sounds equal bilaterally. No accessory muscle use. GASTROINTESTINAL: Abdomen soft, non-tender, nondistended. MUSCULOSKELETAL: No cyanosis, or edema. SKIN: Warm and dry. NEURO: No focal neurological deficitis. A/P Problem List: (1) Coffee ground emesis ICD Code: K92.0 - Hematemesis Status: Acute (2) Intractable nausea and vomiting ICD Code: R11.2 - Nausea with vomiting, unspecified Status: Acute (3) VALERIA (acute kidney injury) ICD Code: N17.9 - Acute kidney failure, unspecified Status: Acute (4) DM (diabetes mellitus) ICD Code: E11.9 - Type 2 diabetes mellitus without complications Status: Acute (5) GI bleed ICD Code: K92.2 - Gastrointestinal hemorrhage, unspecified Status: Acute (6) Acute renal failure ICD Code: N17.9 - Acute kidney failure, unspecified Status: Acute Assessment and Plan Assessment and Plan 56-year-old male admitted secondary to hyperemesis, GI bleed, recurrent hiccups and esophageal pains with reported dysphagia with fluid boluses. Continue Cardizem. No recurrence of esophageal spasms. As needed Ativan for hiccups. Follow H pylori results, expected in approximately 2-3 days. Monitor patient's symptoms. Considering starting empiric treatment of H. pylori (this is the patient's preference). Upper GI bleed Recurrent hiccups Recurrent Intractable N/V Epigastric pain Suspected esophageal spasms GI following Blood pressure treatments changed from amlodipine to Cardizem for calcium channel terrance benefit Trial of sildenafil 20 mg by mouth 3 times a day, if this provides benefit will wean to lowest tolerated dose Continue Zofran Gastric venting study was normal Continue Protonix Continue Carafate Continue when necessary Phenergan Continue regular diet and monitor patient's intake and symptoms Follow CBC Hypertension Cardizem started Amlodipine held Continue as needed clonidine VALERIA Likely related to dehydration from nausea and vomiting Renal function has improved Follow renal function IV hydration if needed for poor by mouth intake secondary to nausea Once by mouth intake improves. IV hydration Hypokalemia Monitor and replace as needed Hyperbilirubinemia Elevated AST Follow as an outpatient Stable Diabetes mellitus Holding metformin Follow blood sugars Insulin sliding scale Diabetic diet DVT prophylaxis SCDs Anticoagulants contraindicated Problem Qualifiers (1) DM (diabetes mellitus): (2) Acute renal failure: Kennedy Frias MD Jan 13, 2017 14:39
[2017-01-13] MEDS ORDERED: BISMUTH SUBSALICYLATE 240 ML BTL PO ONE (22:30)
[2017-01-13] MEDS ORDERED: TETRACYCLINE HCL 500 MG CAP PO ONE (22:30)
[2017-01-13] MEDS ORDERED: metroNIDAZOLE 250 MG TAB PO ONE (22:30)
[2017-01-13] MEDS ORDERED: TETRACYCLINE HCL 250 MG CAP PO ONE (23:15)
[2017-01-13] MEDS: PANTOPRAZOLE SOD 40 MG DELAYED RELEASE TAB PO SCH (23:22)
[2017-01-14] VITALS: BP 131/91; PULSE 92; RESP 16; TEMP 99.5; O2SAT 98
[2017-01-14 04:00] VITALS: BP 111/80; PULSE 98; RESP 17; TEMP 98.7; O2SAT 99
[2017-01-14 06:10] LABS: HEMATOCRIT 39.4 % (39.0-51.0); MEAN CELL VOLUME 93.2 FL (80.0-100.0); MEAN CORPUSCULAR HEMOGLOBIN 32.3 PG (27.0-34.0); MEAN CORPUSCULAR HGB CONC 34.6 % (32.0-36.0); PLATELET COUNT 241 TH/MM3 (150-450); RED BLOOD COUNT 4.23 MIL/MM3 (4.50-5.90); RED CELL DISTRIBUTION WIDTH 13.8 % (11.6-17.2); REVIEW FLAG FINAL; WHITE BLOOD COUNT 7.3 TH/MM3 (4.0-11.0)
[2017-01-14] MEDS: SUCRALFATE 1 GM/10 ML CUP PO SCH ×2 (06:27→12:03)
[2017-01-14] MEDS: TETRACYCLINE HCL 250 MG CAP PO SCH ×2 (06:27→12:03)
[2017-01-14] MEDS: PROMETHAZINE HCL 25 MG TAB PO SCH ×2 (06:27→12:04)
[2017-01-14] MEDS: metroNIDAZOLE 250 MG TAB PO SCH ×3 (06:27→12:04)
[2017-01-14 06:28] LABS: BICARBONATE 23.9 MEQ/L (21.0-32.0); POTASSIUM 3.3 MEQ/L (3.5-5.1)
[2017-01-14] MEDS: INSULIN ASPART SUPPLEMENTAL SCALE SQ SCH ×2 (06:28→12:13)
[2017-01-14] MEDS: BISMUTH SUBSALICYLATE 240 ML BTL PO SCH ×3 (06:28→12:13)
[2017-01-14 08:00] VITALS: BP 126/86; PULSE 86; RESP 17; TEMP 98.5; O2SAT 99
[2017-01-14] MEDS: DOCUSATE SODIUM 50 MG/SENNA 8.6 MG TAB PO SCH (08:30)
[2017-01-14] MEDS: PANTOPRAZOLE SOD 40 MG DELAYED RELEASE TAB PO SCH (08:30)
[2017-01-14] MEDS: DILTIAZEM-CD 120 MG CAP ER PO SCH (08:30)
[2017-01-14] MEDS: POLYETHYLENE GLYCOL 17 GM PKG PO SCH (08:33)
[2017-01-14] MEDS: SODIUM CHLORIDE 0.9% FLUSH 10 ML FLUSH IV FLUSH SCH (08:33)
--- NOTE | 2017-01-14 10:19 | HHI.PR ---
Subjective Remarks This is a pleasant 56 y/o male with DM II, and GERD, who came with epigastric Pain, Nausea, vomit and Persistent Hiccups for one week Previous admit 09/19-09/21/16 for hematemesis, s/p EGD by Dr. Pimentel w/ LA Class C Esophagitis and Gastritis, instructed to continue w/ PPI and Carafate and follow up w/ PCP. stable in his bedroom no nausea, vomit or diarrhea already recommended for discharge by GI specialist today he wants to go home will be discharge home. Objective Vital Signs Date Time Temp Pulse Resp B/P (MAP) Pulse Ox O2 Delivery O2 Flow Rate FiO2 01/14/17 08:00 98.5 86 17 126/86 (99) 99 01/14/17 04:00 98.7 98 17 111/80 (90) 99 01/14/17 00:00 99.5 92 16 131/91 (104) 98 01/13/17 20:21 93 01/13/17 19:00 100.0 92 16 132/89 (103) 98 01/13/17 16:00 99.1 95 18 126/88 (101) 97 01/13/17 12:00 99.0 100 18 111/82 (92) 98 I/O 01/13/17 01/13/17 01/13/17 01/14/17 01/14/17 01/14/17 06:59 14:59 22:59 06:59 14:59 22:59 Intake Total 480 ml 600 ml 480 ml 480 ml Output Total 600 ml Balance 480 ml 600 ml -120 ml 480 ml Intake Oral 480 ml 600 ml 480 ml 480 ml Output Urine Total 600 ml # Voids 2 3 1 # Bowel Movements 2 0 0 0 Result Diagram: 01/14/17 0520 01/14/17 0520 Imaging Last Impressions Gastric Emptying Nuclear Medicine 01/09/17 0000 Signed Impressions: Service Date/Time: Monday, January 09, 2017 11:24 - CONCLUSION: Normal gastric emptying.. Johan Payton MD Liver Ultrasound 01/08/17 0000 Signed Impressions: Service Date/Time: Sunday, January 08, 2017 08:08 - CONCLUSION: 1. Echogenic liver likely moderate hepatic steatosis. 2. No evidence for cholelithiasis. 3. Nonvisualization of the pancreas. Johan Payton MD Renal Ultrasound 01/07/17 0000 Signed Impressions: Service Date/Time: Saturday, January 07, 2017 07:33 - CONCLUSION: 1. No evidence for hydronephrosis. 2. Left kidney slightly heterogeneous of uncertain etiology but could be pyelonephritis in the right clinical setting. Johan Payton MD Chest X-Ray 01/07/17 0000 Signed Impressions: Service Date/Time: Saturday, January 07, 2017 01:42 - CONCLUSION: 1. Basilar atelectasis. No effusion. No pneumothorax. Heart size within normal limits. Castro Moctezuma MD Procedures EGD Other Results Laboratory Tests Test 01/07/17 04:20 01/08/17 00:58 01/08/17 07:30 01/10/17 02:30 Urine Color YELLOW Urine Turbidity HAZY Urine pH 6.0 Urine Specific [place] 1.014 Urine Protein 100 mg/dL Urine Glucose (UA) 150 mg/dL Urine Ketones NEG mg/dL Urine Occult Blood MOD Urine Nitrite NEG Urine Bilirubin NEG Urine Urobilinogen LESS THAN 2.0 MG/DL Urine Leukocyte Esterase NEG Urine RBC 11 /hpf Urine WBC 13 /hpf Urine Squamous Epithelial Cells 6 /hpf Urine Transitional Epithelial Cells 1 /hpf Urine Amorphous Sediment RARE Urine Bacteria FEW /hpf Urine Hyaline Casts 162 /lpf Urine Mucus FEW /lpf Microscopic Urinalysis Comment CULTURE INDICATED Urine Random Creatinine 171.3 MG/DL Urine Random Sodium 50 MEQ/L Urine Opiates Screen NEG Urine Barbiturates Screen NEG Urine Amphetamines Screen NEG Urine Benzodiazepines Screen NEG Urine Cocaine Screen NEG Urine Cannabinoids Screen NEG Magnesium Level 2.3 MG/DL Lipase 171 U/L Hepatitis A IgM Antibody NEGATIVE Hepatitis B Surface Antigen NEGATIVE Hepatitis B Core IgM Antibody NEGATIVE Hepatitis C Antibody NEGATIVE Stool Helicobacter pylori Antigen Not detected Test 01/10/17 06:48 01/14/17 05:20 Neutrophils (%) (Auto) 59.3 % Lymphocytes (%) (Auto) 27.3 % Monocytes (%) (Auto) 11.5 % Eosinophils (%) (Auto) 1.5 % Basophils (%) (Auto) 0.4 % Neutrophils # (Auto) 3.8 TH/MM3 Lymphocytes # (Auto) 1.7 TH/MM3 Monocytes # (Auto) 0.7 TH/MM3 Eosinophils # (Auto) 0.1 TH/MM3 Basophils # (Auto) 0.0 TH/MM3 CBC Comment DIFF FINAL Differential Comment Blood Urea Nitrogen 14 MG/DL 12 MG/DL Creatinine 0.91 MG/DL 0.99 MG/DL Random Glucose 142 MG/DL 154 MG/DL Total Protein 7.4 GM/DL Albumin 3.2 GM/DL Calcium Level 9.1 MG/DL 8.6 MG/DL Alkaline Phosphatase 68 U/L Aspartate Amino Transf (AST/SGOT) 43 U/L Alanine Aminotransferase (ALT/SGPT) 40 U/L Total Bilirubin 1.2 MG/DL Sodium Level 137 MEQ/L 135 MEQ/L Potassium Level 3.3 MEQ/L 3.3 MEQ/L Chloride Level 104 MEQ/L 102 MEQ/L Carbon Dioxide Level 24.2 MEQ/L 23.9 MEQ/L White Blood Count 7.3 TH/MM3 Red Blood Count 4.23 MIL/MM3 Hemoglobin 13.6 GM/DL Hematocrit 39.4 % Mean Corpuscular Volume 93.2 FL Mean Corpuscular Hemoglobin 32.3 PG Mean Corpuscular Hemoglobin Concent 34.6 % Red Cell Distribution Width 13.8 % Platelet Count 241 TH/MM3 Mean Platelet Volume 7.6 FL Anion Gap 9 MEQ/L Estimat Glomerular Filtration Rate 94 ML/MIN Objective Remarks GENERAL: NAD, A&Ox3 HEAD: Normocephalic. NECK: Supple, trachea midline. No lymphadenopathy. EYES: No scleral icterus. No injection or drainage. CARDIOVASCULAR: Regular rate and rhythm without murmurs, gallops, or rubs. RESPIRATORY: Breath sounds equal bilaterally. No accessory muscle use. GASTROINTESTINAL: Abdomen soft, non-tender, nondistended. MUSCULOSKELETAL: No cyanosis, or edema. SKIN: Warm and dry. NEURO: No focal neurological deficitis. Medications and IVs Current Medications Medications (Trade) Dose Ordered Sig/[place] Route Start Time Stop Time Status Last Admin (D50w (Vial) Inj) 50 ml UNSCH PRN IV 01/07/17 04:00 (Glucagon Inj) 1 mg UNSCH PRN OTHER 01/07/17 04:00 (NovoLOG SUPPLEMENTAL SCALE) 1 ACHS SLIDING SCALE SQ 01/07/17 07:00 01/13/17 20:24 Sodium Chloride 1,000 ml @ 100 mls/hr Q10H IV 01/07/17 03:58 01/08/17 19:58 (NS Flush) 2 ml UNSCH PRN IV FLUSH 01/07/17 04:00 (NS Flush) 2 ml BID IV FLUSH 01/07/17 09:00 01/14/17 08:33 (Zofran Inj) 4 mg Q6H PRN IVP 01/07/17 04:00 (Tylenol) 650 mg Q6H PRN PO 01/07/17 04:00 (Morphine Inj) 1 mg Q3H PRN IV 01/07/17 04:00 (Morphine Inj) 2 mg Q3H PRN IV 01/07/17 04:00 01/12/17 21:00 (Heatl-Colace) 1 tab BID PO 01/07/17 09:00 01/14/17 08:30 (Milk Of Magnesia Liq) 30 ml Q12H PRN PO 01/07/17 04:00 (Senokot) 17.2 mg Q12H PRN PO 01/07/17 04:00 (Dulcolax Supp) 10 mg DAILY PRN RECTAL 01/07/17 04:00 (Lactulose Liq) 30 ml DAILY PRN PO 01/07/17 04:00 (Thorazine) 50 mg Q8HR PRN PO 01/07/17 06:15 01/11/17 11:35 (Carafate Liq) 1 gm ACHS PO 01/07/17 16:00 01/14/17 06:27 (Catapres) 0.1 mg Q8HR PRN PO 01/08/17 14:30 01/10/17 00:14 (Miralax) 17 gm DAILY PO 01/09/17 09:00 (Phenergan) 12.5 mg Q6H PO 01/08/17 18:00 01/14/17 06:27 (Pill Splitter) 1 ea UNSCH PRN OTHER 01/08/17 18:00 (Cardizem Cd) 120 mg DAILY PO 01/11/17 09:00 01/14/17 08:30 (Ativan Inj) 0.5 mg Q6H PRN IV PUSH 01/11/17 09:15 (Protonix) 40 mg Q12HR PO 01/13/17 22:30 01/27/17 23:00 01/14/17 08:30 (Pepto-Bismol Liq) 30 ml QID PO 01/14/17 07:00 01/27/17 23:00 01/14/17 06:28 (Flagyl) 250 mg QID PO 01/14/17 07:00 01/27/17 23:00 01/14/17 06:27 (Sumycin) 500 mg ACHS PO 01/14/17 07:00 01/27/17 21:01 01/14/17 06:27 A/P Assessment and Plan 56-year-old male admitted secondary to hyperemesis, GI bleed, recurrent hiccups and esophageal pains with reported dysphagia with fluid boluses. Continue Cardizem. No recurrence of esophageal spasms. As needed Ativan for hiccups. Follow H pylori results, expected in approximately 2-3 days. Monitor patient's symptoms. Considering starting empiric treatment of H. pylori (this is the patient's preference). Upper GI bleed Recurrent hiccups Recurrent Intractable N/V Epigastric pain Suspected esophageal spasms GI specialist cleared for discharge. Blood pressure treatments changed from amlodipine to Cardizem for calcium channel terrance benefit Trial of sildenafil 20 mg by mouth 3 times a day, if this provides benefit will wean to lowest tolerated dose Continue Zofran, PPIs, Carafate, Treatment for H. Pylori initiated, for potential failed H. Pylori treatment. Protonix 40mg PO BID, Metronidazole 250mg PO QID, Tetracycline 500mg PO QID, and Bismuth 525mg PO QID - planned duration 14 days. Treatment to be discontinue if H. Pylori study is negative (due in about 2-3 days). Hypertension Cardizem started Amlodipine held Continue as needed clonidine VALERIA Improved. Hypokalemia replaced. Hyperbilirubinemia Elevated AST Follow as an outpatient Stable Diabetes mellitus Holding metformin Follow blood sugars Insulin sliding scale Diabetic diet continue Home medicines at discharge. DVT prophylaxis SCDs Anticoagulants contraindicated Discharge Planning Discharge Home today. Jacques Mauro MD Jan 14, 2017 10:19
[2017-01-14] MEDS ORDERED: POTASSIUM CHLORIDE 20 MEQ CONTROLLED RELEASE TAB PO ONE ×2 (11:00→13:00)
[2017-01-14] MEDS ORDERED: OXYC1CAP PO (11:18)
[2017-01-14] MEDS ORDERED: CARA1TAB6 PO (11:18)
[2017-01-14] MEDS ORDERED: PANT40TA3 PO (11:18)
[2017-01-14] MEDS ORDERED: PROM25TA10 PO (11:18)
[2017-01-14] MEDS ORDERED: CARD120C4 PO (11:18)
--- NOTE | 2017-01-14 11:22 | HHI.GIFU ---
Subjective Remarks Resting in bed. No n/v. No abdominal pain. No GI bleeding. tolerating diet. (Dianna Denise) Objective Vitals I&O Vital Signs Date Time Temp Pulse Resp B/P (MAP) Pulse Ox O2 Delivery O2 Flow Rate FiO2 01/14/17 08:00 98.5 86 17 126/86 (99) 99 01/14/17 04:00 98.7 98 17 111/80 (90) 99 01/14/17 00:00 99.5 92 16 131/91 (104) 98 01/13/17 20:21 93 01/13/17 19:00 100.0 92 16 132/89 (103) 98 01/13/17 16:00 99.1 95 18 126/88 (101) 97 01/13/17 12:00 99.0 100 18 111/82 (92) 98 I/O 01/13/17 01/13/17 01/13/17 01/14/17 01/14/17 01/14/17 06:59 14:59 22:59 06:59 14:59 22:59 Intake Total 480 ml 600 ml 480 ml 480 ml Output Total 600 ml Balance 480 ml 600 ml -120 ml 480 ml Intake Oral 480 ml 600 ml 480 ml 480 ml Output Urine Total 600 ml # Voids 2 3 1 # Bowel Movements 2 0 0 0 Laboratory Laboratory Tests Test 01/14/17 05:20 White Blood Count 7.3 Red Blood Count 4.23 Hemoglobin 13.6 Hematocrit 39.4 Mean Corpuscular Volume 93.2 Mean Corpuscular Hemoglobin 32.3 Mean Corpuscular Hemoglobin Concent 34.6 Red Cell Distribution Width 13.8 Platelet Count 241 Mean Platelet Volume 7.6 Blood Urea Nitrogen 12 Creatinine 0.99 Random Glucose 154 Calcium Level 8.6 Sodium Level 135 Potassium Level 3.3 Chloride Level 102 Carbon Dioxide Level 23.9 Anion Gap 9 Estimat Glomerular Filtration Rate 94 Date/Time Source Procedure Growth Status 01/07/17 04:20 Urine Clean Catch Urine Culture - Final NO GROWTH IN 48 HOURS. Complete Imaging Last Impressions Gastric Emptying Nuclear Medicine 01/09/17 0000 Signed Impressions: Service Date/Time: Monday, January 09, 2017 11:24 - CONCLUSION: Normal gastric emptying.. Johan Payton MD Liver Ultrasound 01/08/17 0000 Signed Impressions: Service Date/Time: Sunday, January 08, 2017 08:08 - CONCLUSION: 1. Echogenic liver likely moderate hepatic steatosis. 2. No evidence for cholelithiasis. 3. Nonvisualization of the pancreas. Johan Payton MD Renal Ultrasound 01/07/17 0000 Signed Impressions: Service Date/Time: Saturday, January 07, 2017 07:33 - CONCLUSION: 1. No evidence for hydronephrosis. 2. Left kidney slightly heterogeneous of uncertain etiology but could be pyelonephritis in the right clinical setting. Johan Payton MD Chest X-Ray 01/07/17 0000 Signed Impressions: Service Date/Time: Saturday, January 07, 2017 01:42 - CONCLUSION: 1. Basilar atelectasis. No effusion. No pneumothorax. Heart size within normal limits. Castro Moctezuma MD Physical Exam HEENT: Normocephalic; atraumatic CHEST: CTA, CARDIAC: RRR ABDOMEN: Soft, nondistended, nontender; no hepatosplenomegaly; bowel sounds are present in all four quadrants. EXTREMITIES: No clubbing, cyanosis, or edema. SKIN: Normal; no rash; no jaundice. ASSOCIATE PROFESSOR OF GEOGRAPHY: No focal deficits; alert and oriented times three. (Dianna Denise [facility]) Assessment and Plan Plan ASSESSMENT: - GIB, Hematemesis. HH stable. Pt was admitted for the same in September and underwent with EGD (09/20/16)----> There was LA Class C esophagitis noted; biopsy was performed 2. There was erythematous gastritis in the gastric antrum; biopsy was performed. 3. Normal duodenal mucosa 4. Retroflexed views revealed no abnormalities. Gastric mucosa with moderate active chronic gastritis and focal intestinal metaplasia, A Madelin stain is positive for a small number of Helicobacter-like organisms, distal esophagus biopsy with squamous mucosa with marked parakeratosis and mild chronic inflammation. He reports that he was treated with antibiotics and his symptoms improved, but since being off of the antibiotics, he has been having some burning discomfort in his stomach and esophagus. No further hematemesis during this hospitalization. Helicobacter pylori Stool ag negative. He is tolerating diet, no active bleeding. - Intractable N/V, Epigastric pain. GES unremarkable. RESOLVED. - Hiccups. Improved with reglan. GES unremarkable. RESOLVED - Mild elevation of LFTs. US liver (01/08/17)---> echogenic liver likely moderate hepatic steatosis, no evidence for cholelithiasis, nonvisualization of the pancreas. Stable. - VALERIA. Has had intractable nausea/vomiting, likely related to dehydration. IVF. Improved. - DM. Per attending. PLAN: - Okay to d/c home from GI standpoint - EMMANUEL - Cont. PPI - Cont. Carafate - GI will sign off - Pt seen and examined by Dr. Ferrara and myself and this note is written on his behalf (Dianna Denise) Physician Comments Agree with the assessment and plan as above. Stable from GI point of view. (Lisa Ferrara MD) Dianna Denise Jan 14, 2017 11:22 Lisa Ferrara MD Jan 14, 2017 14:48
--- NOTE | 2017-01-14 11:23 | HHI.DS ---
Discharge Summary Admission Date Jan 07, 2017 at 03:40 Discharge Date: Jan 14, 2017 Admitting Diagnosis upper GI bleed, ARF (1) GI bleed ICD Code: K92.2 - Gastrointestinal hemorrhage, unspecified Diagnosis: Principal Status: Acute (2) Intractable nausea and vomiting ICD Code: R11.2 - Nausea with vomiting, unspecified Diagnosis: Principal Status: Acute (3) VALERIA (acute kidney injury) ICD Code: N17.9 - Acute kidney failure, unspecified Diagnosis: Principal Status: Acute (4) DM (diabetes mellitus) ICD Code: E11.9 - Type 2 diabetes mellitus without complications Diagnosis: Principal Status: Acute Procedures EGD Brief History - From Admission This is a 56-year-old male with PMH of DM and GERD who presented to the ER with complaints of epigastric pain, nausea, vomiting and persistent hiccups for approx 1wk. States has been taking OTC medications with no relief. Denies fever, chills, diarrhea or sick contacts. Reports vomiting now coffee ground emesis, similar to previous episode of GI Bleed. Previous admit 09/19-09/21/16 for hematemesis, s/p EGD by Dr. Pimentel w/ NAYLA Class C Esophagitis and Gastritis, instructed to continue w/ PPI and Carafate and follow up w/ PCP. States he follows at the [facility] and was recently taken off his medications by his PCP approx 1mo ago, he is unsure why. On arrival, BP 123/75, HR 114, O2 sat 100% on RA, Temp 99.1. WBC 20.1, elevated neutrophil count. Creatinine 5.36, previously 0.9905-17. UA pending. Urine Drug Screen pending. CXR with basilar atelectasis. S/p IVF and analgesics/antiemetics in ER w/ some improvement. Started on Protonix gtt, GI Consulted by ER physician. CBC/BMP: 01/14/17 0520 01/14/17 0520 Significant Findings Laboratory Tests Test 01/12/17 05:37 01/13/17 07:16 01/14/17 05:20 Red Blood Count 4.43 MIL/MM3 (4.50-5.90) 4.23 MIL/MM3 (4.50-5.90) Random Glucose 149 MG/DL (74-106) 154 MG/DL (74-106) 154 MG/DL (74-106) Sodium Level 135 MEQ/L (136-145) 133 MEQ/L (136-145) 135 MEQ/L (136-145) Potassium Level 3.2 MEQ/L (3.5-5.1) 3.3 MEQ/L (3.5-5.1) 3.3 MEQ/L (3.5-5.1) Imaging Last Impressions Gastric Emptying Nuclear Medicine 01/09/17 0000 Signed Impressions: Service Date/Time: Monday, January 09, 2017 11:24 - CONCLUSION: Normal gastric emptying.. Johan Payton MD Liver Ultrasound 01/08/17 0000 Signed Impressions: Service Date/Time: Sunday, January 08, 2017 08:08 - CONCLUSION: 1. Echogenic liver likely moderate hepatic steatosis. 2. No evidence for cholelithiasis. 3. Nonvisualization of the pancreas. Johan Payton MD Renal Ultrasound 01/07/17 0000 Signed Impressions: Service Date/Time: Saturday, January 07, 2017 07:33 - CONCLUSION: 1. No evidence for hydronephrosis. 2. Left kidney slightly heterogeneous of uncertain etiology but could be pyelonephritis in the right clinical setting. Johan Payton MD Chest X-Ray 01/07/17 0000 Signed Impressions: Service Date/Time: Saturday, January 07, 2017 01:42 - CONCLUSION: 1. Basilar atelectasis. No effusion. No pneumothorax. Heart size within normal limits. Castro Moctezuma MD PE at Discharge GENERAL: NAD, A&Ox3 HEAD: Normocephalic. NECK: Supple, trachea midline. No lymphadenopathy. EYES: No scleral icterus. No injection or drainage. CARDIOVASCULAR: Regular rate and rhythm without murmurs, gallops, or rubs. RESPIRATORY: Breath sounds equal bilaterally. No accessory muscle use. GASTROINTESTINAL: Abdomen soft, non-tender, nondistended. MUSCULOSKELETAL: No cyanosis, or edema. SKIN: Warm and dry. NEURO: No focal neurological deficits Hospital Course This is a pleasant 56 y/o male with DM II, and GERD, who came with epigastric Pain, Nausea, vomit and Persistent Hiccups for one week Previous admit 09/19-09/21/16 for hematemesis, s/p EGD by Dr. Pimentel w/ NAYLA Class C Esophagitis and Gastritis, instructed to continue w/ PPI and Carafate and follow up w/ PCP. stable in his bedroom no nausea, vomit or diarrhea already recommended for discharge by GI specialist today he wants to go home will be discharge home. Assessment and Plan 56-year-old male admitted secondary to hyperemesis, GI bleed, recurrent hiccups and esophageal pains with reported dysphagia with fluid boluses. Continue Cardizem. No recurrence of esophageal spasms. As needed Ativan for hiccups. Follow H pylori results, expected in approximately 2-3 days. Monitor patient's symptoms. Considering starting empiric treatment of H. pylori (this is the patient's preference). Upper GI bleed Recurrent hiccups Recurrent Intractable N/V Epigastric pain Suspected esophageal spasms GI specialist cleared for discharge. Blood pressure treatments changed from amlodipine to Cardizem for calcium channel terrance benefit Trial of sildenafil 20 mg by mouth 3 times a day, if this provides benefit will wean to lowest tolerated dose Continue Zofran, PPIs, Carafate, Treatment for H. Pylori initiated, for potential failed H. Pylori treatment. Protonix 40mg PO BID, Metronidazole 250mg PO QID, Tetracycline 500mg PO QID, and Bismuth 525mg PO QID - planned duration 14 days. Treatment to be discontinue if H. Pylori study is negative (due in about 2-3 days). Hypertension Cardizem started Amlodipine held Continue as needed clonidine VALERIA Improved. Hypokalemia replaced. Hyperbilirubinemia Elevated AST Follow as an outpatient Stable Diabetes mellitus Holding metformin Follow blood sugars Insulin sliding scale Diabetic diet continue Home medicines at discharge. DVT prophylaxis SCDs Anticoagulants contraindicated Discharge Planning Discharge Home today. Pt Condition on Discharge: Good Discharge Disposition: Discharge Home Discharge Time: > 30 minutes Discharge Instructions DIET: Follow Instructions for: Heart Healthy Diet, Diabetic Diet Activities you can perform: Regular-No Restrictions Jacques Mauro MD Jan 14, 2017 11:22
[2017-01-14 12:00] VITALS: BP 137/97; PULSE 95; RESP 17; TEMP 99.2; O2SAT 97
[2017-01-14] MEDS ORDERED: SUCR1TAB PO (12:24)
[2017-01-14] MEDS ORDERED: DILT120C7 PO (12:24)
[2017-01-14] MEDS ORDERED: PROT40TA PO (12:24)
== END 2017-01-14 15:38 | disposition home or self-care (01) | DRG 378 ==
LOC: NEPC 00:56 → NEDA 03:40 → N06A 04:35
PROVIDERS: ADMIT Internal Medicine; ATTEND Internal Medicine
DX: K92.0 Hematemesis (principal); N17.9 Acute kidney failure, unspecified; E11.40 Type 2 diabetes mellitus with diabetic neuropathy, unspecified; I95.9 Hypotension, unspecified; R13.10 Dysphagia, unspecified; K76.0 Fatty (change of) liver, not elsewhere classified; E86.0 Dehydration; K21.9 Gastro-esophageal reflux disease without esophagitis; E87.6 Hypokalemia; R06.6 Hiccough; E80.6 Other disorders of bilirubin metabolism; I10 Essential (primary) hypertension; Z79.84 Long term (current) use of oral hypoglycemic drugs; Z86.19 Personal history of other infectious and parasitic diseases
CPT/HCPCS: 71010; 76705; 76775; 78264; 80048; 80053; 80074; 80307; 81001; 82570; 82948; 83690; 83735; 84132; 84300; 85025; 85027; 87086; 87338; 96361; 96372; 96374; 96375; A9541; C9113; J1815; J2270; J2405; J2765; J3230; J3480; J7030; Q0169